=== PATIENT | female | born 1960 | race Caucasian/White ===

== ENCOUNTER → 2017-09-16 09:51 | Outpatient (CLI) | payer OTHER, SELFPAY ==
--- NOTE | 2017-09-16 09:55 | BI_ITS ---
MAMMOGRAPHY - BILATERAL SCREENING REASON FOR EXAM: Female, 57 years old. Routine annual screening examination. PERTINENT HISTORY: Sister with breast cancer. TECHNIQUE: Digital bilateral breast otilia (3D mammographic acquisition) in the CC and MLO projections. 2-D mediolateral oblique (MLO) and craniocaudad (CC) views of both breasts were obtained. CAD: Full Field Digital Mammography with Computer Added Detection was performed. COMPARISON: Comparison is made with prior study dated October 28, 2016 and October 30, 2015. FINDINGS: Breast Composition: The breasts are extremely dense, which lowers the sensitivity of mammography. There are no dominant masses or suspicious calcifications. No other significant abnormalities are identified. There has been no significant change since the prior study. BI/SCREENING MAMM (CAD), BILAT IMPRESSION: Stable bilateral screening mammogram. Yearly follow-up mammogram recommended. (A) ASSESSMENT CATEGORY: BIRADS Category 1: Negative. A letter regarding these results will be sent to the patient by the facility within 30 days. Approximately 10% of breast cancers are not detected by mammography. A normal mammogram should not delay biopsy of a clinically suspicious abnormality. [id number] Electronically Signed: Henrique De Jesus MD at 13:22 EDT Tel [phone], Service support ,
== END ==
PROVIDERS: Family Provider Family Medicine; PCP Family Medicine; Visit Provider Obstetrics & Gynecology
DX: Z12.31 Encounter for screening mammogram for malignant neoplasm of breast (principal)
CPT/HCPCS: 77063; 77067

== ENCOUNTER 2017-09-30 23:34 | Emergency (ER) | payer OTHER, SELFPAY ==
[2017-09-30 23:35] VITALS: BP 136/87; PULSE 87; RESP 16; TEMP 37.1; O2SAT 99; BMI 17.5
[2017-10-01] MEDS: Ondansetron 4 MG/2 ML Vial IV (00:02)
[2017-10-01] MEDS: Ketorolac 30 MG/ML Syringe IV (00:02)
[2017-10-01] MEDS: 0.9% Normal Saline 1,000 ML 250 ML IV (00:02)
--- NOTE | 2017-10-01 00:05 | CT_ITS ---
CT Abdomen And Pelvis W/O Contrast INDICATION: RT FLANK PAIN/BLADDER SPASMS/HX OF KS. COMPARISON: None TECHNIQUE: Noncontrast axial CT examination of the abdomen and pelvis with coronal and sagittal reformatted images. Radiation dose optimization technique applied. FINDINGS: The visualized lung bases are clear. The heart size is normal. The liver, gallbladder, spleen, adrenal glands, and pancreas demonstrate grossly unremarkable noncontrast CT appearance. There is moderate right-sided hydronephrosis and 2 renal calculi are seen in the right distal ureter approximately 2 cm proximal to the right ureterovesicular junction. The calculi measure 3 and 2 mm. A residual 4 mm calculus is present in the mid to inferior pole region of the right kidney. Left kidney is without evidence of nephrolithiasis or hydronephrosis. Bowel loops are nondistended. There is colonic diverticulosis without evidence of acute diverticulitis. The appendix is normal. Urinary bladder is nondistended. Osseous structures are grossly unremarkable. CT/Abdomen/Pelvis without Cont IMPRESSION: 2 calculi (3 and 2 mm) in the right distal ureter approximately 2 cm proximal to the ureterovesicular junction with moderate right-sided hydronephrosis and hydroureter. Residual 3 mm calculus in the right mid to lower pole region. Left kidney without evidence of nephrolithiasis or hydronephrosis. Colonic diverticulosis without evidence of acute diverticulitis. at 0045 Reported and signed by: Katharina Childers MD Electronically Signed: Katharina Childers MD at 0:43 EDT Tel , Service support ,
[2017-10-01 00:07] LABS: Bacteria 0 SEEN /hpf (None Seen); Mucous, Urine 0 SEEN /hpf (<or=2+); Squamous Epithelial Cells - UA 0 SEEN /hpf (5-10); White Blood Cells 0 SEEN /hpf (0-5)
[2017-10-01 00:14] LABS: Color, Urine Yellow (Yellow); Glucose, Dipstick Normal (Normal); Ketone-Dipstick Negative (Negative); Leukocyte Esterase-Dipstick 25 /ul (Negative); Nitrite-Dipstick Positive (Negative); Occult Blood-Urine 150 /ul (Negative); Protein-Dipstick 15 mg/dl (Negative); Specific Gravity, Urine 1.015 (1.002-1.030); Urine Clarity Sl. Cloudy (Clear); Urine Urobilinogen 4 mg/dl (Normal)
[2017-10-01 00:16] LABS: Hematocrit 38.4 % (37-47); Hemoglobin 12.5 g/dl (12.0-15.0); Mean Corp Hgb Conc 32.6 g/gl (32-36); Mean Corpuscular Hgb 29.8 pg (27.0-32.0); Mean Corpuscular Volume 91.4 fL (81-99); Mean Platelet Vol. 10.5 fl (6.2-12.0); POSITIVE COUNT NO; POSITIVE DIFFERENTIAL NO; POSITIVE MORPHOLOGY NO; Platelet Count 248 K/mm3 (150-450); RBC Distribution Width CV 12.7 % (11.6-14.6); RBC Distribution Width SD 41.4 fl (35.1-43.9); White Blood Count 8.2 K/mm3 (4.4-11.0)
[2017-10-01 00:17] LABS: Absolute Lymphocyte Count 2.57 X10^3/ul (0.83-4.51); Absolute Neutrophil Count 4.7 X10^3/uL (2.0-7.7); Basophil# 0.03 X10^3/uL; Basophil% 0.4 % (0-1); Eosinophil# 0.13 X10^3/uL; Eosinophils% 1.6 % (0-5); Lymphocyte # 2.57 X10^3/ul (4.0); Lymphocyte % 31.5 % (19-41); Monocyte# 0.74 X10^3/uL; Monocyte% 9.1 % (0-10); Neutrophil # 4.68 X10^3/uL (2.7-7.7); Neutrophil % 57.3 % (47-70)
[2017-10-01 00:18] LABS: Urine Bilirubin Dipstick 3 mg/dL (Negative)
[2017-10-01 00:19] LABS: Anion Gap 5 (5-15); BUN 16 mg/dL (7-18); BUN/Creat Ratio 22.6 RATIO (10-20); Calcium,Total 9.3 mg/dL (8.5-10.1); Chloride 106 mmol/L (98-107); Creatinine, Serum 0.71 mg/dL (0.55-1.02); EST Glomerular Filtration Rate 90 mL/min (>60); Est Glom Filt Rate - Afr Amer 109 mL/min (>60); Estimated Creatinine Clearance 58.65 ml/min; Glucose 112 mg/dL (74-106); Potassium 3.9 mmol/L (3.5-5.1); Sodium Level 140 mmol/L (136-145)
[2017-10-01 00:28] LABS: Amorphous Sediment 1+; Red Blood Cells-Urine 5-10 SEEN /hpf (0-5)
[2017-10-01] MEDS: Morphine 4 MG/ML Syringe IV (01:04)
--- NOTE | 2017-10-01 01:04 | ED.DCSUM_ITS ---
- ER Visit Summary Date of Service: 10/01/17 Chief Complaint: Right flank pain several days ago. She reports that the pain was then right lower abdomen the following morning. History of Present Illness: The patient is a 57 F who presents with acute right flank pain with radiation to the groin. She now reports spasm and pain in the right lower abdomen. She is presently on Azo. She states that has had no effect. She does report nausea and vomiting. She denies fever, chills night sweats. She denies any HEENT, respiratory or cardiac symptoms. She denies hematemesis, black stool or maroon stool. She does complain of discomfort with urination. She states she feels her bladder is spasming. She reports prior history of kidney stone. Last visit to the ER was 10 years ago. Physical Examination: Vital signs are noted. She appears in obvious discomfort. Head is atraumatic normocephalic. Pupils are equal round reactive. Extraocular muscles are intact. TMs are pearly white with landmarks noted. Nares patent with no drainage. Posterior pharynx without erythema or exudate. Uvula is midline. There is no dysphonia or dysphasia. Trachea is midline. There is no stridor with auscultation of the neck. Heart is regular without murmur, gallop or rub. S1 and S2 are normal. Lungs are clear to auscultation with good movement of air bilaterally. Abdomen is soft nontender with increased bowel sounds. There is no tenderness right lower quadrant. Negative Rovsing sign. She does have right CVA tenderness noted. Test Results: CBC is normal. Electro panels unremarkable. Urine reveals leukoesterase, nitrites and blood; however, the micro reveals 0 WBCs and 0 bacteria. There is no epithelial cells with 5-10 RBCs. There is a comment that there is bilirubin which in my opinion is a false positive result because of the Azo she is taking. CBC and BMP are unremarkable. CT of the abdomen and pelvis without contrast reveals a 2-3 mm right renal calculus. There is also 2 distal ureteral calculi measuring 2 and 3 mm with significant hydroureteronephrosis. Emergency Department Course and Treatment: IV was established and she was treated with 4 mg of Zofran IV push and 30 mrem of Toradol IV push. CT, CBC, BMP and UA was obtained to evaluate her symptoms. Differential includes renal calculi, pyelonephritis, cystitis, ureterolithiasis. Doubt appendicitis. Gynecologic pathology is also in the differential. Treatment Plan: Formed at 0100 that she is having severe pain again. 4 mg of morphine was ordered. Disposition: Was reassessed at 0130. She is pain-free after 2 mg of morphine. She was discharged to home with prescription for Flomax, Percocet and referred to Dr. Rodas Impression: 1. Acute right flank pain secondary to ureterolithiasis with hydroureter and nephrosis 2. Right renal calculus This note was generated with [employer] dictation software. It may contain incorrect words, spelling, and punctuation that were not noted in review of the chart prior to signing ED Disposition - Plan for ED Patient: Disposition: Home or Assisted Living Chief Complaint: Flank Pain Instructions: ED Stone Renal W Colic Prescriptions: Oxycodone HCl/Acetaminophen [Percocet 5/325] 1 tab PO Q6H PRN PRN 5 Days #20 tab PRN Reason: Pain Tamsulosin HCl [Flomax] 0.4 mg PO DAILY #7 cap Naproxen [Naprosyn] 500 mg PO BID #14 tab Referrals: Josesito Sr MD [Primary Care Provider] - Miah Rodas MD [STAFF PHYSICIAN] - 5-7 Days
[2017-10-01] MEDS: oxyCODONE 5 MG Tablet PO (01:56)
[2017-10-01 02:00] VITALS: BP 118/62; PULSE 74; RESP 18; O2SAT 99
== END 2017-10-01 02:01 | disposition home or self-care (01) ==
PROVIDERS: Emergency Provider Emergency Medicine; Family Provider Family Medicine; PCP Family Medicine
DX: N13.2 Hydronephrosis with renal and ureteral calculous obstruction (principal); R10.9 Unspecified abdominal pain; Z87.442 Personal history of urinary calculi; Z79.899 Other long term (current) drug therapy
CPT/HCPCS: 74176; 80048; 81001; 85025; 96361; 96374; 96375; 99282; J7030; J2405

== ENCOUNTER → 2017-10-20 11:59 | Outpatient (CLI) | payer OTHER, SELFPAY ==
[2017-10-24 11:07] LABS: HPV Reflexed? NOT INDICATED
== END ==
PROVIDERS: Visit Provider Obstetrics & Gynecology
DX: Z12.4 Encounter for screening for malignant neoplasm of cervix (principal)
CPT/HCPCS: 88175; G0145

== ENCOUNTER → 2021-01-22 08:34 | Outpatient (CLI) | payer SELFPAY ==
--- NOTE | 2021-01-22 08:39 | BI_ITS ---
MAMMOGRAPHY - BILATERAL SCREENING REASON FOR EXAM: Female, 60 years old. Routine annual screening examination. PERTINENT HISTORY: Sister with breast cancer. TECHNIQUE: Digital bilateral breast otilia (3D mammographic acquisition) in the CC and MLO projections. 2-D mediolateral oblique (MLO) and craniocaudad (CC) views of both breasts were obtained. CAD: Full Field Digital Mammography with Computer Added Detection was performed. COMPARISON: Comparison is made with prior abdomen examination dated 09/16/2017 and 10/28/2016. FINDINGS: Breast Composition: The breasts are extremely dense, which lowers the sensitivity of mammography. There are no dominant masses or suspicious calcifications. No other significant abnormalities are identified. There has been no significant change since the prior study. BI/SCREENING MAMM (CAD), BILAT IMPRESSION: Stable bilateral screening mammogram. Yearly follow-up mammogram recommended. (A) ASSESSMENT CATEGORY: BIRADS Category 1: Negative. A letter regarding these results will be sent to the patient by the facility within 30 days. Approximately 10% of breast cancers are not detected by mammography. A normal mammogram should not delay biopsy of a clinically suspicious abnormality. [id number] Electronically Signed: Henrique De Jesus MD at 9:27 EDT , Service support ,
--- NOTE | 2021-01-22 09:10 | BD_ITS ---
STUDY: DUAL ENERGY X-RAY ABSORPTIOMETRY / DXA REASON FOR EXAM: Female, 60 years old. 733.00OsteoporosisBONE DENSITY REASON FOR EXAM TECHNIQUE: Bone Mineral Density (BMD) measurements of lumbar spine and bilateral hips were obtained. COMPARISON: None. FINDINGS: Lumbar Spine (L1-L4): g/cm2 (0.724) / T-score (-2.9) / Z-score (-1.4) Findings are suggestive of osteoporosis with a high fracture risk. Left Femur Total: g/cm2 (0.500) / T-score (-3.6) / Z-score (-2.5) Left Femoral Neck: g/cm2 (0.406) / T-score (-4.0) / Z-score (-2.6) Right Femur Total: g/cm2 (0.464) / T-score (-3.9) / Z-score (-2.8) Right Femoral Neck: g/cm2 (0.427) / T-score (-3.8) / Z-score (-2.4) BD/Dexa Bone Density Study IMPRESSION: The patient is considered osteoporotic as outlined below according to World Brice Organization (WHO) criteria with a high fracture risk. Reference Information: The T-score is the number of standard deviations above or below the standard which is normal for young adults at their peak bone mineral density. The World Health Organization (WHO) interprets the T-scores as follows: Above -1 Normal bone density Between -1 and -2.5 Osteopenia Equal to / or below -2.5 Osteoporosis As a practical clinical guideline, osteopenia may be graded as follows: Mild -1 through -1.5 Moderate -1.6 through -2.0 Severe -2.1 through -2.4 The Z-score is the number of standard deviations above or below age-matched controls. A Z-score of less than -1.5 would be considered abnormal. References: 1. NIH Osteoporosis and Related Bone Diseases www osteo.org 2. International Society for Clinical Densitometry www iscd.org 3. National Osteoporosis Foundation www nof.org Electronically Signed: Henrique De Jesus MD at 10:58 EDT , Service support ,
== END ==
PROVIDERS: PCP Family Medicine; Referring Provider Family Medicine; Visit Provider Family Medicine
DX: M81.0 Age-related osteoporosis without current pathological fracture (principal); N95.1 Menopausal and female climacteric states; Z12.31 Encounter for screening mammogram for malignant neoplasm of breast
CPT/HCPCS: 77067; 77080

== ENCOUNTER → 2022-01-29 | Outpatient (CLI) | payer SELFPAY ==
--- NOTE | 2022-01-29 08:23 | BI_ITS ---
MAMMOGRAPHY - BILATERAL SCREENING 3-D TOMOSYNTHESIS REASON FOR EXAM: Female, 61 years old. SCREENING PERTINENT HISTORY: No significant family history. TECHNIQUE: 2-D mammograms and 3-D Tomosynthesis of the breast (s) were performed. CAD was performed. COMPARISON: 01/22/2021 FINDINGS: The breast composition is Extermely dense tissue. Scattered benign calcifications are seen. No dense spiculated masses or suspicious microcalcifications are identified. No architectural distortion is identified. There is no skin thickening or retraction. There has been no significant change since the prior study. BI/SCRN MAMM (CAD)W/NASRA BILAT IMPRESSION: No mammographic signs of malignancy. Routine yearly mammograms recommended. ASSESSMENT CATEGORY: BIRADS Category 1: Negative. A letter regarding these results will be sent to the patient by the facility within 30 days. FOLLOW UP RECOMMENDATION: Yearly follow up mammogram recommended. (A) Approximately 10% of breast cancers are not detected by mammography. A normal mammogram should not delay biopsy of a clinically suspicious abnormality. Electronically Signed: Baltazar Beatty MD at 8:23 EDT ,
== END | disposition home or self-care (01) ==
PROVIDERS: PCP Family Medicine; Referring Provider Family Medicine; Visit Provider Family Medicine
DX: Z12.31 Encounter for screening mammogram for malignant neoplasm of breast (principal)
CPT/HCPCS: 77063; 77067

== ENCOUNTER → 2023-01-21 | Outpatient (CLI) | payer SELFPAY ==
--- NOTE | 2023-01-21 12:27 | BI_ITS ---
MAMMOGRAPHY - BILATERAL SCREENING REASON FOR EXAM: Female, 62 years old. Routine annual screening examination. PERTINENT HISTORY: Sister with breast cancer. TECHNIQUE: Digital bilateral breast nasra (3D mammographic acquisition) in the CC and MLO projections. 2-D mediolateral oblique (MLO) and craniocaudad (CC) views of both breasts were obtained. CAD: Full Field Digital Mammography with Computer Added Detection was performed. COMPARISON: Comparison is made with prior study dated January 29, 2022 and January 22, 2021. FINDINGS: Breast Composition: The breasts are extremely dense, which lowers the sensitivity of mammography. There are no dominant masses or suspicious calcifications. Stable small benign-appearing bilateral axillary lymph nodes. No other significant abnormalities are identified. There has been no significant change since the prior study. BI/SCRN MAMM (CAD)W/NASRA BILAT IMPRESSION: Stable bilateral screening mammogram. Yearly follow-up mammogram recommended. (A) ASSESSMENT CATEGORY: BIRADS Category 2: Benign. A letter regarding these results will be sent to the patient by the facility within 30 days. Approximately 10% of breast cancers are not detected by mammography. A normal mammogram should not delay biopsy of a clinically suspicious abnormality. [id number] Electronically Signed: Henrique De Jesus MD at 13:21 EDT ,
== END | disposition home or self-care (01) ==
PROVIDERS: PCP Family Medicine; Referring Provider Family Medicine; Visit Provider Family Medicine
DX: Z12.31 Encounter for screening mammogram for malignant neoplasm of breast (principal); Z80.3 Family history of malignant neoplasm of breast
CPT/HCPCS: 77063; 77067

== ENCOUNTER 2023-11-14 10:00 | Emergency (ER) | payer MEDICARE, BC, SELFPAY ==
[2023-11-14 10:01] VITALS: BP 141/65; PULSE 119; RESP 16; TEMP 36.4; O2SAT 97; BMI 17.5
--- NOTE | 2023-11-14 10:20 | EDS_ITS ---
HPI History of Present Illness Chief Complaint: Back Detail of Chief Complaint: Patient with back pain and palpitations. Informant: patient and spouse/S.O. Onset/Context/Timing Onset: Today and Month(s) Timing: Intermittent Quality: Dull and Aching Location: Lumbar Current Severity: Mild Maximum Severity: Mild Worsened by: improves with Nothing Relieved by: Nothing Associated Symptoms Associated Symptoms: Tingling and Radiation to Right Leg; Negative for Numbness Narrative Narrative: 63-year-old female history of high cholesterol. Since August she has been dealing with lower back pain that she has been seeing a chiropractor for. She is also getting physical therapy. Says at times she has burning discomfort down the right lateral side of her thigh. Denies any fall injury or trauma. No prior back surgery. She is also using a TENS unit. She denies any bowel or bladder incontinence. She denies any weakness to her lower extremities. Denies any fever. No weight change. Today while dealing with her back she had some palpitations. Denies any chest pain. Denies any recent illness. No weight loss or hair loss. Prior similar symptoms: Yes Recent Illness/Hospitalization: No PFSH PFSH Medical History Osteoporosis Hyperlipidemia Family hx of colon cancer Home Medications ?Medication ?Instructions ?Recorded ?Last Taken ?Type atorvastatin 20 mg tablet 20 mg PO QHS 10/01/17 Unknown History multivitamin with folic acid 400 1 tab PO DAILY 10/01/17 Unknown History mcg tablet (Thera) oxycodone-acetaminophen 5 mg-325 1 tab PO Q6H PRN PRN Pain 5 days 10/01/17 Unknown Rx mg tablet #20 tabs tamsulosin 0.4 mg capsule 0.4 mg PO DAILY #7 caps 10/01/17 Unknown Rx alendronate 70 mg tablet 70 mg PO QWEEK 08/23/23 Unknown History Allergy/AdvReac Type Severity Reaction Status Date / Time Sulfa (Sulfonamide Allergy Hives Verified 11/14/23 10:05 Antibiotics) Family History Grandmother Colon cancer Uncle Colon cancer Surgical History Hx of colonoscopy Social History current occupational status: retired Smoking Status: Never smoker substance use type: does not use ROS ROS ED ROS Narrative Denies recent illness. Review of Systems ROS Unobtainable: Denies due to encephalopathy Constitutional Constitutional ED: Denies chills or fever(s) Eyes Eyes: Denies blurry vision ENT ENT ED: Denies ear pain Cardiovascular Cardiovascular: Reports palpitations; Denies chest pain or racing heartbeat Respiratory/Chest Respiratory/Chest: Denies dyspnea Gastrointestinal Gastrointestinal: Denies abdominal pain, constipation, diarrhea, melena, nausea or vomiting Genitourinary Genitourinary ED: Denies dysuria or hematuria Musculoskeletal Musculoskeletal: Reports back pain; Denies arthralgias Integumentary Denies abscess or Abrasions Neurologic Neurologic: Denies headache(s) Psychiatric Psychiatric: Denies anxiety or depression Endocrine Endocrinology: Denies cold intolerance Hematologic/Lymphatic Hematologic/Lymphatic: Denies easy bleeding Allergic/Immunologic Allergic/Immunologic ED: Denies mouth swelling EXAM Physical Exam Narrative Exam Narrative: Well-appearing 63-year-old female. Vital signs are stable afebrile. In triage her heart rate was 119 on my exam it was around 100. Patient is in no acute distress she is sitting upright in bed. at bedside. H EENT exam pupils round reactive light. Moist weeks membranes. Neck nontender no thyromegaly. No lymphadenopathy. Lungs clear to auscultation bilaterally. Heart regular rhythm rate about 100 no murmur. Chest wall and ribs nontender. Abdomen is soft and nontender. Moving all 4 extremities. Calves are nontender without edema or cords. 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 Negative straight leg raise. Normal medial thigh sensation. No cauda equina. 5 out of 5 dorsi and plantarflexion. Back exam there is no cervical, thoracic or lumbar spine tenderness. No soft tissue tenderness. No SI tenderness. No signs of trauma. No redness or warmth. Neurologic exam she is awake and alert with no focal motor deficits. No weakness or numbness. Patient has a very benign unremarkable exam. Const Vital Signs: 11/14/23 10:01 11/14/23 10:33 Temperature 97.6 F L Temperature Source Temporal Pulse Rate 119 H Respiratory Rate 16 Blood Pressure 141/65 H Blood Pressure Mean 90 Pulse Ox 97 Oxygen Delivery Method Room Air Room Air Positive well nourished and well developed; Negative for obese, cachectic, contractures or unkempt General Appearance ED: well developed and NAD; Negative for unkempt, cachectic, contractures or pallor Nutritional Appearance: Negative for cachectic or obese HEENT Reports moist mucous membranes; Denies dry mucous membranes Negative for trauma or tenderness Mouth ED: No dry mucous membranes Mouth: No dry mucous membranes Eyes PERRL and EOMs intact bilaterally General Eye ED: Negative for pale conjunctiva or scleral icterus Neck no lymphadenopathy, supple and no JVD General: Negative for tenderness Thyroid: Negative for other Chest Wall Chest: Negative for other Resp normal respiratory effort and clear to auscultation bilaterally Effort and Inspection: Negative for pain with movement Auscultation: Negative for rales, rhonchi, wheezes or diminished lung sounds Cardio regular rate, regular rhythm, S1 normal heart sound, S2 normal heart sound and no murmurs Rate: Negative for bradycardia or tachycardic Rhythm: Negative for abnormal rhythm Bruits: Negative for other GI normal to inspection, nondistended, normoactive bowel sounds, soft to palpation, non-tender, non-distended and no masses Inspection: Negative for abdominal distention Palpation: Negative for tender, guarding, pulsatile mass or rebound tenderness present Back/Spine normal to inspection and no thoracic nor lumbar tenderness General Back: Negative for CVA tenderness Cervical Spine: Negative for cervical spine tenderness and Negative for paracervical muscle tenderness Thoracic Spine / Upper Back: Negative for paraspinal muscle tenderness Lumbar Spine / Lower Back: Negative for ROM limited Extremity normal to inspection and no clubbing, cyanosis or edema General Extremety ED: Negative for edema or tenderness General Extremity: Negative for edema Neuro oriented x3 and no sensory deficits noted Sensorium / Orientation: alert; Negative for confused, lethargic or stuporous Motor Exam: strength 5/5 throughout; Negative for strength abnormal Psych mental status grossly normal Appearance: Negative for unkempt Attitude: No agitated and No other Mood & Affect: Negative for depressed, sad or tearful Skin no rashes or lesions noted and no wounds General Skin Exam: Negative for jaundice or pallor Lesions: No lesion noted Rashes: No rashes noted Trauma: Negative for abrasion or puncture Wounds: Negative for wounds noted MDM MDM MDM Narrative Medical decision making narrative: 63-year-old female with head back pain intermittently for the last 3 to 4 months. Exam is benign at this time. There is no radiculopathy. There is no weakness or numbness. She can follow-up if this is not improving an MRI of her lumbar spine but at this time she needs no emergent testing for that. This morning she had palpitations currently on my exam she is in sinus rhythm rate of 78. She will undergo cardiac workup for that. Repeat exam patient is doing well. Exam unchanged. She has musculoskeletal back pain and to continue she can follow-up with her primary and he can consider an MRI because she has had this pain intermittently since August but she has a normal exam at this time and no radiculopathy. Normal strength and sensation. Her palpitations that they currently resolved and her cardiac workup is negative. Outpatient follow-up. History & Record Review Discussion w/independent historian: Patient Additional record(s) reviewed:: Prior inpatient record, Prior outpatient record and Prior ED visit Lab Data Attestation: I reviewed the patient's lab results. Lab results narrative: CBC normal. White count of 6. H&H 13 and 40. Platelets 228. Electrolytes show gap 4. Normal BUN and creatinine. Glucose 96. TSH normal at 1.35 and troponin normal at 13. Labs: Laboratory Results - last 24 hr 11/14/23 10:30 WBC 6.2 RBC 4.36 Hgb 13.0 Hct 40.4 MCV 92.7 MCH 29.8 MCHC 32.2 RDW Std Deviation 43.8 RDW Coeff of Kelsie 12.8 Plt Count 228 MPV 10.4 Immature Gran % (Auto) 0.300 Neut % (Auto) 74.4 H Lymph % (Auto) 17.8 L Ramsey % (Auto) 6.5 Eos % (Auto) 0.5 Baso % (Auto) 0.5 Absolute Neuts (auto) 4.6 Absolute Lymphs (auto) 1.10 Nucleated RBC % 0 Sodium 140 Potassium 3.5 Chloride 109 H Carbon Dioxide 27.0 Anion Gap 4 L BUN 12 Creatinine 0.69 Estim Creat Clear Calc 48.19 Est GFR (MDRD) Af Amer 110 Est GFR (MDRD) Non-Af 91 BUN/Creatinine Ratio 17.5 Glucose 96 Calcium 9.3 Troponin I High Sens 13 TSH 1.35 Radiography Chest X-Ray - ED: 1 View, Read by ED Physician, Read by Radiologist, Normal, Heart, Lungs, Mediastinum, Bony Structures and No Acute Disease Diagnostic Testing: Clinical Impression(s) from Imaging Studies Chest X-Ray 11/14/23 10:26 IMPRESSION: Hyperinflation. Prominence of the central pulmonary arteries. Electronically Signed: Henrique De Jesus MD at 11:00 EDT , Chest x-ray, portable, single view interpreted by myself and the radiologist shows no acute abnormality. Normal cardiac silhouette. Normal mediastinum. Rhythm Strip Rhythm Strip: Sinus Rhythm Rate: 78 Ectopy: None EKG Initial EKG: Attestation: I personally reviewed and interpreted this EKG as follows: Interpretation: Sinus Rhythm and No Acute Injury Pattern Comments: Normal sinus rhythm rate of 78. Incomplete left bundle branch block. No acute signs of NH or ischemia. No ST elevation or depression. Discharge Plan Triage Chief Complaint: Back ED Provider: Octavio Skinner Dx/Rx/DC Orders Clinical Impression: Back pain, Heart palpitations Instructions: ED Back Pain (Acute or Chronic), ED Palpitations Prescriptions: No Action alendronate 70 mg tablet 70 mg PO QWEEK atorvastatin 20 MG tablet 20 mg PO QHS multivitamin with folic acid [Thera] 1 TABLET tablet 1 tab PO DAILY oxycodone-acetaminophen 1 TABLET tablet 1 tab PO Q6H PRN PRN (Reason: Pain) 5 Days Qty: 20 0RF tamsulosin 0.4 MG capsule 0.4 mg PO DAILY Qty: 7 0RF Primary Care Provider: Josesito Sr Referrals: Josesito Sr MD [Primary Care Provider] - As soon as possible Activity Restrictions/Additional Instructions: Your test today were normal including your chest x-ray, EKG, heart enzymes, thyroid, electrolytes and blood counts. Your back pain may be musculoskeletal could also be related to a disc. He continues on follow-up your primary care physician and get an MRI to evaluate your back and this more thoroughly. Print Language: Cook Islander Disposition Disposition: Home, Self Care
--- NOTE | 2023-11-14 10:23 | ED.RN ---
NO OLD EKGS
--- NOTE | 2023-11-14 10:26 | RAD_ITS ---
STUDY: X-RAY CHEST REASON FOR EXAM: Female, 63 years old. Chest pain and palpitations. TECHNIQUE: Single AP portable view of the chest. COMPARISON: None. FINDINGS: Hyperinflation. The lungs are clear. There is no demonstrated pleural abnormality. Normal size heart. Normal mediastinum and devora. Prominence of the central pulmonary arteries. Normal visualized aortic arch and descending thoracic aorta. Normal visualized thoracic spine. Normal visualized ribs, clavicles, and shoulders. There is no demonstrated abnormality of the visualized soft tissue structures of the upper abdomen. RAD/Chest 1 View (Portable) IMPRESSION: Hyperinflation. Prominence of the central pulmonary arteries. Electronically Signed: Henrique De Jesus MD at 11:00 EDT ,
--- NOTE | 2023-11-14 10:30 | EKG12_ITS ---
Test Reason : PALP Blood Pressure : / mmHG Vent. Rate : 078 BPM Atrial Rate : 078 BPM P-R Int : 118 ms QRS Dur : 112 ms QT Int : 382 ms P-R-T Axes : 075 -28 088 degrees QTc Int : 435 ms Normal sinus rhythm Incomplete left bundle branch block Nonspecific ST abnormality Abnormal ECG Confirmed by Ayden Orellana ([id number]), supervising editor news reel VANESSA TAO ([id number]) on 11/15/2023 12:51:33 PM Referred By: AJ/LIBERTY Confirmed By:Ayden Orellana
[2023-11-14 10:43] LABS: Absolute Neutrophil Count 4.6 X10^3/uL (2.0-7.7); Basophil# 0.03 X10^3/uL; Basophil% 0.5 % (0-1); Eosinophil# 0.03 X10^3/uL; Eosinophils% 0.5 % (0-5); Hematocrit 40.4 % (37-47); Lymphocyte % 17.8 % (19-41); Mean Corp Hgb Conc 32.2 g/dL (32-36); Mean Corpuscular Hgb 29.8 pg (27.0-32.0); Mean Corpuscular Volume 92.7 fL (81-99); Mean Platelet Vol. 10.4 fl (6.2-12.0); Monocyte% 6.5 % (0-10); NRBC Flagged by Analyzer 0 % (0-5); Neutrophil # 4.61 X10^3/uL (2.7-7.7); Neutrophil % 74.4 % (47-70); Platelet Count 228 K/mm3 (150-450); RBC Distribution Width CV 12.8 % (11.6-14.6); RBC Distribution Width SD 43.8 fl (35.1-43.9); Red Blood Count 4.36 M/mm3 (4.2-5.4); White Blood Count 6.2 K/mm3 (4.4-11.0)
[2023-11-14 11:10] LABS: Anion Gap 4 (5-15); BUN 12 mg/dL (7-18); BUN/Creat Ratio 17.5 RATIO (10-20); Calcium,Total 9.3 mg/dL (8.5-10.1); Chloride 109 mmol/L (98-107); Creatinine, Serum 0.69 mg/dL (0.55-1.02); EST Glomerular Filtration Rate 91 mL/min (>60); Est Glom Filt Rate - Afr Amer 110 mL/min (>60); Estimated Creatinine Clearance 48.19 ml/min; Glucose 96 mg/dL (74-106); Potassium 3.5 mmol/L (3.5-5.1); Sodium Level 140 mmol/L (136-145); Thyroid Stim Hormone (TSH) 1.35 uIU/mL (0.358-3.74); Troponin-I HS 13 pg/mL (3.0-54.0)
[2023-11-14 11:21] VITALS: BP 114/60; PULSE 85; RESP 18; TEMP 36.6; O2SAT 99
== END 2023-11-14 11:26 | disposition home or self-care (01) ==
PROVIDERS: Emergency Provider Emergency Medicine; PCP Family Medicine; Visit Provider Emergency Medicine
DX: M54.9 Dorsalgia, unspecified (principal); E78.00 Pure hypercholesterolemia, unspecified; R00.2 Palpitations
CPT/HCPCS: 71045; 80048; 84443; 84484; 85025; 93005; 99284; A4216

== ENCOUNTER → 2025-01-23 | Outpatient (CLI) | payer MEDICARE, BC, SELFPAY ==
--- NOTE | 2025-01-23 13:17 | BI_ITS ---
EXAM: SCRN MAMM (CAD)W/NASRA BILAT DATE: 01/23/2025 CLINICAL HISTORY: F, Age 64 y/o , SCREENING Sister with breast cancer. TECHNIQUE: Procedure Code: [id number] Modality: MG Procedure: SCRN MAMM (CAD)W/NASRA BILAT COMPARISON: Prior exam(s) dated January 21, 2023.. FINDINGS: TISSUE DENSITY: The breasts are extremely dense, which lowers the sensitivity of mammography. Bilateral Breast Mammographic Findings: No significant masses, calcifications or other abnormalities are identified. No suspicious masses, areas of developing architectural distortion, or suspicious calcifications. There has been no significant interval change. BI/SCRN MAMM (CAD)W/NASRA BILAT IMPRESSION: Stable bilateral screening mammogram. OVERALL FINAL ASSESSMENT BI-RADS 1: NEGATIVE. RECOMMENDATION: Routine annual follow-up in 1 Year A letter with findings and recommendations will be mailed to the patient. Reading Location: [place] [id number]
--- NOTE | 2025-01-23 13:23 | BD_ITS ---
PROCEDURE: DEXA BONE DENSITY STUDY 01/23/2025 REASON FOR EXAM: F, age 64 y/o . Postmenopausal. TECHNIQUE: Procedure Code: BDDBD Modality: DX Procedure: DEXA BONE DENSITY STUDY COMPARISON: Prior study dated January 22, 2021. FINDINGS: BMD and T-SCORES Lumbar spine: 0.744 g/cm2, T-score -2.8 Levels: L1 through L4 Change from prior: Improvement of 2.7%. Left femoral neck: 0.409 g/cm2, T-score -4.0 Femoral neck comparison data not recommended for monitoring change. Left total hip: 0.494 g/cm2, T-score -3.7 Change from prior: Loss of 1.1%. Right femoral neck: 0.413 g/cm2, T-score -3.9 Femoral neck comparison data not recommended for monitoring change. Right total hip: 0.477 g/cm2, T-score -3.8 Change from prior: Improvement of 2.7%. The World Health Organization has defined the following categories based on bone density: Normal bone density: T-score equal to or greater than -1.0 Osteopenia: T-score between -1.0 and -2.5 Osteoporosis: T-score equal to or less than -2.5 FRAX (or Comparable) Fracture Risk Assessment: 10 Year Probability of Fracture: Major Osteoporotic Fracture: 22% Hip Fracture: 10% (Note: FRAX is not to be reported in setting of normal range bone density, osteoporosis on DEXA, known history of osteoporosis, prior osteoporotic hip or vertebral fracture, or for any patient undergoing pharmacological treatment for bone loss.) The National Osteoporosis Foundation (NOF) recommends pharmacological treatment for patients with a FRAX 10-year risk of 3% or higher for a hip fracture, or 20% or higher for a major osteoporotic fracture, to prevent osteoporosis and reduce fracture risk. The patient does meet the pharmacological treatment recommendations for prevention of osteoporosis. BD/Dexa Bone Density Study IMPRESSION: OSTEOPOROSIS. Recommend follow-up as clinically warranted. Reading Location: [place] [id number]
--- OUTSIDE RECORDS SUMMARY | 2025-01-23 20:26 | XMS RPT_ITS | CCD ---
Author Organization 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 Aleah Leon Attending Unavailab le Orin, Dr. Aleah Leon Referring Unavailab le Orin, Dr. Aleah Leon Primary Care Unavailab le ALEAH VILLA Primary Care Unavailable ALEAH VILLA Primary Care Unavailable ALEAH VILLA Primary Care Unavailable Aleah Villa MD Unavailable Zara Santa MD Primary Care Provider Alaeh Villa MD Unavailable [phone] Zara Santa MD Primary Care Provider ZARA SANTA Primary Care Unavailable GUICHO DAVEY Attending Unavailable FARHAT CR Referring Unavailable ALEAH VILLA Primary Care Unavailable ALEAH VILLA Referring Unavailable ALEAH VILLA Primary Care Unavailable ALEAH VILLA Referring Unavailable ALEAH VILLA Primary Care Unavailable ALEAH VILLA Referring Unavailable ALEAH VILLA Primary Care Unavailable ALEAH VILLA Referring Unavailable ALEAH VILLA Primary Care Unavailable ALEAH VILLA Referring Unavailable ALEAH VILLA Primary Care Unavailable ALEAH VILLA Referring Unavailable VILLA, ALEAH O Primary Care Unavailable VILLA, ALEAH O Referring Unavailable VILLA, ALEAH O Primary Care Unavailable VILLA, ALEAH O Referring Unavailable VILLA, ALEAH O Primary Care Unavailable VILLA, ALEAH O Referring Unavailable VILLA, ALEAH O Primary Care Unavailable VILLA, ALEAH O Referring Unavailable VILLA, ALEAH O Primary Care Unavailable VILLA, ALEAH O Referring Unavailable VILLA, ALEAH O Primary Care Unavailable VILLA, ALEAH O Referring Unavailable VILLA, ALEAH O Primary Care Unavailable VILLA, ALEAH O Referring Unavailable VILLA, ALEAH O Primary Care Unavailable VILLA, ALEAH O Referring Unavailable VILLA, ALEAH O Primary Care Unavailable VILLA, ALEAH O Referring Unavailable VILLA, ALEAH O Primary Care Unavailable VILLA, ALEAH O Referring Unavailable VILLA, ALEAH O Primary Care Unavailable VILLA, ALEAH O Referring Unavailable VILLA, ALEAH O Primary Care Unavailable Juan Garrett Attending Unavailable Villa, Aleah O Referring Unavailable Villa, Aleah O Primary Care Unavailable Villa, Aleah O Primary Care Unavailable Zara Santa Referring Unavailable Zara Santa Attending Unavailable VILLAALAEH VENTURA Attending Unavailable VILLAALEAH O Referring Unavailable VILLA, ALEAH O Primary Care Unavailable VILLAALEAH O Attending Unavailable VILLA, ALEAH O Referring Unavailable VILLA, ALEAH O Primary Care Unavailable VILLAALEAH VENTURA O Attending Unavailable VILLAALEAH VENTURA O Referring Unavailable VILLA, ALEAH O Primary Care Unavailable VILLAALEAH VENTURA O Attending Unavailable VILLAALEAH VENTURA O Referring Unavailable VILLA, ALEAH O Primary Care Unavailable VILLAALEAH VENTURA O Attending Unavailable VILLA ALEAH O Primary Care Unavailable MIGUEL A HIGH Attending Unavailable ALEAH VILLA Referring Unavailable ZARA SANTA Primary Care Unavailable ZARA SANTA Attending Unavailable ZARA SANTA Primary Care Unavailable STACY RICHARDSON Attending Unavailable ZARA SANTA Primary Care Unavailable Allergies Allergy Classification Reported Allergen(s) Allergy Type Date of Onset Reaction(s) Facility (9 sources) Sulfonamides (Antibiotic); Translations: [Sulfa Drugs] Allergy to drug (finding) Rash [facility] Work Phone: (5 sources) Sulfonamides (Antibiotic); Translations: [SULFA (SULFONAMIDE ANTIBIOTICS)] Allergy to substance 5 Hives [facility] (17 sources) Sulfonamides (Antibiotic) Drug Intolerance 5 Itching, Rash [facility] (15 sources) Sertraline; Translations: [SERTRALINE] Drug Allergy 4 [facility] Repository (1 source) Sulfonamides (Antibiotic) Drug allergy (disorder) 4 [facility] Repository Medications Current Medications Medication Drug Class(es) Dates Sig (Normalized) Sig (Original) acetaminophen 325 mg / oxyCODONE hydrochloride 5 mg oral tablet (2 sources) Opioid Agonist Start: 10-01-2017 take 1 tablet by mouth every six hours as needed Oxycodone-Acetamino phen Active 1 TABLET PO EVERY 6 HOURS NEEDED 20 October 01, 2017 12:00am alendronic acid 70 mg oral tablet (20 sources) Bisphosphonate Start: 07-11-2023 End: 07-20-2025 alendronate (Fosamax) 70 mg tablet Indications: Osteoporosis, unspecified osteoporosis type, unspecified pathological fracture presence Take 1 tablet (70 mg) by mouth every 7 days. TAKE 1 TABLET ONCE WEEKLY with full glass of water on empty stomach first thing in the morning. To stay upright and avoid eating for 30 min. 12 tablet 3 07/20/2024 07/20/2025 Active Start: 02-04-2021 End: 07-11-2023 alendronate (Fosamax) 70 mg tablet Indications: Osteoporosis, unspecified osteoporosis type, unspecified pathological fracture presence TAKE 1 TABLET ONCE WEEKLY with full glass of water on empty stomach first thing in the morning. To stay upright and avoid eating for 30 min. 12 tablet 3 01/25/2023 07/11/2023 Discontinued (Reorder) atorvastatin 20 mg oral tablet (20 sources) HMG-CoA Reductase Inhibitor Start: 10-01-2017 End: 07-20-2025 take 1 tablet by mouth once daily atorvastatin (Lipitor) 20 mg tablet Indications: Hyperlipidemia, unspecified hyperlipidemia type Take 1 tablet (20 mg) by mouth once daily. 90 tablet 1 07/20/2024 07/20/2025 Active busPIRone hydrochloride 5 mg oral tablet (15 sources) Start: 07-20-2024 take 1 tablet by mouth twice daily busPIRone (Buspar) 5 mg tablet Indications: Mixed anxiety depressive disorder , Tachycardia Take 1 tablet (5 mg) by mouth 2 times a day. 180 tablet 1 07/20/2024 Active Start: 01-23-2024 End: 03-23-2024 take 2 tablets by mouth twice daily busPIRone (Buspar) 5 mg tablet Indications: Mixed anxiety depressive disorder , Tachycardia Take 2 tablets (10 mg) by mouth 2 times a day. 120 tablet 1 01/23/2024 02/22/2024 Discontinued (Dose adjustment) Start: 12-30-2023 End: 12-29-2024 take 1 tablet by mouth twice daily busPIRone (Buspar) 5 mg tablet Indications: Mixed anxiety depressive disorder , Tachycardia Take 1 tablet (5 mg) by mouth 2 times a day. 60 tablet 2 05/30/2024 07/20/2024 Discontinued (Reorder) ciprofloxacin 250 mg oral tablet (20 sources) Quinolone Antimicrobial Start: 01-09-2020 End: 07-11-2023 take 1 tablet by mouth twice daily as needed for urinary tract infection ciprofloxacin (Cipro) 250 mg tablet Indications: Recurrent UTI Take 1 tablet (250 mg) by mouth 2 times a day as needed (uti symptoms). 20 tablet 2 07/11/2023 Active cyclobenzaprine hydrochloride 5 mg oral tablet (4 sources) Muscle Relaxant Start: 07-20-2024 cyclobenzaprine (Flexeril) 5 mg tablet Indications: Lumbar foraminal stenosis Take 1 tablet (5 mg) by mouth if needed for muscle spasms (sciatica). 30 tablet 07/20/2024 Active Start: 05-30-2024 End: 07-20-2024 cyclobenzaprine (Flexeril) 5 mg tablet Indications: Lumbar foraminal stenosis Take 1 tablet (5 mg) by mouth as needed at bedtime for muscle spasms for up to 7 days. 7 tablet 05/30/2024 06/06/2024 Active diazePAM 2 mg oral tablet (8 sources) Benzodiazepine Start: 03-26-2024 End: 04-26-2024 diazePAM (Valium) 2 mg tablet Indications: Mixed anxiety depressive disorder 1/2 tablet 3-4 times per day. 30 tablet 04/26/2024 Active 24 hr metoprolol succinate 25 mg extended release oral tablet (3 sources) beta-Adrenergic Cale Start: 11-23-2023 End: 12-30-2023 take 1 tablet by mouth once daily metoprolol succinate XL (Toprol-XL) 25 mg 24 hr tablet Indications: Tachycardia Take 1 tablet (25 mg) by mouth once daily. Do not crush or chew. 30 tablet 11/23/2023 12/30/2023 Discontinued (Therapy completed) Multivitamin With Folic Acid (Thera) 1 TABLET tablet (2 sources) Start: 10-01-2017 take 1 tablet by mouth once daily Multivitamin With Folic Acid (Thera) 1 TABLET tablet Active 1 TABLET PO DAILY October 01, 2017 12:00am multivitamin with minerals tablet (15 sources) Start: 10-01-2017 take 1 tablet by mouth once daily multivitamin with minerals tablet Take 1 tablet by mouth once daily. 10/01/2017 Active Start: 10-01-2017 take 1 tablet by [facility] once daily multivitamin with minerals tablet Take 1 tablet by mouth once daily. 0 10/01/2017 Active naproxen 500 mg oral tablet (2 sources) Nonsteroidal Anti-inflammatory Drug Start: 10-01-2017 take 500 mg by mouth twice daily Naproxen Active 500 MG PO TWICE A DAY 14 October 01, 2017 12:00am nitrofurantoin, macrocrystals 25 mg / nitrofurantoin, monohydrate 75 mg oral capsule (1 source) Nitrofuran Antibacterial Start: 09-21-2024 End: 09-28-2024 take 1 capsule by mouth twice daily nitrofurantoin, macrocrystal-monoh ydrate, (Macrobid) 100 mg capsule Indications: Dysuria Take 1 capsule (100 mg) by mouth 2 times a day for 7 days. 14 capsule 09/21/2024 09/28/2024 Active saccharomyces boulardii 250 mg oral capsule (2 sources) take 1 capsule by mouth once daily saccharomyces boulardii (Florastor) 250 mg capsule Take 1 capsule (250 mg) by mouth once daily. Active sertraline 25 mg oral tablet (5 sources) Serotonin Reuptake Inhibitor Start: 12-07-2023 End: 12-30-2023 take 1 tablet by mouth once daily sertraline (Zoloft) 25 mg tablet Indications: Mixed anxiety depressive disorder Take 1 tablet (25 mg) by mouth once daily. 30 tablet 1 12/07/2023 12/30/2023 Discontinued (Side effects) Start: 10-01-2017 Sertraline (Zo loft) 25 MG tablet Active 25 MG PO NEEDED October 01, 2017 12:00am tamsulosin hydrochloride 0.4 mg oral capsule (2 sources) alpha-Adrenergic Cale Start: 10-01-2017 take 0.4 mg by mouth once daily Tamsulosin Active 0.4 MG PO DAILY October 01, 2017 12:00am 24 hr venlafaxine 37.5 mg extended release oral capsule (12 sources) Serotonin and Norepinephrine Reuptake Inhibitor Start: 03-26-2024 End: 05-30-2025 take 1 capsule by mouth three times daily venlafaxine XR (Effexor-XR) 37.5 mg 24 hr capsule Indications: Mixed anxiety depressive disorder Take 1 capsule (37.5 mg) by mouth 3 times a day. Do not crush or chew. 90 capsule 11 05/30/2024 05/30/2025 Active Start: 02-22-2024 End: 04-22-2024 take 1 capsule by mouth once daily venlafaxine XR (Effexor-XR) 37.5 mg 24 hr capsule Indications: Mixed anxiety depressive disorder Take 1 capsule (37.5 mg) by mouth once daily. Do not crush or chew. 30 capsule 1 03/26/2024 03/26/2024 Discontinued Completed/Discontinued Medications Medication Drug Class(es) Dates Sig (Normalized) Sig (Original) acyclovir 800 mg oral tablet (4 sources) Herpesvirus Nucleoside Analog DNA Polymerase Inhibitor, Herpes Simplex Virus Nucleoside Analog DNA Polymerase Inhibitor, Herpes Zoster Virus Nucleoside Analog DNA Polymerase Inhibitor Start: 05-29-2020 take 1 tablet by mouth five times daily Acyclovir 800 MG Oral Tablet 1 tab 5 times a day for 7 days Quantity: 35 Refills: 0 Ordered: 29-May-2020 Silvana Loera Start : 29-May-2020 Active amoxicillin 500 mg oral tablet (2 sources) Penicillin-class Antibacterial Start: 07-09-2019 take 2 tablets by mouth twice daily Amoxicillin 500 MG Oral Tablet TAKE 2 TABLETS TWICE DAILY UNTIL GONE. Quantity: 40 Refills: 0 Silvana Loera Start : 09-Jul-2019 Active amoxicillin 875 mg / clavulanate 125 mg oral tablet (2 sources) Penicillin-class Antibacterial Start: 07-06-2019 take 1 tablet by mouth twice daily Amoxicillin-Pot Clavulanate 875-125 MG Oral Tablet Take 1 tablet twice daily Quantity: 20 Refills: 0 Landry ABBYSilvana Start : 06-Jul-2019 Active betamethasone 0.5 mg/ml topical cream (4 sources) Corticosteroid Start: 05-29-2020 Betamethasone Dipropionate 0.05 % External Cream APPLY SPARINGLY TO AFFECTED AREA(S) TWICE DAILY Quantity: 1 Refills: 0 Ordered: 29-May-2020 Silvana Loera Start : 29-May-2020 Active fluconazole 150 mg oral tablet (2 sources) Azole Antifungal Start: 07-06-2019 Fluconazole 150 MG Oral Tablet TAKE 1 TABLET ONCE. MAY REPEAT IN 2 DAYS.. Quantity: 2 Refills: 0 Silvana Loera Start : 06-Jul-2019 Active iohexol (OMNIPaque) 12 mg iodine/mL oral contrast 500 mL (1 source) Start: 01-26-2024 End: 01-26-2024 500 mL, oral, Once in imaging, Starting on Sharda 01/26/24 at 1206, For 1 dose, Administer over 20-60 minutes as directed by imaging protocol and/or imaging provider. CONTRAST - for procedural imaging use only. iohexol (OMNIPaque) 350 mg iodine/mL solution 68 mL (1 source) Start: 01-26-2024 End: 01-26-2024 68 mL, intravenous, Once in imaging, Starting on Sharda 01/26/24 at 1206, For 1 dose LORazepam 0.5 mg oral tablet (7 sources) Benzodiazepine Start: 02-22-2024 End: 03-26-2024 take 0.5 tablet by mouth three times daily LORazepam (Ativan) 0.5 mg tablet Indications: Mixed anxiety depressive disorder Take 0.5 tablets (0.25 mg) by mouth 3 times a day. 45 tablet 02/22/2024 03/26/2024 Discontinued (Med List Cleanup) Start: 01-10-2024 End: 02-22-2024 take 0.5 tablet by mouth twice daily LORazepam (Ativan) 0.5 mg tablet Indications: Mixed anxiety depressive disorder Take 0.5 tablets (0.25 mg) by mouth 2 times a day. 30 tablet 02/02/2024 02/22/2024 Discontinued (Dose adjustment) Start: 12-26-2023 End: 01-25-2024 take 1 tablet by mouth three times daily as needed for anxiety LORazepam (Ativan) 0.5 mg tablet Indications: Mixed anxiety depressive disorder Take 1 tablet (0.5 mg) by mouth 3 times a day as needed for anxiety. 20 tablet 12/26/2023 01/25/2024 Active 72 hr scopolamine 0.0139 mg/hr transdermal system (7 sources) Anticholinergic Start: 07-06-2019 Scopolamine 1 MG/3DAYS Transdermal Patch 72 Hour APPLY 1 PATCH EVERY 3 DAYS as needed Quantity: 4 Refills: 0 Ordered: 06-Jul-2019 Landry MORA Silvana Start : 06-Jul-2019 Active Problems Active Problems Problem Classification Problem Date Documented Date Episodic/Chronic Abdominal pain (2 sources) Unspecified abdominal pain; Translations: [Unspecified abdominal pain] Onset: 01-31-2024 Episodic Allergic reactions (4 sources) Inflammatory dermatosis; Translations: [Contact dermatitis and other eczema, unspecified cause] Episodic Anxiety disorders (20 sources) Mixed anxiety and depressive disorder; Translations: [Anxiety state, unspecified] Onset: 07-11-2023 07-11-2023 Chronic Cardiac and circulatory congenital anomalies (3 sources) Congenital anomaly of pulmonary artery; 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] Onset: 12-09-2023 11-23-2023 Chronic Disorders of lipid metabolism (20 sources) Hyperlipidemia; Translations: [Other and unspecified hyperlipidemia] Onset: 07-07-2023 07-11-2023 Chronic Menopausal disorders (20 sources) Menopausal syndrome; Translations: [Symptomatic menopausal or female climacteric states] Onset: 07-07-2023 07-07-2023 Chronic Nutritional deficiencies (10 sources) Deficiency of macronutrients; Translations: [Unspecified protein-calorie malnutrition] Onset: 03-08-2024 03-08-2024 Chronic Osteoporosis (20 sources) Osteoporosis; Translations: [Osteoporosis, unspecified] Onset: 01-25-2023 01-25-2023 Chronic Other aftercare (6 sources) Patient encounter status; Translations: [Long-term (current) use of other medications] Episodic Other female genital disorders (4 sources) Vaginal irritation; Translations: [Unspecified noninflammatory disorder of vagina] Episodic Other injuries and conditions due to external causes (7 sources) Sea sickness; Translations: [Motion sickness] Episodic Other nervous system disorders (3 sources) Abnormal sensation; Translations: [Other disturbances of skin sensation] 02-22-2024 Episodic Other nutritional; endocrine; and metabolic disorders (1 source) Body mass index less than 20; Translations: [Body Mass Index less than 19, adult] Episodic Other skin disorders (4 sources) Eruption; Translations: [Rash and other nonspecific skin eruption] Episodic Otitis media and related conditions (1 source) Dysfunction of left eustachian tube; Translations: [Other specified disorders of Eustachian tube, left ear] 12-07-2022 Episodic Residual codes; unclassified (2 sources) Menopause present; Translations: [Asymptomatic menopausal state] 07-20-2024 Episodic Spondylosis; intervertebral disc disorders; other back problems (3 sources) Other intervertebral disc displacement, lumbar region; Translations: [Displacement of lumbar intervertebral disc without myelopathy] Onset: 11-18-2023 11-18-2023 Chronic Unclassified (7 sources) Patient encounter status; Translations: [Screening mammogram, encounter for] 07-20-2024 Past or Other Problems Problem Classification Problem Date Documented Date Episodic/Chronic Acute and chronic tonsillitis (9 sources) Tonsillitis; Translations: [Acute tonsillitis] Resolved: 01-09-2020 Episodic Cardiac dysrhythmias (14 sources) Tachycardia, unspecified; Translations: [Tachycardia] Onset: 11-23-2023 Episodic Genitourinary symptoms and ill-defined conditions (20 sources) Urinary crystal, calcium oxalate; Translations: [Other nonspecific findings on examination of urine] Onset: 07-07-2023 07-07-2023 Episodic Nonmalignant breast conditions (15 sources) Mammographic breast tissue appearance; Translations: [Dense breast tissue on mammogram] Onset: 07-07-2023 07-07-2023 Episodic Other circulatory disease (1 source) Elevated blood-pressure reading without diagnosis of hypertension; Translations: [Elevated blood-pressure reading, without diagnosis of hypertension] 12-30-2023 Episodic Other circulatory disease (1 source) Elevated blood-pressure reading, without diagnosis of hypertension; Translations: [Elevated blood-pressure reading, without diagnosis of hypertension] Onset: 02-15-2024 Episodic Other connective tissue disease (13 sources) Pain in buttock; Translations: [Myalgia, other site] Onset: 01-23-2024 01-23-2024 Episodic Other connective tissue disease (2 sources) Myalgia, other site; Translations: [Myalgia, other site] Onset: 01-23-2024 Episodic Other lower respiratory disease (20 sources) Multiple nodules of lung; Translations: [Other nonspecific abnormal finding of lung field] Onset: 07-07-2023 07-07-2023 Episodic Other nervous system disorders (4 sources) Other disturbances of skin sensation; Translations: [Other disturbances of skin sensation] Onset: 02-22-2024 Episodic Other nutritional; endocrine; and metabolic disorders (14 sources) Unintentional weight loss; Translations: [Abnormal weight loss] Onset: 01-23-2024 01-23-2024 Episodic Other nutritional; endocrine; and metabolic disorders (4 sources) Abnormal weight loss; Translations: [Abnormal weight loss] Onset: 01-23-2024 Episodic Other screening for suspected conditions (not mental disorders or infectious disease) (20 sources) Mammographic breast density; Translations: [Other (abnormal) findings on radiological examination of breast] Onset: 01-31-2024 Resolved: 06-18-2021 01-25-2023 Episodic Residual codes; unclassified (3 sources) Asymptomatic menopausal state; Translations: [Asymptomatic menopausal state] Onset: 07-20-2024 Episodic Spondylosis; intervertebral disc disorders; other back problems (20 sources) Stenosis of lumbar vertebral foramen; Translations: [Spinal stenosis, lumbar region without neurogenic claudication] Onset: 12-07-2023 02-22-2024 Episodic Unclassified (9 sources) Drug therapy finding; Translations: [On antibiotic therapy] Resolved: 06-18-2021 Unclassified (15 sources) Onset: 07-11-2023 Resolved: 07-20-2024 07-11-2023 Urinary tract infections (20 sources) Recurrent urinary tract infection; Translations: [Urinary tract infection, site not specified] Onset: 07-07-2023 07-11-2023 Episodic NEGATED: Highlighted row has not occurred!Residual codes; unclassified (3 sources) Disease Episodic Results Test Name Value Interpretation Reference Range Facility CULTURE, URINE, ROUTINEon CULTURE, URINE, ROUTINE SEE NOTE Normal [facility] Comment on above: Result Comment: CULTURE, URINE, ROUTINE Micro Number: [id number] Test Status: Final Specimen Source: Urine Specimen Quality: Adequate Result: No Growth Performed By: #### 3 95 #### [facility] [address], [address] [place] [id number] Concert Promoter: James Pena MD POCT UA (nonautomated w/o mi croscopy) manually resultedOrdered By: Maggy Medeiros on 09-21-2024 Appearance (U) Clear Clear [facility] Glucose Test strip (U) [Mass/Vol] 100 (1+) Abnormal NEGATIVE mg/dl [facility] Hemoglobin Ql (U) Negative NEGATIVE [facility] Interpretation and review of laboratory results Abnormal [facility] Leukocyte esterase Test strip Ql (U) Negative NEGATIVE [facility] Nitrite Ql (U) Positive Abnormal NEGATIVE [facility] pH (U) 6.0 [pH] No Reference Range Established [facility] POC Bilirubin, Urine Negative NEGATIVE [facility] POC Color, Urine Ocean Abnormal Straw, [place] ow, Light-Yellow [facility] POC Ketones, Urine Negative NEGATIVE mg/dl Un [facility] POC Protein, Urine 30 (1+) Abnormal NEGATIVE mg/dl Un [facility] POC Specific [place], Urine 1.010 1.005 - 1.035 [facility] POC Urobilinogen, Urine 1.0 0.2, 1.0 EU/DL [facility] CBC (H/H, RBC, INDICES, WBC, PLT)on 07-12-2024 Erythrocyte distribution width (RBC) [Ratio] 12.9 % Normal 11.0-15.0 [facility] Comment on above: Performed By: #### 1 983, [id number], 1509 #### [facility] [address], [address] [place] [id number] Concert Promoter: James Pena MD Hematocrit (Bld) [Volume fraction] 39.7 % Normal 35.0-45.0 [facility] Comment on above: Performed By: #### 1 759, [id number], 7600 #### [facility] [place] [address] Concert Promoter: James Pena MD Hemoglobin (Bld) [Mass/Vol] 13.1 g/dL Normal 11.7-15.5 [facility] Comment on above: Performed By: #### 1 759, 53083, 7600 #### [facility] [place] [address] Concert Promoter: James Pena MD MCH (RBC) [Entitic mass] 30.8 pg Normal 27.0-33.0 [facility] Comment on above: Performed By: #### 1 499, 66209, 7600 #### [facility] [place] [address] Concert Promoter: James Pena MD MCHC (RBC) [Mass/Vol] 33.0 g/dL Normal 32.0-36.0 [facility] Comment on above: Result Comment: For adults, a slight decrease in the calculated MCHC value (in the range of 30 to 32 g/dL) is most likely not clinically significant; however, it should be interpreted with caution in correlation with other red cell parameters and the patient's clinical condition. Performed By: #### 1 02, 07490, 7600 #### [facility] [place] [address] Concert Promoter: James Pena MD MCV (RBC) [Entitic vol] 93.4 fL Normal 80.0-100.0 [facility] Comment on above: Performed By: #### 1 9, 78598, 7600 #### [facility] [place] [address] Concert Promoter: James Pena MD Platelet mean volume (Bld) [Entitic vol] 10.5 fL Normal 7.5-12.5 [facility] Comment on above: Performed By: #### 1 54, 93791, 7600 #### [facility] of [address], [address] [place] [address] Concert Promoter: James Pena MD Platelets (Bld) [#/Vol] 263 10*3/uL Normal 140-400 [facility] Comment on above: Performed By: #### 1 759, 61510, 7600 #### [facility] of [address], [address] [place] [address] Concert Promoter: James Pena MD RBC (Bld) [#/Vol] 4.25 10*6/uL Normal 3.80-5.10 [facility] Comment on above: Performed By: #### 1 759, 35328, 7600 #### [facility] of [address], [address] [place] [address] Concert Promoter: James Pena MD WBC (Bld) [#/Vol] 5.4 10*3/uL Normal 3.8-10.8 [facility] Comment on above: Performed By: #### 1 759, 90421, 7600 #### [facility] of [place] [address] Concert Promoter: James Pena MD COMPREHENSIVE METABOLIC PANE L W/ANION GAPon 07-12-2024 Albumin [Mass/Vol] 4.6 g/dL Normal 3.6-5.1 [facility] Comment on above: Performed By: #### 1 759, 34919, 7600 #### [facility] of [place] [address] Concert Promoter: James Pena MD ALP [Catalytic activity/Vol] 45 U/L Normal 37-153 [facility] Comment on above: Performed By: #### 1 759, 96452, 7600 #### [facility] of [place] [address] Concert Promoter: James Pena MD ALT [Catalytic activity/Vol] 17 U/L Normal 6-29 [facility] Comment on above: Performed By: #### 1 759, 59457, 7600 #### [facility] of [address], [address] [place] [address] Concert Promoter: James Pena MD AST [Catalytic activity/Vol] 19 U/L Normal 10-35 [facility] Comment on above: Performed By: #### 1 759, 61664, 7600 #### [facility] of [address], [address] [place] [address] Concert Promoter: James Pena MD Bilirubin [Mass/Vol] 0.9 mg/dL Normal 0.2-1.2 [facility] Comment on above: Performed By: #### 1 759, 07684, 7600 #### [facility] of [place] [address] Concert Promoter: James Pena MD Calcium [Mass/Vol] 9.1 mg/dL Normal 8.6-10.4 [facility] Comment on above: Performed By: #### 1 759, 36871, 7600 #### [facility] of [address], [address] [place] [address] Concert Promoter: James Pena MD Chloride [Moles/Vol] 105 mmol/L Normal 98-110 [facility] Comment on above: Performed By: #### 1 759, 19022, 7600 #### [facility] of [place] [address] Concert Promoter: James Pena MD CO2 [Moles/Vol] 27 mmol/L Normal 20-32 [facility] Comment on above: Performed By: #### 1 759, 89609, 7600 #### [facility] of [place] [address] Concert Promoter: James Pena MD Creatinine [Mass/Vol] 0.51 mg/dL Normal 0.50-1.05 [facility] Comment on above: Performed By: #### 1 759, 70557, 7600 #### [facility] of [address] [place] [address] Concert Promoter: James Pena MD ELECTROLYTE BALANCE 8 mmol/L (calc) Normal 7-17 [facility] Comment on above: Performed By: #### 1 759, 88980, 7600 #### [facility] [place] [address] Concert Promoter: James Pena MD GFR/1.73 sq M.predicted among non-blacks MDRD (S/P/Bld) [Vol rate/Area] 104 mL/min/{1.73_m2} Normal > OR = 60 [facility] Comment on above: Performed By: #### 1 759, 89889, 7600 #### [facility] of [place] [address] Concert Promoter: James Pena MD Glucose [Mass/Vol] 87 mg/dL Normal 65-99 [facility] Comment on above: Result Comment: Fasting reference interval Performed By: #### 1 759, 82373, 7600 #### [facility] of [place] [address] Concert Promoter: James Pena MD Potassium [Moles/Vol] 4.6 mmol/L Normal 3.5-5.3 [facility] Comment on above: Performed By: #### 1 759, 07829, 7600 #### [facility] of [place] [address] Concert Promoter: James Pena MD Protein [Mass/Vol] 7.0 g/dL Normal 6.1-8.1 [facility] Comment on above: Performed By: #### 1 759, 57642, 7600 #### [facility] of [place] [address] Concert Promoter: James Pena MD Sodium [Moles/Vol] 140 mmol/L Normal 135-146 [facility] Comment on above: Performed By: #### 1 759, 09355, 7600 #### [facility] of [address] [place] [address] Concert Promoter: James Pena MD Urea nitrogen [Mass/Vol] 13 mg/dL Normal 7-25 [facility] Comment on above: Performed By: #### 1 439, 57623, 7600 #### [facility] [address], [address] [place] [address] Concert Promoter: James Pena MD LIPID PANEL, [facility] 03-0 Cholesterol [Mass/Vol] 197 mg/dL Normal <200 [facility] Comment on above: Order Comment: FASTI NG:YES FASTING: YES Performed By: #### 1 759, 73216, 7600 #### [facility] [address], [address] [place] [address] Concert Promoter: James Pena MD Cholesterol in HDL [Mass/Vol] 59 mg/dL Normal > OR = 50 [facility] Comment on above: Order Comment: FASTI NG:YES FASTING: YES Performed By: #### 1 399, 04245, 7600 #### [facility] [address], [address] [place] [address] Concert Promoter: James Pena MD Cholesterol in LDL [Mass/Vol] 120 mg/dL High [facility] Comment on above: Order Comment: FASTI NG:YES FASTING: YES Result Comment: Refe rence range: <100 Desirable range <100 mg/dL for primary prevention; <70 mg/dL for patients with CHD or diabetic patients with > or = 2 CHD risk factors. LDL-C is now calculated using the Roverto calculation, which is a validated novel method providing better accuracy than the Friedewald equation in the estimation of LDL-C. Michael PETERSEN et al. LORENE. 2013;310(19): 2467-7761 (http://education.CardinalCommerce.Deal In City/faq/UTX539) Performed By: #### 1 419, 53999, 7600 #### [facility] [address], [address] [place] [address] Concert Promoter: James Pena MD Cholesterol.total/ Cholesterol in HDL [Mass ratio] 3.3 {ratio} Normal <5.0 [facility] Comment on above: Order Comment: FASTI NG:YES FASTING: YES Performed By: #### 1 733, 42053, 4310 #### [facility] [address], [address] [place] [address] Concert Promoter: James Pena MD NON HDL CHOLESTEROL 138 mg/dL (calc) High <130 [facility] Comment on above: Order Comment: FASTI NG:YES FASTING: YES Result Comment: For patients with diabetes plus 1 major ASCVD risk factor, treating to a non-HDL-C goal of <100 mg/dL (LDL-C of <70 mg/dL) is considered a therapeutic option. Performed By: #### 1 438, 33626, 2199 #### [facility] [address], [address] [place] [address] Concert Promoter: James Pena MD Triglyceride [Mass/Vol] 84 mg/dL Normal <150 [facility] Comment on above: Order Comment: FASTI NG:YES FASTING: YES Performed By: #### 1 413, 92291, 4099 #### [facility] [address], [address] [place] [address] Concert Promoter: James Pena MD 12 Lead EKG performed by [facility] on 02-15-2024 12 Lead EKG performed by [address] [address] 12 Lead EKG performed by [facility] 02/15/24 0950 MR#: [id number] Acct: [id number] Name: SILVANA PEREA MIGUEL Rep #: [id number] : 1960 63 From: Juan Garrett MD Attending Dr: Dr. Juan Garrett MD Status: DEP A MB Ordering Dr: Juan Garrett MD Date: 02/15/24 Location: [facility] Sex: F C Admitted: [facility]/12 Lead EKG performed by [facility] ECG Report Interpretation --Sinus Rhythm -Short VA syndrome Merlin = [id number] RHYTHMElectronically signed on 02/24/2024 at 09:56 by Juan Garrett Software Version 8610 02/24/2458 Date Juan Garrett MD CC: Dr. Aleah Villa MD Date Dictated: 02/15/24949 Date Transcribed: 02/15/24949 Personal Protection Specialist: [place] Signed Normal [facility] Cardiology Visit Reporton Cardiology Visit Report [facility]. [address] [place] [address] OFFICE VISIT Date of Service: 02/15/24 MR#: [id number] Acct: [id number] Name: SILVANA PEREA MIGUEL Rep #: [id number] : 1960 Provider: Dr. Juan Garrett MD Age/Sex: 63/F Location: [facility] Status: Signed HPI HPI History of Present Illness Details: Pleasant 63-year-old lady with no previous cardiac history but a family history of premature cardiac as well as back discomfort. This has led to some significant anxiety in her life. She had presented to the emergency room with palpitations and markedly elevated blood pressure. She was put on a beta-cale which she was taking as needed. Also as part of her workup she had an echocardiogram done which demonstrated an ejection fraction of 59% normal right ventricular size and pressures were noted the valves were noted to be fairly structurally normal. 3 years ago she had had a coronary CT with a calcium score of 31. Her lipid profile demonstrates a total cholesterol 175 HDL of 56 LDL of 105. She has been on atorvastatin 20 mg a day. An EKG from November of this year demonstrated normal sinus rhythm with a left bundle branch block at 78 bpm and EKG from today demonstrates sinus rhythm with a rate of 93 bpm. Her physical exam is otherwise unremarkable her lab work is also unremarkable. Intake Vital Signs 11/14/23 10:01 02/15/24 09:49 Height 5 ft 2 in 5 ft 2 in Weight: 89 lb BMI 16.2 BP 116/61 Blood Pressure Location Lt brachial Position Sitting Respiration 16 Pulse 93 Pulse Source Monitor Intake Visit Reasons: Tachycardia ([place]) Drug Counselor Required: No Accompanied by: Is patient in pain?: No Allergies Sulfa (Sulfonamide Antibiotics) Allergy (Verified 02/15/24 09:55) Hives sertraline Adverse Reaction (Severe, Verified 02/15/24 09:55) overwhelming tingling, jittery, shakiness, hypertension Medications ???Medication ???Instructions ???Recorded ???Confirmed ???Type atorvastatin 20 mg tablet 20 mg PO QHS 10/01/17 02/15/24 History multivitamin with folic acid 400 1 tab PO DAILY 10/01/17 02/15/24 History mcg tablet (Thera) alendronate 70 mg tablet 70 mg PO QWEEK 08/23/23 02/15/24 History buspirone 5 mg tablet 5 mg PO BID 01/03/24 02/15/24 History lorazepam 0.5 mg tablet 0.25 mg PO TID 02/15/24 02/15/24 History Have you fallen in the past year?: No PFSH Medical History Anxiety Renal calculi Multiple lung nodules Lumbar foraminal stenosis Blood pressure elevated without history of HTN Mixed anxiety depressive disorder Tachycardia Osteoporosis Hyperlipidemia Family hx of colon cancer Surgical History Hx of colonoscopy Family History Grandmother Colon cancer Uncle Colon cancer Social History current occupational status: retired Smoking Status: Never smoker substance use type: does not use ROS Const Const: Positive for fatigue and poor appetite; Negative for weakness, headache(s), daytime sleepiness or difficulty sleeping ENT ENT: Negative for headache(s), dizziness or Nosebleed/epistaxis Cardio Chest Pain: No Palpitations: Yes feels like its: fast Edema: None Resp Respiratory: Positive for SOB at rest (with anxiety); Negative for SOB with activity, SOB orthopnea SOB lying down or Cough GI GI: Negative nausea, vomiting or heartburn Neuro Neuro: Negative for dizziness, lightheadedness, near syncope, headache(s) or weakness Endo Endo: Positive for fatigue Cardiology Exam Const Appearance: cooperative, healthy appearing, no acute distress, well developed and well groomed Nutritional Appearance: average body habitus and well nourished Orientation: alert, awake and oriented x3 Head Head: normal to inspection, normocephalic and atraumatic Ears: hearing grossly normal bilaterally and external ears normal Nose: external nose normal, nares normal, nasal mucous membranes and turbinates normal, septum normal and no nasal discharge Face and Sinus: face symmetric Mouth: oral mucosae normal, tongue normal, oropharynx normal and moist mucous membranes Teeth and gingiva: dentition normal Throat: posterior oropharynx normal, tonsils normal and uvula midline Eyes General: appearance normal, both eyes and all related structures Eyelids: eyelids normal Conjunctivae: conjunctivae normal Pupils: PERRL, normal by confrontation and accommodation normal EOM: EOM intact bilaterally Neck Neck: normal visual inspection, trachea midline and no JVD JVD: +5 Carotids: normal carotid upstroke and bounding pulses Chest Chest inspection (more content not included)... Normal [facility] Urinalysis complete W Reflex Culture panel (U)on 01-31-2024 Appearance (U) Clear Normal Clear [facility] Comment on above: Performed By: #### 5 8077-9 #### SURINDER TURCIOS ([id number]) [facility] ([facility]) [address] [place] [address] Bilirubin (U) [Mass/Vol] Negative Normal NEGATIVE [facility] Comment on above: Performed By: #### 5 8077-9 #### SURINDER TURCIOS ([id number]) [facility] ([facility]) [address] [place] [address] 71016 Color (U) Colorless Normal Light-Yellow, Yellow, Dark-Yellow [facility] Comment on above: Performed By: #### 5 8077-9 #### SURINDER TURCIOS ([id number]) [facility] ([facility]) [address] [place] [address] 90766 Glucose Auto test strip (U) [Mass/Vol] Normal Normal Normal [facility] Comment on above: Performed By: #### 5 8077-9 #### SURINDER TURCIOS ([id number]) [facility] ([facility]) [address] [place] [address] 89369 Ketones (U) [Mass/Vol] Negative Normal NEGATIVE [facility] Comment on above: Performed By: #### 5 8077-9 #### SURINDER TURCIOS ([id number]) [facility] ([facility]) [address] [place] [address] 77898 Leukocyte esterase Auto test strip Ql (U) Negative Normal NEGATIVE [facility] Comment on above: Performed By: #### 5 8077-9 #### SURINDER TURCIOS ([id number]) [facility] ([facility]) [address] [place] [address] 96703 Nitrite Auto test strip Ql (U) Negative Normal NEGATIVE [facility] Comment on above: Performed By: #### 5 8077-9 #### SURINDER TURCIOS ([id number]) [facility] ([facility]) [address] [place] [address] 78482 pH (U) 6.5 [pH] Normal 5.0, 5.5, 6.0, 6.5, 7.0, 7.5, 8.0 [facility] Comment on above: Performed By: #### 5 8077-9 #### SURINDER TURCIOS ([id number]) [facility] ([facility]) [address] [place] [address] 98328 Protein (U) [Mass/Vol] Negative Normal NEGATIVE, 10 (TRACE), 20 (TRACE) [facility] Comment on above: Performed By: #### 5 8077-9 #### SURINDER TURCIOS ([id number]) [facility] ([facility]) [address] [place] [address]73 RBC (U) [#/Vol] Negative Normal NEGATIVE [facility] Comment on above: Performed By: #### 5 8077-9 #### SURINDER TURCIOS ([id number]) [facility] ([facility]) [address] [place] [address] 83623 Specific gravity (U) [Rel density] 1.004 Normal 1.005-1.035 [facility] Comment on above: Performed By: #### 5 8077-9 #### SURINDER TURCIOS ([id number]) [facility] ([facility]) [address] [place] [address] 34585 Urobilinogen (U) [Mass/Vol] Normal Normal Normal [facility] Comment on above: Performed By: #### 5 8077-9 #### SURINDER TURCIOS ([id number]) [facility] ([facility]) [address] [place], [place] [address] CT ABDOMEN PELVIS W IV CONTR Zainab 01-26-2024 CT ABDOMEN PELVIS W IV CONTRAST Interpreted By: Maggie Castañeda and Meyers Emily STUDY: CT ABDOMEN PELVIS W IV CONTRAST; 01/26/2024 12:05 pm INDICATION: Signs/Symptoms:weight loss. ,R63.4 Abnormal weight loss COMPARISON: CT chest without contrast 09/19/2020 ACCESSION NUMBER(S): [id number] ORDERING CLINICIAN: ALEAH VILLA TECHNIQUE: CT of the abdomen and pelvis was performed. Standard contiguous axial images were obtained at 3 mm slice thickness through the abdomen and pelvis. Coronal and sagittal reconstructions at 3 mm slice thickness were performed. 68 mL Omnipaque 350 contrast administered intravenously without immediate complication. In addition, 500 mL oral contrast was also administered. FINDINGS: Abdomen: The liver, gallbladder, spleen, pancreas, and adrenal glands are within normal limits. Small accessory splenule is noted. Mild bilateral hydroureteronephrosis with mild proximal urothelial thickening and enhancement (series 2, image 48 and 65). No evidence of obstruction. Punctate nonobstructing right renal calculi. The bowel is normal caliber, without evidence of obstruction, focal bowel wall thickening, or inflammatory process. The appendix appears normal. No mesenteric or retroperitoneal lymphadenopathy. No ascites. Vascular structures are unremarkable. Pelvis: Disproportionate degree of bladder wall thickening for the amount of bladder distention. The uterus is present. Calcified uterine fibroid at the uterine fundus. No pelvic lymphadenopathy. Bones: No acute osseous abnormality. Lung bases: No focal consolidation, pleural effusion, or pneumothorax within the partially visualized lung bases. Previously noted solid pulmonary nodules measuring up to 0.[address] chest without contrast dated 09/19/2020 are beyond the [id number] on current examination. No new solid pulmonary nodule within the visualized lower lungs. IMPRESSION: 1. Mild bilateral hydroureteronephrosis with mild proximal urothelial thickening and enhancement, findings which in conjunction with disproportionate degree of bladder wall thickening raise concern for pyelonephritis and cystitis. Recommend correlation with urinalysis. 2. Punctate nonobstructing right renal calculi. 3. Calcified fundal uterine fibroid. 4. Additional findings as detailed above. I personally reviewed the images/study, and I agree with the findings as stated above. This study was interpreted at [place], [place]. MACRO: None. Signed by: Maggie Castañeda 01/27/2024 10:24 PM Dictation workstation: [id number] Normal [facility] CBC panel Auto (Bld)on 12-29 Erythrocyte distribution width (RBC) [Ratio] 12.7 % Normal 11.5-14.5 [facility] Comment on above: Performed By: #### 5 8410-2 #### SURINDER TURCIOS ([id number]) [facility] ([facility]) [address] [place] [address]5531 Hematocrit (Bld) [Volume fraction] 40.2 % Normal 36.0-46.0 [facility] Comment on above: Performed By: #### 5 8410-2 #### SURINDER TURCIOS ([id number]) [facility] ([facility]) [address] [place] [address]1669 Hemoglobin (Bld) [Mass/Vol] 12.8 g/dL Normal 12.0-16.0 [facility] Comment on above: Performed By: #### 5 8410-2 #### SURINDER TURCIOS ([id number]) [facility] ([facility]) [address] [place] [address] 43114 MCH (RBC) [Entitic mass] 30.3 pg Normal 26.0-34.0 [facility] Comment on above: Performed By: #### 5 8410-2 #### SURINDER TURCIOS ([id number]) [facility] ([facility]) [address] [place] [address] 44025 MCHC (RBC) [Mass/Vol] 31.8 g/dL Low 32.0-36.0 [facility] Comment on above: Performed By: #### 5 8410-2 #### SURINDER TURCIOS ([id number]) [facility] ([facility]) [address] [place] [address] 06767 MCV (RBC) [Entitic vol] 95 fL Normal 80-100 [facility] Comment on above: Performed By: #### 5 8410-2 #### SURINDER TURCIOS ([id number]) [facility] ([facility]) [address] [place] [address] 36252 Nucleated RBC/100 WBC (Bld) [Ratio] 0.0 /100 WBCs Normal 0.0-0.0 [facility] Comment on above: Performed By: #### 5 8410-2 #### SURINDER TURCIOS ([id number]) [facility] ([facility]) [address] [place] [address] 94196 Platelets (Bld) [#/Vol] 253 x10*3/uL Normal 150-450 [facility] Comment on above: Performed By: #### 5 8410-2 #### SURINDER TURCIOS ([id number]) [facility] ([facility]) [address] [place] [address] 97360 RBC (Bld) [#/Vol] 4.22 x10*6/uL Normal 4.00-5.20 [facility] Comment on above: Performed By: #### 5 8410-2 #### SURINDER TURCIOS ([id number]) [facility] ([facility]) [address] [place] [address] 22670 WBC (Bld) [#/Vol] 6.7 x10*3/uL Normal 4.4-11.3 [facility] Comment on above: Performed By: #### 5 8410-2 #### SURINDER TURCIOS ([id number]) [facility] ([facility]) [address] [place] [address] 62077 Cobalaminson 12-30-2023 Cobalamin (Vitamin B12) [Mass/Vol] 449 pg/mL Normal 211-911 [facility] Comment on above: Performed By: #### 2 132-9 #### SURINDER TURCIOS ([id number]) [facility] ([facility]) [address] [place] [address] 07967 Comprehensive metabolic 2000 panelon 12-30-2023 Albumin BCP dye [Mass/Vol] 4.8 g/dL Normal 3.4-5.0 [facility] Comment on above: Performed By: #### 2 4323-8 #### SURINDER TURCIOS ([id number]) [facility] ([facility]) [address] [place] [address] 61560 ALP [Catalytic activity/Vol] 37 U/L Normal 33-136 [facility] Comment on above: Performed By: #### 2 4323-8 #### SURINDER TURCIOS ([id number]) [facility] ([facility]) [address] [place] [address] 02813 ALT With P-5'-P [Catalytic activity/Vol] 12 U/L Normal 7-45 [facility] Comment on above: Result Comment: Halle ents treated with Sulfasalazine may generate falsely decreased results for ALT. Performed By: #### 2 4323-8 #### SURINDER TURCIOS ([id number]) [facility] ([facility]) [address] [place] [address] 12864 Anion gap [Moles/Vol] 11 mmol/L Normal 10-20 [facility] Comment on above: Performed By: #### 2 4323-8 #### SURINDER TURCIOS ([id number]) [facility] ([facility]) [address] [place] [address] 40576 AST With P-5'-P [Catalytic activity/Vol] 17 U/L Normal 9-39 [facility] Comment on above: Performed By: #### 2 4323-8 #### SURINDER TURCIOS ([id number]) [facility] ([facility]) [address] [place] [address] 91952 Bilirubin [Mass/Vol] 1.1 mg/dL Normal 0.0-1.2 [facility] Comment on above: Performed By: #### 2 4323-8 #### SURINDER TURCIOS ([id number]) [facility] ([facility]) [address] [place] [address] 55459 Calcium [Mass/Vol] 9.9 mg/dL Normal 8.6-10.3 [facility] Comment on above: Performed By: #### 2 4323-8 #### SURINDER TURCIOS ([id number]) [facility] ([facility]) [address] [place] [address] 14346 Chloride [Moles/Vol] 104 mmol/L Normal 98-107 [facility] Comment on above: Performed By: #### 2 4323-8 #### SURINDER TURCIOS ([id number]) [facility] ([facility]) [address] [place] [address] 59804 CO2 [Moles/Vol] 29 mmol/L Normal 21-32 [facility] Comment on above: Performed By: #### 2 4323-8 #### SURINDER TURCIOS ([id number]) [facility] ([facility]) [address] [place] [address] 48894 Creatinine [Mass/Vol] 0.54 mg/dL Normal 0.50-1.05 [facility] Comment on above: Performed By: #### 2 4323-8 #### SURINDER TURCIOS ([id number]) [facility] ([facility]) [address] [place] [address] 61055 GFR/1.73 sq M.predicted MDRD (S/P/Bld) [Vol rate/Area] mL/min/{1.73_m2} Normal >60 [facility] Comment on above: Result Comment: Calc ulations of estimated GFR are performed using the 2020 CKD-EPI Study Refit equation without the race variable for the IDMS-Traceable creatinine methods. https://jasn.asnjournals.org/content//ASN.877730902 8 Performed By: #### 2 4323-8 #### SURINDER TURCIOS ([id number]) [facility] ([facility]) [address] [place] [address] 56125 Glucose [Mass/Vol] 89 mg/dL Normal 74-99 [facility] Comment on above: Performed By: #### 2 4323-8 #### SURINDER TURCIOS ([id number]) [facility] ([facility]) [address] [place] [address] 96821 Potassium [Moles/Vol] 4.3 mmol/L Normal 3.5-5.3 [facility] Comment on above: Performed By: #### 2 4323-8 #### SURINDER TURCIOS ([id number]) [facility] ([facility]) [address] [place] [address] 67814 Protein [Mass/Vol] 7.5 g/dL Normal 6.4-8.2 [facility] Comment on above: Performed By: #### 2 4323-8 #### SURINDER TURCIOS ([id number]) [facility] ([facility]) [address] [place] [address] 77452 Sodium [Moles/Vol] 140 mmol/L Normal 136-145 [facility] Comment on above: Performed By: #### 2 4323-8 #### SURINDER TURCIOS ([id number]) [facility] ([facility]) [address] [place], [place] [phone] Urea nitrogen [Mass/Vol] 8 mg/dL Normal 6-23 [facility] Comment on above: Performed By: #### 2 4323-8 #### SURINDER TURCIOS ([id number]) [facility] ([facility]) [address] [place], [place] [address] [facility]on 12-30-2023 Magnesium [Mass/Vol] 2.28 mg/dL Normal 1.60-2.40 [facility] Comment on above: Performed By: #### 1 9123-9 #### SURINDER TURCIOS ([id number]) [facility] ([facility]) [address] [place], [place] [address] TRANSTHORACIC ECHO (TTE) COM PLETEon 12-09-2023 TRANSTHORACIC ECHO (TTE) [place] [address] [phone], TRANSTHORACIC ECHOCARDIOGRAM REPORT Patient Name: SILVANA PEREA Reading Physician: [id number] Lawrence Lepe MD Study Date: 12/09/2023 Ordering Provider: [id number] ALEAH VILLA MRN/PID: [id number] Fellow: Nurse: Bailey Lopez RN Date of /Age: 3 1960 / 63 years Block Captain: OSBALDO Bain RVT Gender: F Additional Staff: Height: 154.94 cm Admit Date: Weight: 42.64 kg Admission Status: Outpatient BSA / BMI: 1.37 m2 / 17.76 Department Location: [facility] Echo Lab kg/m2 Blood Pressure: 126 /64 mmHg Study Type: TRANSTHORACIC ECHO (TTE) COMPLETE 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 Study Detail: The following Echo studies were performed: 2D, M-Mode, Doppler and color flow. Definity used as a contrast agent for endocardial border definition. Total contrast used for this procedure was 2 mL via IV push. A bubble study was not performed. The patient was awake. PHYSICIAN INTERPRETATION: Left Ventricle: Left ventricular ejection fraction is normal, calculated by Larsen's biplane at 59%. There are no regional wall motion abnormalities. The left ventricular cavity size is normal. Left ventricular diastolic filling was indeterminate. Left Atrium: The left atrium was not well visualized. Right Ventricle: The right ventricle is normal in size. There is normal right ventricular global systolic function. Right ventricle visualized an off axis view; but appears to have grossly normal size and systolic function. Right Atrium: The right atrium was not well visualized. Aortic Valve: The aortic valve was not well visualized. The aortic valve dimensionless index is 0.74. There is no evidence of aortic valve regurgitation. The peak instantaneous gradient of the aortic valve is 5.4 mmHg. The mean gradient of the aortic valve is 3.0 mmHg. Mitral Valve: The mitral valve is normal in structure. There is no evidence of mitral valve regurgitation. Tricuspid Valve: The tricuspid valve is structurally normal. There is trace tricuspid regurgitation. Pulmonic Valve: The pulmonic valve is not well visualized. The pulmonic valve regurgitation was not well visualized. Pericardium: There is a trivial pericardial effusion. Aorta: The aortic root was not well visualized. Systemic Veins: The inferior vena cava appears to be of normal size. There is IVC inspiratory collapse greater than 50%. In comparison to the previous echocardiogram(s): There are no prior studies on this patient for comparison purposes. CONCLUSIONS: 1. Left ventricular ejection fraction is normal, calculated by Larsen's biplane at 59%. 2. Left ventricular diastolic filling was indeterminate. 3. There is normal right ventricular global systolic function. RECOMMENDATIONS: Technically suboptimal and limited study, therefore accuracy of above interpretation could be substantially diminished. Clinical correlation is advised. Consider additional imaging modalities if clinically indicated. QUANTITATIVE DATA SUMMARY: 2D MEASUREMENTS: Normal Ranges: Ao Root d: 2.30 cm (2.0-3.7cm) LAs: 2.10 cm (2.7-4.0cm) IVSd: 0.72 cm (0.6-1.1cm) LVPWd: 0.84 cm (0.6-1.1cm) LVIDd: 3.28 cm (3.9-5.9cm) LVIDs: 2.04 cm LV Mass Index: 47.8 g/m2 LV % FS 37.8 % LA VOLUME: Normal Ranges: LA Vol A4C: 15.6 ml (22+/-6mL/m2) LA Vol A2C: 22.4 ml LA Vol BP: 21.1 ml LA Vol Index A4C: 11.4ml/m2 LA Vol Index A2C: 16.3 ml/m2 LA Vol Index BP: 15.4 ml/m2 LA Area A4C: 7.5 cm2 LA Area A2C: 10.1 cm2 LA Major Oakley A4C: 3.0 cm LA Major Oakley A2C: 3.9 cm LA Volume Index: 16.4 ml/m2 LA Vol A4C: 15.1 ml LA Vol A2C: 22.4 ml LV SYSTOLIC FUNCTION BY 2D PLANIMETRY (MOD): Normal Ranges: EF-A4C View: 60 % (>=55%) EF-A2C View: 58 % EF-Biplane: 59 % LV EF Reported: 59 % LV DIASTOLIC FUNCTION: Normal Ranges: MV Peak E: 0.95 m/s (0.7-1.2 m/s) MV Peak A: 1.13 m/s (0.42-0.7 m/s) E/A Ratio: 0.84 (1.0-2.2) MV e' 0.101 m/s (>8.0) MV lateral e' 0.12 m/s MV medial e' 0.09 m/s E/e' Ratio: 9.45 (<8.0) MITRAL VALVE: Normal Ranges: MV DT: 158 msec (150-240msec) AORTIC VALVE: Normal Ranges: AoV Vmax: 1.16 m/s (<=1.7m/s) AoV Peak P.4 mmHg (<20mmHg) AoV Mean P.0 mmHg (1.7-11.5mmHg) LVOT Max Larry: 0.96 m/s (<=1.1m/s) AoV VTI: 24.50 cm (18-25cm) LVOT VTI: 18.20 cm LVOT Diameter: 1.80 cm (1.8-2.4cm) AoV Area, VTI: 1.89 cm2 (2.5-5.5cm2) AoV Area,Vmax: 2.10 cm2 (2.5-4.5cm2) AoV Dimensionless Index: 0.74 RIGHT VENTRICLE: RV Basal 2.34 cm RV Mid 1.55 cm RV Major 5.2 cm TAPSE: 12.2 mm TRICUSPID VALVE/RVSP: Normal Ranges: Peak TR Velocity: 1.91 m/s RV Syst Pressure: 17.6 mmHg (< 30mmHg) PULMONIC VALVE: Normal Ranges: PV Accel Time: 106 msec (>12 (more content not included)... Normal [facility] MR LUMBAR SPINE WO IV CONTRA STon 11-18-2023 MR LUMBAR SPINE WO IV CONTRAST Interpreted By: Caro Cazares, STUDY: MRI of the lumbar spine without IV contrast; 11/18/2023 12:39 pm INDICATION: Signs/Symptoms:DISC DISPLACEMENT. COMPARISON: None. ACCESSION NUMBER(S): [id number] ORDERING CLINICIAN: INTERFACE UNSPECIFIELDPROVIDER TECHNIQUE: Sagittal and axial STIR and T1-weighted MRI images of the lumbar spine were acquired using a spondylolysis protocol. No contrast was administered. FINDINGS: For counting purposes the last lumbarized vertebral body is labeled L5. There is trace retrolisthesis of L3 on L4. Alignment, vertebral body heights and marrow signal pattern are otherwise within normal limits. Minimal edema along the superior anterior endplate of L2 is likely degenerative. There is desiccated disc signal at L3-L4 and L4-L5 without loss of disc space height. The conus terminates at T12-L1 and is unremarkable. Prevertebral soft tissues are not thickened. Prominent extrarenal pelvis is noted on the right. Evaluation by level: T12-L1: No spinal canal or neural foraminal stenosis. L1-L2: No spinal canal or neural foraminal stenosis. L2-L3: No spinal canal or neural foraminal stenosis. L3-L4: Disc bulge and facet arthrosis. No spinal canal stenosis. Mild neural foraminal stenosis. L4-L5: Disc bulge and facet arthrosis. No spinal canal stenosis. Mild bilateral neural foraminal stenosis L5-S1: No spinal canal or neural foraminal stenosis. IMPRESSION: Mild degenerative changes in the lower lumbar spine without spinal canal stenosis. Mild bilateral neural foraminal stenosis at L3-L4 and L4-L5. I personally reviewed the images/study and I agree with the findings as stated. This study was interpreted at [place], [place]. MACRO: None Signed by: Caro Cazares 11/18/2023 3:08 PM Dictation workstation: [id number] [facility] MR Lumbar spine WO contrasto n 11-18-2023 Mild degenerative changes in the lower lumbar spine without spinal canal stenosis. Mild bilateral neural foraminal stenosis at L3-L4 and L4-L5. I personally reviewed the images/study and I agree with the findings as stated. This study was interpreted at [place], [place]. MACRO: None Signed by: Caro Cazares 11/18/2023 3:08 PM Dictation workstation: [id number] [facility] Interpreted By: Caro Montemayor, STUDY: MRI of the lumbar spine without IV contrast; 11/18/2023 12:39 pm INDICATION: Signs/Symptoms:DISC DISPLACEMENT. COMPARISON: None. ACCESSION NUMBER(S): [id number] ORDERING CLINICIAN: INTERFACE UNSPECIFIELDPROVIDER TECHNIQUE: Sagittal and axial STIR and T1-weighted MRI images of the lumbar spine were acquired using a spondylolysis protocol. No contrast was administered. FINDINGS: For counting purposes the last lumbarized vertebral body is labeled L5. There is trace retrolisthesis of L3 on L4. Alignment, vertebral body heights and marrow signal pattern are otherwise within normal limits. Minimal edema along the superior anterior endplate of L2 is likely degenerative. There is desiccated disc signal at L3-L4 and L4-L5 without loss of disc space height. The conus terminates at T12-L1 and is unremarkable. Prevertebral soft tissues are not thickened. Prominent extrarenal pelvis is noted on the right. Evaluation by level: T12-L1: No spinal canal or neural foraminal stenosis. L1-L2: No spinal canal or neural foraminal stenosis. L2-L3: No spinal canal or neural foraminal stenosis. L3-L4: Disc bulge and facet arthrosis. No spinal canal stenosis. Mild neural foraminal stenosis. L4-L5: Disc bulge and facet arthrosis. No spinal canal stenosis. Mild bilateral neural foraminal stenosis L5-S1: No spinal canal or neural foraminal stenosis. [facility] Caro Cazares MD - 11/18/2023 Interpreted By: Caro Cazares, STUDY: MRI of the lumbar spine without IV contrast; 11/18/2023 12:39 pm INDICATION: Signs/Symptoms:DISC DISPLACEMENT. COMPARISON: None. ACCESSION NUMBER(S): [id number] ORDERING CLINICIAN: INTERFACE UNSPECIFIELDPROVIDER TECHNIQUE: Sagittal and axial STIR and T1-weighted MRI images of the lumbar spine were acquired using a spondylolysis protocol. No contrast was administered. FINDINGS: For counting purposes the last lumbarized vertebral body is labeled L5. There is trace retrolisthesis of L3 on L4. Alignment, vertebral body heights and marrow signal pattern are otherwise within normal limits. Minimal edema along the superior anterior endplate of L2 is likely degenerative. There is desiccated disc signal at L3-L4 and L4-L5 without loss of disc space height. The conus terminates at T12-L1 and is unremarkable. Prevertebral soft tissues are not thickened. Prominent extrarenal pelvis is noted on the right. Evaluation by level: T12-L1: No spinal canal or neural foraminal stenosis. L1-L2: No spinal canal or neural foraminal stenosis. L2-L3: No spinal canal or neural foraminal stenosis. L3-L4: Disc bulge and facet arthrosis. No spinal canal stenosis. Mild neural foraminal stenosis. L4-L5: Disc bulge and facet arthrosis. No spinal canal stenosis. Mild bilateral neural foraminal stenosis L5-S1: No spinal canal or neural foraminal stenosis. IMPRESSION: Mild degenerative changes in the lower lumbar spine without spinal canal stenosis. Mild bilateral neural foraminal stenosis at L3-L4 and L4-L5. I personally reviewed the images/study and I agree with the findings as stated. This study was interpreted at [facility], [place], [place]. MACRO: None Signed by: Caro Cazares 11/18/2023 3:08 PM Dictation workstation: [id number] [facility] Work Phone: Radiology Study observation (narrative) [facility] Work Phone: MR Lumbar spine WO contrastO rdered By: Caro Cazares on 11-18-2023 [facility] Work Phone: CBC W Auto Differential pane l (Bld)on 07-08-2023 Basophils (Bld) [#/Vol] 0.05 x10*3/uL Normal 0.00-0.10 [facility] Comment on above: Performed By: #### 5 7021-8 #### SURINDER TURCIOS ([id number]) [facility] ([facility]) [address] [place] [address] 80253 Basophils/100 WBC (Bld) 1.0 % Normal 0.0-2.0 [facility] Comment on above: Performed By: #### 5 7021-8 #### SURINDER TURCIOS ([id number]) [facility] ([facility]) [address] [place] [address] 23537 Eosinophils (Bld) [#/Vol] 0.15 x10*3/uL Normal 0.00-0.70 [facility] Comment on above: Performed By: #### 5 7021-8 #### SURINDER TURCIOS ([id number]) [facility] ([facility]) [address] [place] [address] 54872 Eosinophils/100 WBC (Bld) 2.9 % Normal 0.0-6.0 [facility] Comment on above: Performed By: #### 5 7021-8 #### SURINDER TURCIOS ([id number]) [facility] ([facility]) [address] [place] [address] 92011 Erythrocyte distribution width (RBC) [Ratio] 12.9 % Normal 11.5-14.5 [facility] Comment on above: Performed By: #### 5 7021-8 #### SURINDER TURCIOS ([id number]) [facility] ([facility]) [address] [place] [address] 76748 Hematocrit (Bld) [Volume fraction] 39.2 % Normal 36.0-46.0 [facility] Comment on above: Performed By: #### 5 7021-8 #### SURINDER TURCIOS ([id number]) [facility] ([facility]) [address] [place] [address] Hemoglobin (Bld) [Mass/Vol] 12.6 g/dL Normal 12.0-16.0 [facility] Comment on above: Performed By: #### 5 7021-8 #### SURINDER TURCIOS ([id number]) [facility] ([facility]) [address] [place], [place] [address] Immature granulocytes (Bld) [#/Vol] 0.01 x10*3/uL Normal 0.00-0.70 [facility] Comment on above: Performed By: #### 5 7021-8 #### SURINDER TURCIOS ([id number]) [facility] ([facility]) [address] [place] [address] 15420 Immature granulocytes/100 WBC (Bld) 0.2 % Normal 0.0-0.9 [facility] Comment on above: Result Comment: Danielle ture Granulocyte Count (IG) includes promyelocytes, myelocytes and metamyelocytes but does not include bands. Percent differential counts (%) should be interpreted in the context of the absolute cell counts (cells/UL). Performed By: #### 5 7021-8 #### SURINDER TURCIOS ([id number]) [facility] ([facility]) [address] [place] [address] 63865 Lymphocytes (Bld) [#/Vol] 1.95 x10*3/uL Normal 1.20-4.80 [facility] Comment on above: Performed By: #### 5 7021-8 #### SURINDER TURCIOS ([id number]) [facility] ([facility]) [address] [place] [address] 90524 Lymphocytes/100 WBC (Bld) 38.2 % Normal 13.0-44.0 [facility] Comment on above: Performed By: #### 5 7021-8 #### SURINDER TURCIOS ([id number]) [facility] ([facility]) [address] [place] [address] 35219 MCH (RBC) [Entitic mass] 29.9 pg Normal 26.0-34.0 [facility] Comment on above: Performed By: #### 5 7021-8 #### SURINDER TURCIOS ([id number]) [facility] ([facility]) [address] [place] [address] 01145 MCHC (RBC) [Mass/Vol] 32.1 g/dL Normal 32.0-36.0 [facility] Comment on above: Performed By: #### 5 7021-8 #### SURINDER TURCIOS ([id number]) [facility] ([facility]) [address] [place] [address] 71964 MCV (RBC) [Entitic vol] 93 fL Normal 80-100 [facility] Comment on above: Performed By: #### 5 7021-8 #### SURINDER TURCIOS ([id number]) [facility] ([facility]) [address] [place] [address] 26277 Monocytes (Bld) [#/Vol] 0.43 x10*3/uL Normal 0.10-1.00 [facility] Comment on above: Performed By: #### 5 7021-8 #### SURINDER TURCIOS ([id number]) [facility] ([facility]) [address] [place] [address] 56184 Monocytes/100 WBC (Bld) 8.4 % Normal 2.0-10.0 [facility] Comment on above: Performed By: #### 5 7021-8 #### SURINDER TURCIOS ([id number]) [facility] ([facility]) [address] [place] [address] 91650 Neutrophils (Bld) [#/Vol] 2.51 x10*3/uL Normal 1.20-7.70 [facility] Comment on above: Result Comment: Perc ent differential counts (%) should be interpreted in the context of the absolute cell counts (cells/uL). Performed By: #### 5 7021-8 #### SURINDER TURCIOS ([id number]) [facility] ([facility]) [address] [place] [address] 41887 Neutrophils/100 WBC (Bld) 49.3 % Normal 40.0-80.0 [facility] Comment on above: Performed By: #### 5 7021-8 #### SURINDER TURCIOS ([id number]) [facility] ([facility]) [address] [place] [address] 34514 Nucleated RBC/100 WBC (Bld) [Ratio] 0.0 /100 WBCs Normal 0.0-0.0 [facility] Comment on above: Performed By: #### 5 7021-8 #### SURINDER TURCIOS ([id number]) [facility] ([facility]) [address] [place] [address] 83800 Platelets (Bld) [#/Vol] 226 x10*3/uL Normal 150-450 [facility] Comment on above: Performed By: #### 5 7021-8 #### SURINDER TURCIOS ([id number]) [facility] ([facility]) [address] [place] [address] 78841 RBC (Bld) [#/Vol] 4.21 x10*6/uL Normal 4.00-5.20 [facility] Comment on above: Performed By: #### 5 7021-8 #### SURINDER TURCIOS ([id number]) [facility] ([facility]) [address] [place] [address] 52704 WBC (Bld) [#/Vol] 5.1 x10*3/uL Normal 4.4-11.3 [facility] Comment on above: Performed By: #### 5 7021-8 #### SURINDER TURCIOS ([id number]) [facility] ([facility]) [address] [place] [address] 32730 Comprehensive metabolic 2000 panelon 03-01-2024 Albumin BCP dye [Mass/Vol] 4.3 g/dL Normal 3.4-5.0 [facility] Comment on above: Performed By: #### 2 4323-8 #### SURINDER TURCIOS ([id number]) [facility] ([facility]) [address] [place] [address] ALP [Catalytic activity/Vol] 42 U/L Normal 33-136 [facility] Comment on above: Performed By: #### 2 4323-8 #### SURINDER TURCIOS ([id number]) [facility] ([facility]) [address] [place] [address] 54476 ALT With P-5'-P [Catalytic activity/Vol] 14 U/L Normal 7-45 [facility] Comment on above: Result Comment: Halle ents treated with Sulfasalazine may generate falsely decreased results for ALT. Performed By: #### 2 4322-8 #### SURINDER TURCIOS ([id number]) [facility] ([facility]) [address] [place] [address] 98929 Anion gap [Moles/Vol] 11 mmol/L Normal 10-20 [facility] Comment on above: Performed By: #### 2 4322-8 #### SURINDER TURCIOS ([id number]) [facility] ([facility]) [facility] [place] [address] AST With P-5'-P [Catalytic activity/Vol] 19 U/L Normal 9-39 [facility] Comment on above: Performed By: #### 2 3-8 #### SURINDER TURCIOS ([id number]) [facility] ([facility]) [facility] [place] [address] Bilirubin [Mass/Vol] 0.7 mg/dL Normal 0.0-1.2 [facility] Comment on above: Performed By: #### 2 4323-8 #### SURINDER TURCIOS ([id number]) [facility] ([facility]) [address] [place] [address] 04422 Calcium [Mass/Vol] 9.6 mg/dL Normal 8.6-10.3 [facility] Comment on above: Performed By: #### 2 4323-8 #### SURINDER TURCIOS ([id number]) [facility] ([facility]) [address] [place] [address] 85158 Chloride [Moles/Vol] 108 mmol/L High 98-107 [facility] Comment on above: Performed By: #### 2 4323-8 #### SURINDER TURCIOS ([id number]) [facility] ([facility]) [address] [place] [address] 34813 CO2 [Moles/Vol] 27 mmol/L Normal 21-32 [facility] Comment on above: Performed By: #### 2 4323-8 #### SURINDER TURCIOS ([id number]) [facility] ([facility]) [address] [place] [address] 57572 Creatinine [Mass/Vol] 0.60 mg/dL Normal 0.50-1.05 [facility] Comment on above: Performed By: #### 2 4323-8 #### SURINDER TURCIOS ([id number]) [facility] ([facility]) [address] [place] [address] 77902 GFR/1.73 sq M.predicted MDRD (S/P/Bld) [Vol rate/Area] mL/min/{1.73_m2} Normal >60 [facility] Comment on above: Result Comment: Calc ulations of estimated GFR are performed using the 2020 CKD-EPI Study Refit equation without the race variable for the IDMS-Traceable creatinine methods. https://jasn.asnjournals.org/content/early//ASN.443035211 8 Performed By: #### 2 4323-8 #### SURINDER TURCIOS ([id number]) [facility] ([facility]) [address] [place] [address] 80982 Glucose [Mass/Vol] 88 mg/dL Normal 74-99 [facility] Comment on above: Performed By: #### 2 4323-8 #### SURINDER TURCIOS ([id number]) [facility] ([facility]) [address] [place] [address] 14538 Potassium [Moles/Vol] 4.3 mmol/L Normal 3.5-5.3 [facility] Comment on above: Performed By: #### 2 4323-8 #### SURINDER TURCIOS ([id number]) [facility] ([facility]) [address] [place] [address] 90270 Protein [Mass/Vol] 6.9 g/dL Normal 6.4-8.2 [facility] Comment on above: Performed By: #### 2 4323-8 #### SURINDER TURCIOS ([id number]) [facility] ([facility]) [address] [place] [address] 33560 Sodium [Moles/Vol] 142 mmol/L Normal 136-145 [facility] Comment on above: Performed By: #### 2 4323-8 #### SURINDER TURCIOS ([id number]) [facility] ([facility]) [address] [place] [address] 83547 Urea nitrogen [Mass/Vol] 12 mg/dL Normal 6-23 [facility] Comment on above: Performed By: #### 2 4323-8 #### SURINDER TURCIOS ([id number]) [facility] ([facility]) [address] [place] [address] 14935 Lipid 1996 panelon 4 Cholesterol [Mass/Vol] 175 mg/dL Normal 0-199 [facility] Comment on above: Result Comment: Age Desirable Borderline High High 0-19 Y 0 - 169 170 - 199 >/= 200 20-24 Y 0 - 189 190 - 224 >/= 225 >24 Y 0 - 199 200 - 239 >/= 240 All ranges are based on fasting samples. Specific therapeutic targets will vary based on patient-specific cardiac risk. Pediatric guidelines reference:Pediatrics 2011, 128(S5).Adult guidelines reference: NCEP ATPIII Guidelines,LORENE 2001, 258:2486-97 Venipuncture immediately after or during the administration of Metamizole may lead to falsely low results. Testing should be performed immediately prior to Metamizole dosing. Performed By: #### 2 4331-1 #### SURINDER TURCIOS ([id number]) [facility] ([facility]) [address] [place] [address] 77247 Cholesterol in HDL [Mass/Vol] 56.0 mg/dL Normal [facility] Comment on above: Result Comment: Age Very Low Low Normal High 0-19 Y < 35 < 40 40-45 ---- 20-24 Y ---- < 40 >45 ---- >24 Y ---- < 40 40-60 >60 Performed By: #### 2 4331-1 #### SURINDER TURCIOS ([id number]) [facility] ([facility]) [address] [place] [address] 84060 Cholesterol in LDL [Mass/Vol] 105 mg/dL High <=99 [facility] Comment on above: Result Comment: Near Borderline AGE Desirable Optimal High High Very High 0-19 Y 0 - 109 --- 110-129 >/= 130 ---- 20-24 Y 0 - 119 --- 120-159 >/= 160 ---- >24 Y 0 - 99 100-129 130-159 160-189 >/=190 Performed By: #### 2 4331-1 #### SURINDER TURCIOS ([id number]) [facility] ([facility]) [address] [place] [address] 28665 Cholesterol in VLDL [Mass/Vol] 14 mg/dL Normal 0-40 [facility] Comment on above: Performed By: #### 2 4331-1 #### SURINDER TURCIOS ([id number]) [facility] ([facility]) [address] [place] [address] 94887 CHOLESTEROL/HDL RATIO 3.1 Normal [facility] Comment on above: Result Comment: Ref Values Desirable < 3.4 High Risk > 5.0 Performed By: #### 2 4331-1 #### SURINDER TURCIOS ([id number]) [facility] ([facility]) [address] [place] [address] 63833 NON HDL CHOLESTEROL 119 mg/dL Normal 0-149 [facility] Comment on above: Result Comment: Age Desirable Borderline High High Very High 0-19 Y 0 - 119 120 - 144 >/= 145 >/= 160 20-24 Y 0 - 149 150 - 189 >/= 190 ---- >24 Y 30 mg/dL above LDL Cholesterol goal Performed By: #### 2 4331-1 #### SURINDER TURCIOS ([id number]) [facility] ([facility]) [facility] [place] [address] Triglyceride [Mass/Vol] 69 mg/dL Normal 0-149 [facility] Comment on above: Result Comment: Age Desirable Borderline High High Very High 0 D-90 D 19 - 174 ---- ---- ---- 91 D- 9 Y 0 - 74 75 - 99 >/= 100 ---- 10-19 Y 0 - 89 90 - 129 >/= 130 ---- 20-24 Y 0 - 114 115 - 149 >/= 150 ---- >24 Y 0 - 149 150 - 199 200- 499 >/= 500 Venipuncture immediately after or during the administration of Metamizole may lead to falsely low results. Testing should be performed immediately prior to Metamizole dosing. Performed By: #### 2 [id number] #### SURINDER TURCIOS ([id number]) [facility] ([facility]) [address] [place] [id number] Office Visiton 06-17-2022 Follow-up visit Diagnoses/Problems BMI less than 19,adult (V85.0) (Z68.1) Screening mammogram, encounter for (V76.12) (Z12.31) Recurrent UTI (599.0) (N39.0) Osteoporosis (733.00) (M81.0) Hyperlipidemia (272.4) (E78.5) Calcium oxalate crystals in urine (791.9) (R82.998) Orders Hyperlipidemia Renew: Atorvastatin Calcium 20 MG Oral Tablet; TAKE 1 TABLET DAILY Follow-up visit in 1 year Outpatient Follow-up Status: Hold For - Scheduling Requested for: 17Jun2022 Comprehensive Metabolic Panel; Status:Active; Requested for:17Jun2023; Lipid Panel; Status:Active; Requested for:17Jun2023; Recurrent UTI Renew: Ciprofloxacin HCl - 250 MG Oral Tablet; Take 1 tablet twice daily Screening mammogram, encounter for Mamm - Screening Mammogram w/ Tomosynthesis; Status:Hold For - Scheduling; Requested for:17Jun2022; Radiologist to Determine Optimal Study : Y What are the patient's signs and symptoms ? : Annual Screening Mammogram Chief Complaint medck History of Present IllnessAnxiety and depression - doing well. She had been on medications for years. Then her son 4 years ago. But has now been able to wean off of it for almost 3 years. Had a bad flight so wondering if something for that but does not want. Can try anti motion sickness. Calcium oxalate crystals in urine - drinking a lot of fluids. No special meds. Last stone spring 2017 and then 10 years before that. Good GFR and CBC Dense breast tissue on mammogram - Normal mammogram 01/29/22 Hyperlipidemia NOS - Med works well without side effects. Up some this year to 201/122. No Chest pain, Dyspnea, palpitations, numbness, weakness, edema, claudications, or double vision/ loss of vision. FMH positive so got CACS 31. 10 year risk 4.5% Feels exercise not as consistent. Multiple lung nodules - all under 5 mm and she is not at risk. No further needed. Osteoporosis - on Fosamax No broken bones. No falls DEXA 01/22/21. T score at hip -4.0. She is on Vitamin D, but calcium constipates her. Is on feet a lot. Recurrent UTI - She will get on Cipro about 2-3 per year for a couple days Colon Cancer - scope in 2013. Rotator Cuff weakness. Good strength. Impingement. So will do exercises Active Problems Calcium oxalate crystals in urine (791.9) (R82.998) Encounter for routine gynecological examination () (Z01.419) Hyperlipidemia (272.4) (E78.5) Medication management (V58.69) (Z79.899) Menopausal state (627.2) (N95.1) Osteoporosis (733.00) (M81.0) Recurrent UTI (599.0) (N39.0) Screening mammogram, encounter for (.12) (Z12.31) Past Medical History History of Blood tests prior to treatment or procedure (V72.63) (Z01.812) Resolved Date: 18 Jun 2021 History of On antibiotic therapy Resolved Date: 18 Jun 2021 History of Screening for breast cancer (V76.10) (Z12.39) Resolved Date: 18 Jun 2021 History of Screening for malignant neoplasm of breast (V76.10) (Z12.39) Resolved Date: 18 Jun 2021 History of Tonsillitis with exudate (463) (J03.90) Resolved Date: 09 Jan 2020 Surgical History History of Colonoscopy Dr. 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 To stay upright and avoid eating for 30 min. Atorvastatin Calcium 20 MG Oral TabletTAKE 1 TABLET DAILY. Ciprofloxacin HCl - 250 MG Oral TabletTake 1 tablet twice daily Vitals Vital Signs Recorded: [id number] 09:38AM Heart Rate76 Uslmiptz380, LUE Eumynjccy67, LUE Height5 ft 1.5 in Kiarbj42 lb BMI Nxyjaaqjou93.22 kg/m2 BSA Calculated1.4 Tobacco Useb) No PHQ-2 #1. Over the last 2 weeks have you felt down, depressed or hopeless? (If yes, answer PHQ-9 below)No PHQ-2 #2. Over the last 2 weeks have you felt little interest or pleasure in doing things? (If yes, answer PHQ-9 below)No Falls Screening (Age 18+)a) No falls within the last year Physical Exam Physical Examination General: Alert and oriented, No acute distress. Eye: Pupils are equal, round and reactive to light, Extraocular movements are intact, Normal conjunctiva. Neck: Supple, Non-tender, No carotid bruit, No jugular venous distention, No lymphadenopathy, No thyromegaly. Carotid pulse: Bilaterally, Strong. Respiratory: Lungs are clear to auscultation, Respirations are non-labored, Breath sounds are equal, Symmetrical chest wall expansion. Cardiovascular: Normal rate, Regular rhythm, No murmur, No gallop, Good pulses equal in all extremities, No edema. Gastrointestinal: Soft, Non-tender, Non-distended, No organomegaly. Bowel sounds: All four quadrants, Present, No bruit present. Integumentary (more content not included)... Normal [employer] Tobacco Screening.on 023 Adult depression screening assessment No [facility] Work Phone: Fall risk assessment a) No falls within the last year [facility] Work Phone: Tobacco use status CP b) No [facility] Work Phone: PHQ-2 VITALSon 06-18-2021 Adult depression screening assessment No [facility] Work Phone: Tobacco use status CPHS b) No [facility] Work Phone: Laboratory - Cytologyon 01-08 Cytology report Cyto stain.thin prep Doc (Cvx/Vag) [facility] Work Phone: Tobacco Screening.on 021 Fall risk assessment a) No falls within the last year [facility] Work Phone: Tobacco use status CP b) No [facility] Work Phone: CT CHEST WO CONTRASTon 09-19 CT CHEST WO CONTRAST Patient Name: SILVANA PEREA STUDY: CT CHEST WO CONTRAST; 09/19/2020 8:21 am INDICATION: A 60-year-old female with several pulmonary nodules; CT of the chest was requested for follow-up. COMPARISON: CT of the chest dated 07/02/2020 ACCESSION NUMBER(S): [id number] ORDERING CLINICIAN: ALEAH VILLA TECHNIQUE: Helical data acquisition of the chest was obtained without IV contrast material. Images were reformatted in axial, coronal, and sagittal planes. FINDINGS: LUNGS AND AIRWAYS: The trachea and central airways are patent. There is no endobronchial lesion. There is no focal consolidation, pleural effusion, or pneumothorax. There is mild pleural apical scarring bilaterally. A 0.4 cm pleural based thickening in left lower lobe (axial image 199 of 350) is stable appearance to prior study. A 0.5 cm nodular pleural thickening in the right lower lobe (axial image 182) is stable compared to June of 2020. A 0.4 cm noncalcified nodule in the right lower lobe on axial image 203 is stable to prior exam. A perifissural 0.3 cm nodule in the right middle lobe is stable to prior examination (axial image 133) A 0.3 cm nodule in the left upper lobe on axial image 138 is unchanged from prior exam. No new/suspicious lung lesions are identified. MEDIASTINUM AND JOSE, LOWER NECK AND AXILLA: The visualized thyroid gland is within normal limits. No evidence of thoracic lymphadenopathy by CT criteria. Several subcentimeter mediastinal nodes lymph nodes are stable in appearance to prior exam. Esophagus appears within normal limits as seen. HEART AND VESSELS: The thoracic aorta is of normal course and caliber without vascular calcifications. Main pulmonary artery and its branches are normal in caliber. Minimal coronary artery calcifications are seen. The study is not optimized for evaluation of coronary arteries. The cardiac chambers are not enlarged. No evidence of pericardial effusion. UPPER ABDOMEN: The visualized subdiaphragmatic structures demonstrate no remarkable findings. CHEST WALL AND OSSEOUS STRUCTURES: There are no suspicious osseous lesions. Soft tissues the chest wall are unremarkable in appearance. IMPRESSION: 1. Redemonstration of several noncalcified pulmonary nodules in the lungs bilaterally, largest measuring up to 0.5 cm in the right lower lobe, unchanged in appearance compared to June of 2020. No new/suspicious lung lesions are present. 2. Several subcentimeter mediastinal lymph nodes are stable in appearance to prior examination. I personally reviewed the images/study and Dr. Daugherty's interpretation and I agree with the findings as stated. This study was analyzed and interpreted at [facility], [place], [place]. *Follow-up recommendations according to the Fleischner Society Criteria ([place] SchillingMahon et al., Guidelines for management of incidental pulmonary nodules detected on CT images: From the Fleischner Society 2017, DOI: http://dx.doi.org/10.114 8/radiol.7212026431.) Dimensions are average of long and short axis, rounded to the nearest millimeter. Consider all relevant risk factors. SOLID NODULES: SINGLE NODULE: Low Risk: < 6 mm No routine follow-up 6-[address] at 6-12 months, then consider CT at 18-24 months > [address] at 3 months, PET/CT, or tissue sampling Nodules <6 mm do not require routine follow-up, but certain patients at high risk with suspicious nodule morphology, upper lobe location, or both may warrant 12-month follow-up (recommendation 1A). High risk: < [address] at 12 months 6-[address] at 6-12 months, then CT at 18-24 months > [address] at 3 months, PET/CT, or tissue sampling Nodules < 6 mm do not require routine follow-up, but certain patients at high risk with suspicious nodule morphology, upper lobe location, or both may warrant 12-month follow-up (recommendation 1A). MULTIPLE NODULES: Low risk: < 6 mm No routine follow-up 6-[address] at 3-6 months, then consider CT at 18-24 months > [address] at 3-6 months, then consider CT at 18-24 months Use most suspicious nodule as guide to management. Follow-up intervals may vary according to size and risk (recommendation 2A). High risk: < [address] at 12 months 6-[address] at 3-6 months, then at 18-24 months > [address] at 3-6 months, then at 18-24 months Use most suspicious nodule as guide to management. Follow-up intervals may vary according to size and risk (recommendation 2A). Electronically signed by: BEATRIZ MCMILLAN MD [facility] CT CHEST W CONTRASTon 2020 CT CHEST W CONTRAST Patient Name: SILVANA PEREA STUDY: CT CHEST W CONTRAST; 07/02/2020 2:37 pm INDICATION: lung nodules noted on Coronary artery calcium screen. COMPARISON: No prior examination available for comparison. If a prior examination becomes available, this examination will be compared to the prior study. Addendum report will be issued. ACCESSION NUMBER(S): [id number] ORDERING CLINICIAN: ALEAH VILLA TECHNIQUE: Helical data acquisition of the chest was obtained without IV contrast material. Images were reformatted in axial, coronal, and sagittal planes. FINDINGS: Prominent pericardial reflection. Heart size is normal. Small right hilar lymph node axial image 23 measuring 9 mm in size. Miniscule pleural tags left lung, statistically benign. 4 mm nodule left lung axial image 25 probably a noncalcified granuloma. 3 mm nodule right lung base axial image 38 posterior basilar segment appears noncalcified. Small pleural tag 4 mm in size right posterior chest axial image 34. Limited view of the upper abdomen shows no abnormality. IMPRESSION: 1. No acute cardiopulmonary process. Small pulmonary nodules presumably noncalcified granulomas. Recommend follow-up based on on Tanner criteria Electronically signed by: AUSTIN CARVER MD Normal [facility] CREATININEon 07-01-2020 Creatinine [Mass/Vol] 0.60 mg/dL Normal 0.50 - 1.05 [facility] Comment on above: Performed By: #### C REAT #### [place] [address] GFR- AM. >60 Normal >60 [facility] Comment on above: Result Comment: CALC ULATIONS OF ESTIMATED GFR ARE PERFORMED USING THE MDRD STUDY EQUATION FOR THE IDMS-TRACEABLE CREATININE METHODS. CLIN CHEM 2007;53:766-72 Performed By: #### C REAT #### [place] [address] GFR-NON AM. >60 Normal >60 [facility] Comment on above: Performed By: #### C REAT #### [place] [id number] UREA NITROGENon 07-01-2020 Urea nitrogen [Mass/Vol] 15 mg/dL Normal 6 - 23 [facility] Comment on above: Performed By: #### U CASSIUS #### [place] [id number] CT CARDIAC SCORINGon 06-[address] CARDIAC SCORING Patient Name: SILVANA PEREA STUDY: CT CARDIAC SCORING; 06/27/2020 9:43 am INDICATION: SCREENING FOR CARDIOVASCULAR DISORDERS. COMPARISON: None. ACCESSION NUMBER(S): [id number] ORDERING CLINICIAN: ALEAH VILLA TECHNIQUE: Using prospective ECG gating, limited CT scan of the coronary arteries was performed without intravenous contrast. Coronary calcium scoring was performed according to the method of Agatston. FINDINGS: The score and distribution of calcium in the coronary arteries is as follows: LM: 0. LAD: 31. LCx: 0. RCA: 0. Total: 31. The visualized segments of the lungs are normally expanded. 4 mm anterior right lung nodule image 11. 4-5 mm pleural-based medial right lower lobe nodule image 23. Mild bibasilar atelectasis. 3-4 mm right lower lobe nodule image 9. Few additional small nodular densities posteriorly on the right up to 3 mm. 4 mm left lower lobe nodule image 31 and 3-4 mm posterior left lower lobe nodule image 27. The visualized mid/lower ascending thoracic aorta measures 2.5 cm in diameter. The heart is borderline enlarged. Trace pericardial effusion. Mildly prominent nonspecific paratracheal nodes up to 6 mm short axis. Small hiatal hernia. IMPRESSION: 1. Coronary artery calcium score of 31 *. 2. Several subcentimeter lung nodules as described for which follow-up to ensure stability recommended. Suggest dedicated complete CT chest for further assessment and detection of possible additional nodules. 3. Additional findings as above. *Coronary artery calcium scoring may be helpful in predicting the risk for future coronary heart disease events. According to the [place] [employer] Clinical Expert Consensus Task Force, such testing provides important prognostic information in patients with more than one coronary heart disease risk factor. The coronary artery calcium score correlates with the annual risk of a non-fatal myocardial infarction or coronary heart disease . Coronary artery score Annual Risk 0-99 0.4% 100-399 1.3% >400 2.4% These three breakpoints correspond to lower, intermediate and high risk states for future coronary events. Such information should be used, along with appropriate clinical judgment, to make decisions regarding the intensity of risk factor management strategies to treat blood lipids and to modify other non-lipid coronary risk factors. Reference: Torres P et al. Circulation. 2007; 115:402-426 Electronically signed by: ANAIS IBARRA, DO Normal [facility] Mamm - Screening Mammogram w / Tomosynthesison 12-19-2019 MG Breast screening [email or web address] click on the link to view the study images Normal [facility] Work Phone: MA Mamm Screen w/CAD if perf and 3D Bilon 12-21-2018 Bilirubin.direct [Mass/Vol] Exam Date/Time: 12/14/2018 09:42 EDT Reason for Exam: SCREENING 3D/NASRA OSTEOPOROSIS;Screening Report STUDY: [place] Mamm Screen w/CAD if perf and 3D Bong; 12/14/2018 9:42 am ACCESSION NUMBER(S): [id number] ORDERING CLINICIAN: Aleah Villa INDICATION: Screening. COMPARISON: 09/16/2017 and 10/28/2016 FINDINGS: 2D and tomosynthesis images were reviewed at 1 mm slice thickness. The breast tissue is extremely dense, which may limit the sensitivity of mammography. No suspicious masses or calcifications are identified. CAD was utilized. IMPRESSION: No mammographic evidence of malignancy. BI-RADS CATEGORY: Category: 2 - Benign Finding. Recommendation: Normal Interval Follow-up, Over Age 40. Recall Interval: 12 Months. Breast Density: Dense. For any future breast imaging appointments, please call [phone]). FINAL REPORT Dictated: 12/21/2018 4:22 pm Damon Ibarra MD Signed (Electronic Signature): 12/21/2018 4:22 pm Signed by: Damon Ibarra MD Technologist: MANUEL Assessment: BI-RADS Category 2-Benign finding Recommendation: Normal interval follow-up Normal [facility] BD Bone Density DEXAon 12-14 BD Bone Density DEXA Exam Date/Time: 12/14/2018 09:23 EDT Reason for Exam: SCREENING 3D/NASRA OSTEOPOROSIS;Osteoporosi s Report STUDY: BD Bone Density DEXA; 12/14/2018 9:23 am INDICATION: Osteoporosis. Evaluate for osteopenia/osteoporosis, ACCESSION NUMBER(S): [id number] ORDERING CLINICIAN: Aleah Villa FINDINGS: Standard measurements were obtained utilizing an [employer] Energy X-ray Absorptiometry bone densitometer. Data obtained includes planar bone density measurements over the left hip and lumbar spine. Comparison of measured data and standardized mean data for a young adult population (when peak bone mass occurs) results in a T score. This represents the number of standard deviations above or below the mean of a young adult population. Comparison of measured data to standards from an age-adjusted population similarly yields a Z score. Left femoral neck Bone density: 0.308 g/cm2 T score: -4.9 Z Score: -3.6 Lumbar Spine (L1-4) Bone density: 0.715 g/cm2 T Score: -3.0 Z Score: -1.6 World Health Organization (WHO) criteria defines normal bone density as that which is less than 1 standard deviation below the mean of a young adult population. Osteopenia is defined as a measured bone density that is between 1 and 2.5 standard deviations below the mean of a young adult population. Osteoporosis is defined as a measured bone density that is greater than or equal to 2.5 standard deviations below the mean of a young adult population. IMPRESSION: According to World Health Organization criteria, bone mineral density of the left femoral neck and lumbar spine is osteoporotic. The patient is at high risk for fracture. Exam Date/Time: 12/14/2018 09:23 EDT Report Left total hip bone mineral density has decreased 20.6 % when compared to the prior study of 12/16/2015. Lumbar spine bone mineral density has decreased 7.0 % when compared to the prior study. FINAL REPORT Dictated: 12/14/2018 11:22 am Jerod Poe MD Signed (Electronic Signature): 12/14/2018 11:22 am Signed by: Jerod Poe MD Technologist: MANUEL Normal [facility] IGP W/hpv Rfx [id number] 12-01 Diagnosis: See Ref Lab Report Normal [facility] Comment on above: Performed By: #### 1 [id number] #### [employer] [address] [place] [address] Lipid Profileon 04-13-2018 Cholesterol [Mass/Vol] 177 mg/dL Normal 0-199 [facility] Comment on above: Result Comment: TOTA L CHOLEESTEROL: <200 NORMAL 200 - 239 BORDERLINE HIGH >240 HIGH Performed By: #### 3 [id number] #### [employer] [facility] [place] [address] Cholesterol in HDL [Mass/Vol] 63 mg/dL High 40-60 [facility] Comment on above: Performed By: #### 3 [id number] #### [employer] [address] [place] [address] Cholesterol in LDL [Mass/Vol] 100 mg/dL Normal 0-130 [facility] Comment on above: Result Comment: <100 OPTIMAL 100-129 NEAR / ABOVE OPTIMAL 130-159 BORDERLINE HIGH 160-189 HIGH >190 VERY HIGH CALC LDL NOT VALID WHEN TRIGLYCERIDE IS >400 MG/DL Performed By: #### 3 [id number] #### [employer] [address] [place] [address] Cholesterol in VLDL [Mass/Vol] 14 mg/dL Normal 0-40 [facility] Comment on above: Performed By: #### 3 [id number] #### [employer] [address] [place] [address] Triglyceride [Mass/Vol] 68 mg/dL Normal 0-149 [facility] Comment on above: Result Comment: AGE DESIRABLE BORDERLINE HIGH 91 D - 9 Y 0 - 74 75 - 99 > 100 10 - 19 Y 0 - 89 90 - 129 > 130 20 -24 Y 0 - 114 115 - 149 > 150 > 25 0 - 149 150 - 199 200 - 499 Performed By: #### 3 [id number] #### [employer] [address] [place] [address] TSHon 04-13-2018 TSH Qn 3.05 mcIU/mL Normal 0.30-5.60 [facility] Comment on above: Performed By: #### 2 [id number] #### [employer] [address] [place] [address] Auto Diffon 01-02-2018 Basophils (Bld) [#/Vol] 0.0 E3/mcL Normal 0.0-0.2 [facility] Comment on above: Order Comment: Order Added by Discern Expert. Performed By: #### 2 [id number] #### [employer] [address] [place] [address] Basophils/100 WBC (Bld) 0.6 % Normal 0.0-2.0 [facility] Comment on above: Order Comment: Order Added by Discern Expert. Performed By: #### 2 [id number] #### [employer] [address] [place] [address] Eos Absolute 0.0 E3/mcL Normal 0.0-0.7 [facility] Comment on above: Order Comment: Order Added by Discern Expert. Performed By: #### 2 [id number] #### [employer] [address] [place] [address] Eosinophils/100 WBC (Bld) 0.8 % Normal 0.0-11.0 [facility] Comment on above: Order Comment: Order Added by Discern Expert. Performed By: #### 2 [id number] #### [employer] [address] [place] [address] Lymphocytes (Bld) [#/Vol] 2.0 E3/mcL Normal 1.2-3.4 [facility] Comment on above: Order Comment: Order Added by Discern Expert. Performed By: #### 2 [id number] #### [employer] [address] [place], [place] [address] Lymphocytes/100 WBC (Bld) 35.9 % Normal 20.0-55.0 [facility] Comment on above: Order Comment: Order Added by Discern Expert. Performed By: #### 2 [id number] #### [employer] [address] [place], [place] [address] Towner Absolute 0.5 E3/mcL Normal 0.0-0.7 [facility] Comment on above: Order Comment: Order Added by Discern Expert. Performed By: #### 2 [id number] #### [employer] [address] [place], [place] [address] Monocytes/100 WBC (Bld) 8.4 % Normal 0.0-10.0 [facility] Comment on above: Order Comment: Order Added by Discern Expert. Performed By: #### 2 [id number] #### [employer] [address] [place], [place] [address] Neutro Absolute 3.0 E3/mcL Normal 1.4-6.5 [facility] Comment on above: Order Comment: Order Added by Discern Expert. Performed By: #### 2 [id number] #### [employer] [address] [place], [place] [address] Neutro Auto 54.3 % Normal 37.0-75.0 [facility] Comment on above: Order Comment: Order Added by Discern Expert. Performed By: #### 2 [id number] #### [employer] [address] [place], [place] [id number] Bili Directon 01-02-2018 Bili Direct .10 mg/dL Normal .00-.20 [facility] Comment on above: Performed By: #### 2 [id number] #### [employer] [address] [place] [address] CBC w/ Auto Diffon Erythrocyte distribution width (RBC) [Ratio] 13.7 % Normal 11.5-14.5 [facility] Comment on above: Performed By: #### 2 [id number] #### [employer] [address] [place] [address] Hematocrit (Bld) [Volume fraction] 39.7 % Normal 36.0-48.0 [facility] Comment on above: Performed By: #### 2 [id number] #### [employer]O [employer] [address] [place] [address] Hemoglobin (Bld) [Mass/Vol] 13.1 g/dL Normal 12.0-16.0 [facility] Comment on above: Performed By: #### 2 [id number] #### YO [employer] [facility] [place] [address] MCH (RBC) [Entitic mass] 29.9 pg Normal 27.0-31.0 [facility] Comment on above: Performed By: #### 2 [id number] #### [employer] [address] [place] [address] MCHC (RBC) [Mass/Vol] 32.9 g/dL Low 33.0-37.0 [facility] Comment on above: Performed By: #### 2 [id number] #### [facility] [address] [place] [address] MCV (RBC) [Entitic vol] 90.8 fL Normal 78.0-100.0 [facility] Comment on above: Performed By: #### 2 [id number] #### [facility] [address] [place] [address] Platelet mean volume (Bld) [Entitic vol] 8.7 fL Normal 7.4-11.0 [facility] Comment on above: Performed By: #### 2 [id number] #### [facility] [address] [place] [address] Platelets (Bld) [#/Vol] 224 E3/mcL Normal 130-400 [facility] Comment on above: Performed By: #### 2 [id number] #### [facility] [address] [place] [address] RBC (Bld) [#/Vol] 4.37 E6/mcL Normal 3.90-5.40 [facility] Comment on above: Performed By: #### 2 [id number] #### [facility] [address] [place] [address] WBC (Bld) [#/Vol] 5.5 E3/mcL Normal 3.6-11.0 [facility] Comment on above: Performed By: #### 2 [id number] #### [facility]O [facility] [address] [place] [address] CMPon 01-02-2018 Albumin [Mass/Vol] 4.4 g/dL Normal 3.2-5.0 [facility] Comment on above: Performed By: #### 2 [id number] #### [facility] [employer] [address] [place] [address] Albumin/Globulin [Mass ratio] 1.4 {ratio} Normal 1.1-1.9 [facility] Comment on above: Performed By: #### 2 [id number] #### [facility] [address] [place] [address] Alk Phos 55 Int._Unit/L Normal 42-121 [facility] Comment on above: Performed By: #### 2 [id number] #### [facility] [address] [place] [address] ALT [Catalytic activity/Vol] 19 Int._Unit/L Normal 10-40 [facility] Comment on above: Performed By: #### 2 [id number] #### [facility] [address] [place] [address] AST [Catalytic activity/Vol] 27 Int._Unit/L Normal 10-42 [facility] Comment on above: Performed By: #### 2 [id number] #### [facility] [address] [place] [address] Bili Total 1.1 mg/dL High 0.2-1.0 [facility] Comment on above: Performed By: #### 2 [id number] #### [facility] [address] [place] [address] Calcium [Mass/Vol] 10.0 mg/dL Normal 8.4-10.2 [facility] Comment on above: Performed By: #### 2 [id number] #### [facility] [address] [place] [address] Chloride [Moles/Vol] 104 mmol/L Normal 98-107 [facility] Comment on above: Performed By: #### 2 [id number] #### [facility] [address] [place] [address] CO2 [Moles/Vol] 29.8 mmol/L Normal 24.0-30.[address] [facility] Comment on above: Performed By: #### 2 [id number] #### [facility] [address] [place] [address] Creatinine [Mass/Vol] 0.6 mg/dL Normal 0.6-1.3 [facility] Comment on above: Performed By: #### 2 [id number] #### [facility] [address] [place] [address] Globulin (S) [Mass/Vol] 3.1 g/dL Normal 2.0-4.0 [facility] Comment on above: Performed By: #### 2 [id number] #### [facility] [address] [place] [address] Glucose [Mass/Vol] 94 mg/dL Normal 70-99 [facility] Comment on above: Performed By: #### 2 [id number] #### [facility] [address] [place] [address] Potassium [Moles/Vol] 4.0 mmol/L Normal 3.5-5.1 [facility] Comment on above: Performed By: #### 2 [id number] #### [facility] [address] [place] [address] Protein [Mass/Vol] 7.5 g/dL Normal 6.4-8.3 [facility] Comment on above: Performed By: #### 2 [id number] #### [facility] [address] [place] [address] Sodium [Moles/Vol] 144 mmol/L Normal 136-145 [facility] Comment on above: Performed By: #### 2 [id number] #### [facility] [employer] [address] [place] [address] Urea nitrogen [Mass/Vol] 13 mg/dL Normal 7-18 [facility] Comment on above: Performed By: #### 2 [id number] #### [facility] [employer] [address] [place] [address] Urea nitrogen/Creatinin e [Mass ratio] 21.7 ratio Normal 5.4-30.0 [facility] Comment on above: Performed By: #### 2 [id number] #### [facility] [employer] [address] [place] [address] UA Completeon 01-02-2018 Color (U) Yellow Normal Yellow [facility] Comment on above: Performed By: #### 8 [id number] #### YO Urinalysis Automated Subsection [address] [place] [address] Glucose (U) [Mass/Vol] Negative Normal Negative [facility] Comment on above: Performed By: #### 8 [id number] #### YO Urinal[facility] Automated Subsection [address] [place], [place] [id number] Ketones Ql (U) Negative Normal Negative [facility] Comment on above: Performed By: #### 8 [id number] #### YO Urinal[facility] Autom[facility] Subsection [address] [place] [address] RBC (U) [#/Vol] 0-3 Normal 0-3 [facility] Comment on above: Performed By: #### 8 [id number] #### YO Urinal[facility]section [address] [place] [address] UA Blood Negative Normal Negative [facility] Comment on above: Performed By: #### 8 [id number] #### YO [facility]section [address] [place] [address] UA Clarity Clear Normal Clear [facility] Comment on above: Performed By: #### 8 [id number] #### YO [facility]inal[facility]section [address] [place] [address] UA Hyal Cast 0-2 Normal 0-2 [facility] Comment on above: Performed By: #### 8 [id number] #### YO Urinal[facility]section [address] [place] [address] UA Leuk Est 2+ Abnormal Negative [facility] Comment on above: Performed By: #### 8 [id number] #### YO Urinalysis [facility]section [address] [place] [address] UA Mucous Trace Abnormal Trace [facility] Comment on above: Performed By: #### 8 [id number] #### YO Urinal[facility]section [address] [place] [address] UA Nitrite Negative Normal Negative [facility] Comment on above: Performed By: #### 8 [id number] #### YO Urinalysis Automated [facility]section [address] [place] [address] UA pH 6.0 Normal 4.6-8.0 [facility] Comment on above: Performed By: #### 8 [id number] #### YO Urinalysis Automated [facility]section [address] [place] [address] UA Protein Negative Normal Negative [facility] Comment on above: Performed By: #### 8 [id number] #### YO Urinalysis Automated Subsection [address] [place] [address] UA Spec Grav 1.015 Normal 1.003-1.030 [facility] Comment on above: Performed By: #### 8 [id number] #### YO Urinalysis Automated Subsection [address] [place] [address] UA Squam Epithelial 0-5 Normal 0-5 [facility] Comment on above: Performed By: #### 8 [id number] #### YO Urinalysis Automated [facility]section [address] [place] [address] UA Transitional Epithelial 0-2 Normal 0-2 [facility] Comment on above: Performed By: #### 8 [id number] #### YO Urinalysis Automated [facility]section [address] [place] [address] UA Urobilinogen Negative Normal [facility] Comment on above: Performed By: #### 8 [id number] #### YO Urinalysis Automated [facility]section [address] [place] [address] UA WBC 10-20 Abnormal 0-5 [facility] Comment on above: Performed By: #### 8 [id number] #### YO Urinalysis Automated Subsection [address] [place] [address] Urobilinogen Qn (U) Negative Normal Negative [facility] Comment on above: Performed By: #### 8 [id number] #### YO Urinal[facility]ated [facility]section [address] [place] [address] eGFRon 01-02-2018 GFR/1.73 sq M predicted among non-blacks MDRD (S/P/Bld) [Vol rate/Area] mL/min/{1.73_m2} Normal [facility] Comment on above: Order Comment: Order added by Discern Expert. Performed By: #### 1 [id number] #### [facility] [address] [place] [address] Vital Signs Date Time Vital Sign Value Performing Clinician Facility 09-21-2024 09:41-0400 Body height 153.7 cm Guicho Davey APRN-FIELD COORDINATOR Work Phone: [facility] 09-21-2024 09:41-0400 Body mass index (BMI) [Ratio] 17.1 kg/m2 Guicho Davey APRN-FIELD COORDINATOR Work Phone: [facility] 09-21-2024 09:41-0400 Body temperature 98.49 [degF] Guicho Davey APRN-FIELD COORDINATOR Work Phone: [facility] 09-21-2024 09:41-0400 Body weight 40.37 kg Guicho Davey APRN-FIELD COORDINATOR Work Phone: [facility] 09-21-2024 09:41-0400 Diastolic blood pressure 76 mm[Hg] Guicho Davey APRN-FIELD COORDINATOR Work Phone: [facility] 09-21-2024 09:41-0400 Heart rate 115 /min Guicho Davey APRN-FIELD COORDINATOR Work Phone: [facility] 09-21-2024 09:41-0400 SaO2% (BldA) [Mass fraction] 99 % Guicho Davey APRN-FIELD COORDINATOR Work Phone: [facility] 09-21-2024 09:41-0400 Systolic blood pressure 150 mm[Hg] Guicho Davey REINFORCED CONCRETE INSPECTOR-FIELD COORDINATOR Work Phone: [facility] 07-20-2024 09:29-0400 Body mass index (BMI) [Ratio] 17.27 kg/m2 Zara Santa MD Work Phone: [facility] 07-20-2024 09:29-0400 Body weight 40.78 kg Zara Santa MD Work Phone: [facility] 07-20-2024 09:29-0400 Diastolic blood pressure 70 mm[Hg] Zara Santa MD Work Phone: [facility] 07-20-2024 09:29-0400 Heart rate 92 /min Zara Santa MD Work Phone: [facility] 07-20-2024 09:29-0400 SaO2% (BldA) [Mass fraction] 99 % Zara Santa MD Work Phone: [facility] 07-20-2024 09:29-0400 Systolic blood pressure 110 mm[Hg] Zara Santa MD Work Phone: [facility] 05-30-2024 14:04-0500 Body height 153.7 cm Miguel A High REINFORCED CONCRETE INSPECTOR-FIELD COORDINATOR Work Phone: [facility] 05-30-2024 14:04-0500 Body mass index (BMI) [Ratio] 16.67 kg/m2 Miguel A High REINFORCED CONCRETE INSPECTOR-FIELD COORDINATOR Work Phone: [facility] 05-30-2024 14:04-0500 Body weight 39.37 kg Miguel A High REINFORCED CONCRETE INSPECTOR-FIELD COORDINATOR Work Phone: [facility] 05-30-2024 14:04-0500 Diastolic blood pressure 78 mm[Hg] Miguel A High REINFORCED CONCRETE INSPECTOR-FIELD COORDINATOR Work Phone: [facility] 05-30-2024 14:04-0500 Heart rate 87 /min Miguel A High REINFORCED CONCRETE INSPECTOR-FIELD COORDINATOR Work Phone: [facility] 05-30-2024 14:04-0500 SaO2% (BldA) [Mass fraction] 97 % Miguel A High REINFORCED CONCRETE INSPECTOR-FIELD COORDINATOR Work Phone: [facility] 05-30-2024 14:04-0500 Systolic blood pressure 130 mm[Hg] Miguel A High REINFORCED CONCRETE INSPECTOR-FIELD COORDINATOR Work Phone: [facility] 04-26-2024 10:21-0500 Body mass index (BMI) [Ratio] 16.53 kg/m2 Aleah Villa MD Work Phone: [facility] 04-26-2024 10:21-0500 Body weight 39.04 kg Aleah Villa MD Work Phone: [facility] 04-26-2024 10:21-0500 Diastolic blood pressure 62 mm[Hg] Aleah Villa MD Work Phone: [facility] 04-26-2024 10:21-0500 Heart rate 112 /min Aleah Villa MD Work Phone: [facility] 04-26-2024 10:21-0500 SaO2% (BldA) [Mass fraction] 96 % Aleah Villa MD Work Phone: [facility] 04-26-2024 10:21-0500 Systolic blood pressure 126 mm[Hg] Aleah Villa MD Work Phone: [facility] 04-12-2024 13:21-0500 Body mass index (BMI) [Ratio] 16.52 kg/m2 Aleah Villa MD Work Phone: [facility] 04-12-2024 13:21-0500 Body weight 39.01 kg Aleah Villa MD Work Phone: [facility] 04-12-2024 13:21-0500 Diastolic blood pressure 76 mm[Hg] Aleah Villa MD Work Phone: [facility] 04-12-2024 13:21-0500 Heart rate 96 /min Aleah Villa MD Work Phone: [phone] [place] [address] 04-12-2024 13:21-0500 SaO2% (BldA) [Mass fraction] 98 % Aleah Villa MD Work Phone: [facility] 04-12-2024 13:21-0500 Systolic blood pressure 124 mm[Hg] Aleah Villa MD Work Phone: [facility] 03-26-2024 14:54-0500 Body mass index (BMI) [Ratio] 16.63 kg/m2 Aleah Villa MD Work Phone: [facility] 03-26-2024 14:54-0500 Body weight 39.26 kg Aleah Villa MD Work Phone: [phone] [place] [address] 03-26-2024 14:54-0500 Diastolic blood pressure 78 mm[Hg] Aleah Villa MD Work Phone: 5([phone])[phone] [place] [address] 03-26-2024 14:54-0500 Heart rate 81 /min Aleah Villa MD Work Phone: [facility] 03-26-2024 14:54-0500 SaO2% (BldA) [Mass fraction] 93 % Aleah Villa MD Work Phone: [facility] 03-26-2024 14:54-0500 Systolic blood pressure 136 mm[Hg] Aleah Villa MD Work Phone: [facility] 03-08-2024 14:28-0400 Body mass index (BMI) [Ratio] 16.78 kg/m2 Aleah Villa MD Work Phone: [facility] 03-08-2024 14:28-0400 Body weight 39.63 kg Aleah Villa MD Work Phone: [facility] 03-08-2024 14:28-0400 Diastolic blood pressure 80 mm[Hg] Aleah Villa MD Work Phone: [facility] 03-08-2024 14:28-0400 Heart rate 116 /min Aleah Villa MD Work Phone: [facility] 03-08-2024 14:28-0400 SaO2% (BldA) [Mass fraction] 97 % Aleah Villa MD Work Phone: [facility] 03-08-2024 14:28-0400 Systolic blood pressure 146 mm[Hg] Aleah Villa MD Work Phone: [facility] 02-22-2024 09:57-0400 Body mass index (BMI) [Ratio] 16.9 kg/m2 Aleah Villa MD Work Phone: [facility] 02-22-2024 09:57-0400 Body weight 39.92 kg Aleah Villa MD Work Phone: [facility] 02-22-2024 09:57-0400 Diastolic blood pressure 70 mm[Hg] Aleah Villa MD Work Phone: [facility] 02-22-2024 09:57-0400 Heart rate 83 /min Aleah Villa MD Work Phone: [facility] 02-22-2024 09:57-0400 SaO2% (BldA) [Mass fraction] 95 % Aleah Villa MD Work Phone: [facility] 02-22-2024 09:57-0400 Systolic blood pressure 112 mm[Hg] Aleah Villa MD Work Phone: [facility] 01-23-2024 09:29-0400 Body mass index (BMI) [Ratio] 17.19 kg/m2 Aleah Villa MD Work Phone: [facility] 01-23-2024 09:29-0400 Body weight 40.6 kg Aleah Villa MD Work Phone: [facility] 01-23-2024 09:29-0400 Diastolic blood pressure 72 mm[Hg] Aleah Villa MD Work Phone: [facility] 01-23-2024 09:29-0400 Heart rate 90 /min Aleah Villa MD Work Phone: [facility] 01-23-2024 09:29-0400 SaO2% (BldA) [Mass fraction] 97 % Aleah Villa MD Work Phone: [facility] 01-23-2024 09:29-0400 Systolic blood pressure 130 mm[Hg] Aleah Villa MD Work Phone: [facility] 12-30-2023 10:30-0400 Body mass index (BMI) [Ratio] 17.36 kg/m2 Aleah Villa MD Work Phone: [facility] 12-30-2023 10:30-0400 Body weight 40.99 kg Aleah Villa MD Work Phone: [facility] 12-30-2023 10:30-0400 Diastolic blood pressure 80 mm[Hg] Aleah Villa MD Work Phone: [facility] 12-30-2023 10:30-0400 Heart rate 77 /min Aleah Villa MD Work Phone: [facility] 12-30-2023 10:30-0400 SaO2% (BldA) [Mass fraction] 98 % Aleah Villa MD Work Phone: [facility] 12-30-2023 10:30-0400 Systolic blood pressure 134 mm[Hg] Aleah Villa MD Work Phone: [facility] 11-23-2023 09:26-0400 Body height 153.7 cm Aleah Villa MD Work Phone: [facility] 11-23-2023 09:26-0400 Body mass index (BMI) [Ratio] 18.16 kg/m2 Aleah Villa MD Work Phone: [facility] 11-23-2023 09:26-0400 Body weight 42.89 kg Aleah Villa MD Work Phone: [facility] 11-23-2023 09:26-0400 Diastolic blood pressure 90 mm[Hg] Aleah Villa MD Work Phone: [facility] 11-23-2023 09:26-0400 Heart rate 86 /min Aleah Villa MD Work Phone: [facility] 11-23-2023 09:26-0400 SaO2% (BldA) [Mass fraction] 99 % Aleah Villa MD Work Phone: [facility] 11-23-2023 09:26-0400 Systolic blood pressure 138 mm[Hg] Aleah Villa MD Work Phone: [facility] 07-11-2023 09:51-0500 Body height 157.5 cm Aleah Villa MD Work Phone: [facility] 07-11-2023 09:51-0500 Body mass index (BMI) [Ratio] 18.29 kg/m2 Aleah Villa MD Work Phone: [facility] 07-11-2023 09:51-0500 Body weight 45.36 kg Aleah Villa MD Work Phone: [facility] 07-11-2023 09:51-0500 Diastolic blood pressure 70 mm[Hg] Aleah Villa MD Work Phone: [facility] 07-11-2023 09:51-0500 Heart rate 72 /min Aleah Villa MD Work Phone: [facility] 07-11-2023 09:51-0500 SaO2% (BldA) [Mass fraction] 99 % Aleah Villa MD Work Phone: [facility] 07-11-2023 09:51-0500 Systolic blood pressure 116 mm[Hg] Aleah Villa MD Work Phone: [facility] 01-25-2023 10:02-0400 Body height 156.2 cm Silvana Landry REINFORCED CONCRETE INSPECTOR-FIELD COORDINATOR Work Phone: [facility] 01-25-2023 10:02-0400 Body mass index (BMI) [Ratio] 18.44 kg/m2 Silvana Mancilla REINFORCED CONCRETE INSPECTOR-FIELD COORDINATOR Work Phone: [facility] 01-25-2023 10:02-0400 Body weight 45 kg Silvana Mancilla REINFORCED CONCRETE INSPECTOR-FIELD COORDINATOR Work Phone: [facility] 01-25-2023 10:02-0400 Diastolic blood pressure 70 mm[Hg] Silvana Mancilla REINFORCED CONCRETE INSPECTOR-FIELD COORDINATOR Work Phone: [facility] 01-25-2023 10:02-0400 Heart rate 81 /min Silvana Mancilla REINFORCED CONCRETE INSPECTOR-FIELD COORDINATOR Work Phone: [facility] 01-25-2023 10:02-0400 SaO2% (BldA) [Mass fraction] 98 % Silvana Mancilla REINFORCED CONCRETE INSPECTOR-FIELD COORDINATOR Work Phone: [facility] 01-25-2023 10:02-0400 Systolic blood pressure 100 mm[Hg] Silvana Mancilla REINFORCED CONCRETE INSPECTOR-FIELD COORDINATOR Work Phone: [facility] 12-07-2022 09:08-0400 Body height 156.2 cm Zara Santa MD Work Phone: [facility] 12-07-2022 09:08-0400 Body mass index (BMI) [Ratio] 18.55 kg/m2 Zara Santa MD Work Phone: [facility] 12-07-2022 09:08-0400 Body weight 45.27 kg Zara Santa MD Work Phone: [facility] 12-07-2022 09:08-0400 Diastolic blood pressure 70 mm[Hg] Zara Santa MD Work Phone: [facility] 12-07-2022 09:08-0400 Heart rate 67 /min Zara Santa MD Work Phone: [facility] 12-07-2022 09:08-0400 SaO2% (BldA) [Mass fraction] 97 % Zara Santa MD Work Phone: [facility] 12-07-2022 09:08-0400 Systolic blood pressure 128 mm[Hg] Zara Santa MD Work Phone: [facility] 06-17-2022 09:38-0500 Body height 156.21 cm Aleah O Villa Work Phone: [facility] Work Phone: 06-17-2022 09:38-0500 Body mass index (BMI) [Ratio] 18.22 kg/m2 Aleah O Villa Work Phone: [facility] Work Phone: 06-17-2022 09:38-0500 Body surface area Derived from formula 1.4 m2 Aleah O Villa Work Phone: [facility] Work Phone: 06-17-2022 09:38-0500 Body weight 44.45 kg Aleah O Villa Work Phone: [facility] Work Phone: 06-17-2022 09:38-0500 Diastolic blood pressure 72 mm[Hg] Aleah O Villa Work Phone: [facility] Work Phone: 06-17-2022 09:38-0500 Heart rate 76 /min Aleah O Villa Work Phone: [facility] Work Phone: 06-17-2022 09:38-0500 Systolic blood pressure 118 mm[Hg] Aleah O Villa Work Phone: [facility] Work Phone: 06-18-2021 08:40-0500 Body height 154.94 cm Aleah O Villa Work Phone: [facility] Work Phone: 06-18-2021 08:40-0500 Body mass index (BMI) [Ratio] 18.71 kg/m2 Aleah O Villa Work Phone: [facility] Work Phone: 06-18-2021 08:40-0500 Body surface area Derived from formula 1.4 m2 Aleah O Villa Work Phone: [facility] Work Phone: 06-18-2021 08:40-0500 Body weight 44.91 kg Aleah O Villa Work Phone: [facility] Work Phone: 06-18-2021 08:40-0500 Diastolic blood pressure 70 mm[Hg] Aleah O Villa Work Phone: [facility] Work Phone: 06-18-2021 08:40-0500 Heart rate 64 /min Aleah O Villa Work Phone: [facility] Work Phone: 06-18-2021 08:40-0500 Systolic blood pressure 124 mm[Hg] Aleah O Villa Work Phone: [facility] Work Phone: 02-04-2021 09:04-0400 Body height 156.84 cm Aleah O Villa Work Phone: [facility] Work Phone: 02-04-2021 09:04-0400 Body mass index (BMI) [Ratio] 18.29 kg/m2 Aleah O Villa Work Phone: [facility] Work Phone: 02-04-2021 09:04-0400 Body surface area Derived from formula 1.41 m2 Aleah O Villa Work Phone: [facility] Work Phone: 02-04-2021 09:04-0400 Body weight 45 kg Aleah O Villa Work Phone: [facility] Work Phone: 02-04-2021 09:04-0400 Diastolic blood pressure 80 mm[Hg] Aleah O Villa Work Phone: [facility] Work Phone: 02-04-2021 09:04-0400 Heart rate 72 /min Aleah O Villa Work Phone: [facility] Work Phone: 02-04-2021 09:04-0400 Systolic blood pressure 122 mm[Hg] Aleah O Villa Work Phone: [facility] Work Phone: 01-16-2020 12:41-0400 BMI (Body Mass Index) 17.89 kg/m2 Silvana Mancilla [facility] Work Phone: 01-16-2020 12:41-0400 Body weight 44 kg Silvana Mancilla [facility] Work Phone: 01-16-2020 12:41-0400 BP Diastolic 62 mm[Hg] Silvana Mancilla [facility] Work Phone: 01-16-2020 12:41-0400 BP Systolic 110 mm[Hg] Silvana Mancilla [facility] Work Phone: 01-16-2020 12:41-0400 BSA (Body Surface Area) 1.4 m2 Silvana Mancilla [facility] Work Phone: 01-16-2020 12:41-0400 Height 156.84 cm Silvana [facility]ancilla [facility] Work Phone: 01-16-2020 12:41-0400 Pulse (Heart Rate) 64 /min Silvana Mancilla [facility] Work Phone: 01-09-2020 13:01-0400 BMI (Body Mass Index) 17.89 kg/m2 [facility] Work Phone: 01-09-2020 13:01-0400 Body Temperature 96.8 [degF] [facility] Work Phone: 01-09-2020 13:01-0400 Body weight 44 kg [facility] Work Phone: 01-09-2020 13:01-0400 BP Diastolic 70 mm[Hg] Silvana [facility]ancilla [facility] Work Phone: Comment on above: Location: [facility]; 01-09-2020 13:01-0400 BP Systolic 112 mm[Hg] [facility] Work Phone: Comment on above: Location: [facility]; 01-09-2020 13:01-0400 BSA (Body Surface Area) 1.4 m2 [facility]ana [facility] Work Phone: 01-09-2020 13:01-0400 Height 156.84 cm [facility] Work Phone: 01-09-2020 13:01-0400 Pulse (Heart Rate) 68 /min Silvana vega [facility] Work Phone: 07-06-2019 10:36-0500 BMI (Body Mass Index) 17.77 kg/m2 [facility] Work Phone: 07-06-2019 10:36-0500 Body Temperature 97.3 [degF] [facility] Work Phone: Comment on above: Method: Oral 07-06-2019 10:36-0500 Body weight 42.67 kg Silvana Mancilla [facility] Work Phone: 07-06-2019 10:36-0500 BP Diastolic 70 mm[Hg] Silvana [facility]ancilla [facility] Work Phone: Comment on above: Location: [facility]UE; 07-06-2019 10:36-0500 BP Systolic 110 mm[Hg] Silvana [facility]ancilla [facility] Work Phone: Comment on above: Location: [facility]UE; 07-06-2019 10:36-0500 BSA (Body Surface Area) 1.37 m2 Silvana Mancilla [facility] Work Phone: 07-06-2019 10:36-0500 Height 154.94 cm Silvana [facility]ancilla [facility] Work Phone: 07-06-2019 10:36-0500 Pulse (Heart Rate) 76 /min Silvana [facility] Work Phone: Encounters Encounter Date Encounter Type Care Provider Facility Start: 01-23-2025 ambulatory Aleah Andrew Villa Facility :[facility] Start: 09-28-2024 End: 09-28-2024 ambulatory [facility] Start: 09-21-2024 End: 09-21-2024 Patient encounter procedure Guicho Davey REINFORCED CONCRETE INSPECTOR-FIELD COORDINATOR Work Phone: [facility] Comment on above: Dysuria (Primary Dx) Start: 09-21-2024 End: 09-21-2024 ambulatory ZARA SANTA [facility] Start: 07-20-2024 End: 07-20-2024 Assay of hemosiderin, quant Zara Santa MD Work Phone: [facility] Work Phone: Start: 07-20-2024 End: 07-20-2024 Patient encounter procedure Zara Santa MD Work Phone: [facility] Comment on above: Routine general medi juan carlos examination at health care facility (Primary Dx); Osteoporosis, unspecified osteoporosis type, unspecified pathological fracture presence; Hyperlipidemia, unspecified hyperlipidemia type; Lumbar foraminal stenosis; Mixed anxiety depressive disorder; Tachycardia; Encounter for screening mammogram for breast cancer; Menopause Start: 07-20-2024 End: 07-20-2024 ambulatory [facility] Start: 07-20-2024 End: 07-20-2024 Encounter for general adult medical examination without abnormal findings [facility] Start: 05-30-2024 End: 05-30-2024 Office outpatient visit 25 minutes Miguel A High REINFORCED CONCRETE INSPECTOR-FIELD COORDINATOR Work Phone: [facility] Comment on above: Lumbar foraminal delon nosis (Primary Dx); Mixed anxiety depressive disorder; Tachycardia Start: 05-30-2024 End: 05-30-2024 ambulatory MIGUEL A HIGH [facility] Start: 04-26-2024 End: 04-26-2024 ambulatory [facility] Start: 04-26-2024 End: 04-26-2024 Office outpatient visit 15 minutes Aleah Villa MD Work Phone: [facility] Comment on above: Weight loss, non-int entional (Primary Dx); Mixed anxiety depressive disorder; Lumbar foraminal stenosis; Gluteal pain Start: 04-26-2024 End: 04-26-2024 ambulatory [facility] Start: 04-24-2024 End: 04-24-2024 ambulatory [facility] Start: 04-20-2024 End: 04-20-2024 ambulatory [facility] Start: 04-17-2024 End: 04-17-2024 ambulatory [facility] Start: 04-12-2024 End: 04-12-2024 Office outpatient visit 15 minutes Aleah Villa MD Work Phone: [facility] Comment on above: Mixed anxiety depres sive disorder Start: 04-12-2024 End: 04-12-2024 ambulatory [facility] Start: 04-09-2024 End: 04-09-2024 ambulatory [facility] Start: 04-03-2024 End: 04-03-2024 [facility] Start: 03-26-2024 End: 03-26-2024 Office outpatient visit 15 minutes Aleah Villa MD Work Phone: [facility] Comment on above: Gluteal pain (Primar y Dx); Mixed anxiety depressive disorder Start: 03-26-2024 End: 03-26-2024 [facility] Start: 03-26-2024 End: 03-26-2024 [facility] Start: 03-21-2024 End: 03-21-2024 [facility] Start: 03-19-2024 End: 03-19-2024 [facility] Start: 03-15-2024 End: 03-15-2024 [facility] Start: 03-13-2024 End: 03-13-2024 [facility] Start: 03-08-2024 End: 03-08-2024 Office outpatient visit 15 minutes Aleah Villa MD Work Phone: [facility] Comment on above: Protein-calorie maln utrition, unspecified severity (Multi) (Primary Dx); Mixed anxiety depressive disorder; Weight loss, non-intentional Start: 03-08-2024 End: 03-08-2024 [facility] Start: 03-07-2024 End: 03-07-2024 [facility] Start: 02-29-2024 End: 02-29-2024 [facility] Start: 02-22-2024 End: 02-22-2024 Office outpatient visit 25 minutes Aleah Villa MD Work Phone: [facility] Comment on above: Lumbar foraminal delon nosis (Primary Dx); Mixed anxiety depressive disorder; Tachycardia; Dysesthesia Start: 02-22-2024 End: 02-22-2024 ambulatory [facility] Start: 02-15-2024 End: 02-15-2024 ambulatory Juan Garrett Facility:[facility] Start: 01-31-2024 End: 01-31-2024 ambulatory [facility] Start: 01-26-2024 End: 01-26-2024 Subsequent hospital visit by physician Benji Oh 2 [facility] Comment on above: Weight loss, non-int entional Start: 01-26-2024 End: 01-26-2024 ambulatory [facility] Start: 01-23-2024 End: 01-23-2024 Office outpatient visit 25 minutes Aleah Villa MD Work Phone: [facility] Comment on above: Weight loss, non-int entional (Primary Dx); Mixed anxiety depressive disorder; Tachycardia; Gluteal pain Start: 12-30-2023 End: 12-30-2023 ambulatory [facility] Start: 12-30-2023 End: 12-30-2023 Office outpatient visit 25 minutes Aleah Villa MD Work Phone: [facility] Comment on above: Tachycardia (Primary Dx); Mixed anxiety depressive disorder; Blood pressure elevated without history of HTN Start: 12-09-2023 End: 12-09-2023 [facility] Start: 11-23-2023 End: 11-23-2023 [facility] Comment on above: Tachycardia Start: 11-23-2023 End: 11-23-2023 ambulatory [facility] Start: 11-23-2023 End: 11-23-2023 Office outpatient visit 40 minutes Aleah Villa MD Work Phone: [facility] Comment on above: Pulmonary artery abn ormality (HHS-HCC) (Primary Dx); Tachycardia; Sciatica of right side Start: 11-18-2023 End: 11-18-2023 Subsequent hospital visit by physician Benji [facility] Comment on above: Other intervertebral disc displacement, lumbar region Start: 11-18-2023 End: 11-18-2023 ambulatory FARHAT CR [facility] Start: 07-11-2023 End: 07-11-2023 Assay of hemosiderin, quant Aleah Villa MD Work Phone: [facility] Work Phone: Start: 07-11-2023 End: 07-11-2023 Patient encounter procedure Aleah Villa MD Work Phone: [facility] Comment on above: Routine general medi juan carlos examination at health care facility (Primary Dx); Osteoporosis, unspecified osteoporosis type, unspecified pathological fracture presence; Recurrent UTI; Hyperlipidemia, unspecified hyperlipidemia type; Screening mammogram, encounter for Start: 07-08-2023 End: 07-08-2023 ambulatory ALEAH VILLA [facility] Start: 01-25-2023 End: 01-25-2023 Patient encounter status Silvana Jason Mancilla REINFORCED CONCRETE INSPECTOR-FIELD COORDINATOR Work Phone: [facility] Work Phone: Start: 01-25-2023 End: 01-25-2023 Periodic preventive med est patient 40-64yrs Silvana Mancilla REINFORCED CONCRETE INSPECTOR-FIELD COORDINATOR Work Phone: [facility] Comment on above: Encounter for gyneco logical examination (general) (routine) without abnormal findings (Primary Dx); Osteoporosis, unspecified osteoporosis type, unspecified pathological fracture presence; Screening mammogram for breast cancer Start: 01-21-2023 End: 01-21-2023 ambulatory [facility] Work Phone: Start: 01-21-2023 End: 01-21-2023 Patient encounter procedure [facility] Work Phone: Start: 12-07-2022 End: 12-07-2022 Office outpatient visit 15 minutes Zara Santa MD Work Phone: [facility] Comment on above: Dysfunction of left eustachian tube (Primary Dx) Start: 06-17-2022 Office outpatient vi sit 15 minutes Aleah Villa Work Phone: [employer] Work Phone: Start: 06-17-[address] Aleah Villa Facility:[id number] Start: 01-29-2022 End: 01-29-2022 ambulatory [facility] Work Phone: Start: 01-29-2022 End: 01-29-2022 Patient encounter procedure [facility] Start: 06-18-2021 Office outpatient vi sit 25 minutes Aleah Villa Work Phone: [employer] Work Phone: Start: 02-18-2021 Chart Update Aleah Villa Work Phone: [employer] [employer] Work Phone: Start: 02-04-2021 Patient encounter procedure Aleah Villa Work Phone: [employer] Work Phone: Start: 02-04-2021 Periodic preventive med est patient 40-64yrs Aleah Villa Work Phone: [employer] Work Phone: Start: 01-16-2020 Patient encounter procedure Silvana Mancilla [employer] [facility] Work Phone: Start: 01-09-2020 Patient encounter procedure Silvana Mancilla [facility] Work Phone: Start: 07-06-2019 Patient encounter procedure Silvana Mancilla [employer] Work Phone: Evaluation finding Aleah casey Work Phone: [facility] Work Phone: End: 06-18-2021 Evaluation finding Aleah Villa Work Phone: [employer] Work Phone: Patient encounter status Aleah Villa Work Phone: [facility] Work Phone: Procedures Date Procedure Procedure Detail Performing Clinician Start: 09-21-2024 Urnls dip stick/tabl et rgnt non-auto w/o micrscp Guicho Davey REINFORCED CONCRETE INSPECTOR-FIELD COORDINATOR Work Phone: Start: 07-11-2024 Lipid 1996 panel - S eleazar or Plasma Zara Santa MD Work Phone: Start: 11-18-2023 Mri spinal canal lum bar w/o contrast material [facility] Work Phone: Start: 07-08-2023 CBC W Auto Different ial panel - Blood ALEAH VILLA Start: 07-08-2023 Comprehensive metabo lic 2000 panel - Serum or Plasma ALEAH VILLA Start: 07-08-2023 Lipid panel ALEAH VENTURA Start: 07-08-2023 Lipid 1996 panel - S eleazar or Plasma Aleah Villa MD Work Phone: Start: 01-25-2023 Microscopic observat ion [Identifier] in Cervix by Cyto stain Aleah Villa MD Work Phone: Start: 01-21-2023 End: 01-21-2023 Mammography Silvana Mancilla REINFORCED CONCRETE INSPECTOR-FIELD COORDINATOR Work Phone: Start: 01-29-2022 End: 01-29-2022 Screening mammography Start: 02-04-2021 Microscopic observat ion [Identifier] in Cervix by Cyto stain Silvana Mancilla REINFORCED CONCRETE INSPECTOR-FIELD COORDINATOR Work Phone: Start: 01-16-2020 Microscopic observat ion [Identifier] in Cervix by Cyto stain.thin prep Silvana Mancilla Start: 01-16-2020 Xray Bone Density, D exa 1 or More Sites Silvana Mancilla Start: 01-09-2020 Basic metabolic 1998 panel - Serum or Plasma Silvana Mancilla Start: 01-09-2020 CT Cardiac Scoring Anuradha Mancilla Start: 01-09-2020 Lipid panel Silvana sim Start: 02-19-2014 End: 02-19-2014 Colonoscopy Silvana Mancilla Start: 02-19-2014 Colonoscopy Aleah herman Work Phone: Comment on above: Dr. Evans in [place] ; Endometrial ablation Silvana Alon blas Plan of Treatment Date Care Activity Detail Author Start: 2033 RSV High Risk: (Elde rly (60+) or Population) (1 - 1-dose 75+ series) RSV High Risk: (Elderly (60+) or Population) (1 - 1-dose 75+ series) [facility] Start: 07-11-2029 Lipid panel Lipid Panel [facility] Start: 07-07-2028 Lipid panel Lipid Panel [facility] Start: 01-25-2026 Screening for malign ant neoplasm of cervix [facility] Start: 07-22-2025 End: 07-22-2025 Patient encounter procedure 07/22/2025 9:20 AM EDT Office Visit [facility] [address] [place] [phone] Zara Santa MD [address] [facility] [address] [place] [id number] [facility] Start: 07-21-2025 Medicare Annual Wellness Visit Medicare Annual Wellness Visit (AWV) [facility] Start: 01-07-2025 Influenza vaccination Influenz a Vaccine (Season Ended) [facility] Start: 07-20-2024 End: 07-20-2025 CBC panel - Blood by Automated count CBC Lab Routine Hyperlipidemia, unspecified hyperlipidemia type Expected: 07/20/2024 (Approximate), Expires: 07/20/2025 [facility] Work Phone: Comment on above: Expected: 07/20/2024 (Approximate), Expires: 07/20/2025 Start: 07-20-2024 End: 07-20-2025 Comprehensive metabolic 2000 panel - Serum or Plasma Comprehensive Metabolic Panel Lab Routine Hyperlipidemia, unspecified hyperlipidemia type Expected: 07/20/2024 (Approximate), Expires: 07/20/2025 [facility] Work Phone: Comment on above: Expected: 07/20/2024 (Approximate), Expires: 07/20/2025 Start: 07-20-2024 End: 09-19-2025 DBT Breast - bilateral BI mammo bilateral screening tomosynthesis Imaging Routine Encounter for screening mammogram for breast cancer Expected: 07/20/2024, Expires: 09/19/2025 [facility] Service Area Work Phone: Comment on above: Expected: 07/20/2024 , Expires: 09/19/2025 Start: 07-20-2024 End: 07-20-2025 DXA Skeletal system Views for bone density XR DEXA bone density Imaging Routine Menopause Expected: 07/20/2024, Expires: 07/20/2025 [facility] Work Phone: Comment on above: Expected: 07/20/2024 , Expires: 07/20/2025 Start: 07-20-2024 End: 07-20-2025 Lipid 1996 panel - Serum or Plasma Lipid Panel Lab Routine Hyperlipidemia, unspecified hyperlipidemia type Expected: 07/20/2024 (Approximate), Expires: 07/20/2025 [facility] Work Phone: Comment on above: Expected: 07/20/2024 (Approximate), Expires: 07/20/2025 Start: 07-20-2024 End: 07-20-2024 Patient encounter procedure 07/20/2024 9:20 AM EDT Office Visit [facility] [address] [place] [phone] Zara Santa MD [address] [facility] [address] [place] [address] [facility] Start: 07-11-2024 Medicare Annual Wellness Visit Medicare Annual Wellness Visit (AWV) [facility] Start: 07-10-2024 End: 07-10-2024 Patient encounter procedure 07/10/2024 9:40 AM EST Office Visit [facility] [address] [place] [phone] Zara Santa MD [address] [facility] [address] [place] [address] [facility] Start: 07-06-2024 End: 07-10-2024 CBC panel - Blood by Automated count CBC Lab Routine Hyperlipidemia, unspecified hyperlipidemia type Expected: 07/06/2024 (Approximate), Expires: 07/10/2024 [facility] Work Phone: Comment on above: Expected: 07/06/2024 (Approximate), Expires: 07/10/2024 Start: 07-06-2024 End: 07-10-2024 Comprehensive metabolic 2000 panel - Serum or Plasma Comprehensive Metabolic Panel Lab Routine Hyperlipidemia, unspecified hyperlipidemia type Expected: 07/06/2024 (Approximate), Expires: 07/10/2024 [facility] Work Phone: Comment on above: Expected: 07/06/2024 (Approximate), Expires: 07/10/2024 Start: 07-06-2024 End: 07-10-2024 Lipid 1996 panel - Serum or Plasma Lipid Panel Lab Routine Hyperlipidemia, unspecified hyperlipidemia type Expected: 07/06/2024 (Approximate), Expires: 07/10/2024 [facility] Work Phone: Comment on above: Expected: 07/06/2024 (Approximate), Expires: 07/10/2024 Start: 04-26-2024 End: 04-26-2024 ambulatory 04/26/2024 2:30 PM EST Treatment [facility] [address] [place] [address] Malena Valentin, PT [address] [place] [address] [facility] Start: 04-26-2024 End: 04-26-2024 Patient encounter procedure 04/26/2024 10:30 AM EST Office Visit [facility] [address] [place] [phone] Aleah Villa MD [address] [facility] [address] [place] [phone] [facility] Start: 04-24-2024 End: 04-24-2024 ambulatory 04/24/2024 10:30 AM EST Treatment [address] [place] [phone] Malena Valentin, PT [address] [facility] [place] [phone] [facility] Start: 04-20-2024 End: 04-20-2024 ambulatory 04/20/2024 12:30 PM EST Treatment [address] [phone] Malena Valentin, PT [address] [facility] [place] [phone] [facility] Start: 04-17-2024 End: 04-17-2024 ambulatory 04/17/2024 11:30 AM EST Treatment [address] [place] [address] Cristian Muhammad, PT [address] [facility] [place] [phone] [facility] Start: 04-12-2024 End: 04-12-2024 ambulatory 04/12/2024 2:45 PM EST Treatment [address] [phone] Cristian Muhammad, PT [address] [place] [address] [facility] Start: 03-29-2024 End: 03-29-2024 ambulatory 03/29/2024 9:45 AM EST Treatment [facility] [place] [address] Malena Valentin, PT [address] [place] [address] [facility] Start: 03-26-2024 End: 03-26-2024 ambulatory 03/26/2024 10:15 AM EST Treatment [facility] [place] [address] Malena Valentin, PT [address] [facility] [place] [place] [address] [facility] Start: 03-21-2024 End: 03-21-2024 ambulatory 03/21/2024 9:45 AM EST Treatment [address] [place] [address] Malena Valentin, PT [address] [facility] [place] [phone] [facility] Start: 03-19-2024 End: 03-19-2024 ambulatory 03/19/2024 10:45 AM EST Treatment [address] [place] [address] Malena Valentin, PT [address] [facility] [place] [place] [address] [facility] Start: 03-15-2024 End: 03-15-2024 ambulatory 03/15/2024 2:00 PM EST Treatment [address] [place] [address] Cristian Muhammad, PT [address] [facility] [place] [phone] [facility] Start: 03-13-2024 End: 03-13-2024 ambulatory 03/13/2024 9:45 AM EST Treatment [facility] [address] [place] [phone] Malena Valentin, PT [address] [facility] [place] [address] [facility] Start: 02-22-2024 End: 02-22-2024 Patient encounter procedure 02/22/2024 10:00 AM EDT Office Visit [facility] [address] [place] [phone] Aleah Villa MD [address] [facility] [address] [place] [address] [facility] Start: 02-20-2024 Screening for malign ant neoplasm of colon [facility] Start: 02-05-2024 Screening for malign ant neoplasm of cervix [facility] Start: 01-23-2024 End: 01-22-2025 CT Abdomen and Pelvis W contrast IV CT abdomen pelvis w IV contrast Imaging Routine Weight loss, non-intentional Expected: 01/23/2024, Expires: 01/22/2025 [facility] Service Area Work Phone: Comment on above: Expected: 01/23/2024 , Expires: 01/22/2025 Start: 01-22-2024 Screening for malign ant neoplasm of breast Mammogram [facility] Start: 01-11-2024 End: 09-09-2024 DBT Breast - bilateral BI mammo bilateral screening tomosynthesis Imaging Routine Screening mammogram, encounter for Expected: 01/11/2024, Expires: 09/09/2024 [facility] Work Phone: Comment on above: Expected: 01/11/2024 , Expires: 09/09/2024 Start: 01-11-2024 End: 07-10-2024 DXA Skeletal system Views for bone density XR DEXA bone density Imaging Routine Osteoporosis, unspecified osteoporosis type, unspecified pathological fracture presence Expected: 01/11/2024, Expires: 07/10/2024 [facility] Service Area Work Phone: Comment on above: Expected: 01/11/2024 , Expires: 07/10/2024 Start: 01-08-2024 COVID-19 Vaccine () COVID-19 Vaccine () [facility] Start: 01-08-2024 COVID-19 Vaccine () COVID-19 Vaccine () [facility] Start: 01-08-2024 Influenza vaccination Influenza Vacc ine (#1) [facility] Start: 12-30-2023 End: 12-29-2024 CBC panel - Blood by Automated count CBC Lab Routine Tachycardia Mixed anxiety depressive disorder Expected: 12/30/2023 (Approximate), Expires: 12/29/2024 [facility] Service Area Work Phone: Comment on above: Expected: 12/30/2023 (Approximate), Expires: 12/29/2024 Start: 12-30-2023 End: 12-29-2024 Cobalamin (Vitamin B12) [Mass/volume] in Serum or Plasma Vitamin B12 Lab Routine Tachycardia Mixed anxiety depressive disorder Expected: 12/30/2023 (Approximate), Expires: 12/29/2024 [facility] Work Phone: Comment on above: Expected: 12/30/2023 (Approximate), Expires: 12/29/2024 Start: 12-30-2023 End: 12-29-2024 Comprehensive metabolic 2000 panel - Serum or Plasma Comprehensive Metabolic Panel Lab Routine Tachycardia Mixed anxiety depressive disorder Expected: 12/30/2023 (Approximate), Expires: 12/29/2024 [facility] Work Phone: Comment on above: Expected: 12/30/2023 (Approximate), Expires: 12/29/2024 Start: 12-30-2023 End: 12-29-2024 Magnesium [Mass/volume] in Serum or Plasma Magnesium Lab Routine Tachycardia Mixed anxiety depressive disorder Expected: 12/30/2023 (Approximate), Expires: 12/29/2024 [facility] Work Phone: Comment on above: Expected: 12/30/2023 (Approximate), Expires: 12/29/2024 Start: 12-09-2023 End: 12-09-2023 Patient encounter procedure 12/09/2023 11:30 AM EDT Appointment [facility] [address] [place] [address] [facility] Start: 12-07-2023 End: 12-07-2023 Patient encounter procedure 12/07/2023 9:00 AM EDT Office Visit [facility] [address] [place] [phone] Aleah Villa MD [address] [facility] [address] [place] [phone] [facility] Start: 11-23-2023 End: 11-22-2024 Holter monitor study [facility] Service Area Work Phone: Comment on above: Expected: 11/23/2023 , Expires: 11/22/2024 Once for 1 Occurrenc es starting 11/23/2023 until 11/23/2023 Start: 11-23-2023 End: 05-25-2024 US Heart Transthoracic Transthoracic Echo Complete Echocardiography Routine Pulmonary artery abnormality ([facility]) Expected: 11/23/2023 (Approximate), Expires: 05/25/2024 [facility] Work Phone: Comment on above: Expected: 11/23/2023 (Approximate), Expires: 05/25/2024 Start: 11-23-2023 End: 11-23-2023 Patient encounter procedure 11/23/2023 9:30 AM EDT Office Visit [facility] [address] [place] [phone] Aleah Villa MD [address] [facility] [address] [place] [phone] [facility] Start: 07-26-2023 Pneumococcal Vaccine : 65+ Years (1 - PCV) Pneumococcal Vaccine: 65+ Years (1 - PCV) [facility] Start: 07-26-2023 Pneumococcal Vaccine : 65+ Years (1 of 1 - PCV) Pneumococcal Vaccine: 65+ Years (1 of 1 - PCV) [facility] Start: 07-11-2023 FUV, Provider: Aleah Villa, Status: Pen, Time: 9:30 AM FUV, Provider: Aleah Villa, Status: Pen, Time: 9:30 AM [facility] Work Phone: Start: 07-11-2023 End: 07-11-2023 Patient encounter procedure 07/11/2023 9:30 AM EST Office Visit [facility] [address] [place] [address] Aleah Villa MD [address] [facility] [address] [place] [address] [facility] Start: 01-29-2023 Screening for malign ant neoplasm of breast Mammogram [facility] Start: 01-25-2023 End: 03-27-2024 DBT Breast - bilateral BI mammo bilateral screening tomosynthesis Imaging Routine Screening mammogram for breast cancer Expected: 01/25/2023, Expires: 03/27/2024 [facility] Service Area Work Phone: Comment on above: Expected: 01/25/2023 , Expires: 03/27/2024 Start: 01-25-2023 End: 01-26-2024 DXA Skeletal system Views for bone density XR DEXA bone density Imaging Routine Osteoporosis, unspecified osteoporosis type, unspecified pathological fracture presence Expected: 01/25/2023, Expires: 01/26/2024 [facility] Work Phone: Comment on above: Expected: 01/25/2023 , Expires: 01/26/2024 Start: 01-07-2023 COVID-19 Vaccine ( season) COVID-19 Vaccine ( season) [facility] Start: 01-07-2023 Influenza vaccination Influenza Vacc ine (#1) [facility] Start: 06-17-2022 EPV, Provider: Aleah Villa, Status: Pen, Time: 9:30 AM EPV, Provider: Aleah Villa, Status: Pen, Time: 9:30 AM [facility] Work Phone: Start: 06-11-2021 COVID-19 Vaccine (4 - Booster for Moderna series) COVID-19 Vaccine (4 - Booster for Moderna series) [facility] Start: 06-11-2021 COVID-19 Vaccine (4 - Moderna series) COVID-19 Vaccine (4 - Moderna series) [facility] Start: 2018 RSV patient s and/or patients aged 60+ years (1 - 1-dose 60+ series) RSV patients and/or patients aged 60+ years (1 - 1-dose 60+ series) [facility] Start: 03-25-2009 MMR Vaccines (1 of 1 - Standard series) MMR Vaccines (1 of 1 - Standard series) [facility] Start: 2008 Pneumococcal vaccination Pneumococcal Vaccine (1 of 1 - PCV) [facility] Start: 2008 Zoster Vaccines (1 o f 2) Zoster Vaccines (1 of 2) [facility] Start: 1980 DTaP/Tdap/Td Vaccine s (1 - Tdap) DTaP/Tdap/Td Vaccines (1 - Tdap) [facility] Start: 07-26-1979 Screening for malign ant neoplasm of cervix [facility] Start: 1976 [facility]: 07-26[facility]1959 MMR Vaccines (1 of 1 - Standard series) MMR Vaccines (1 of 1 - Standard series) [facility] Start: 1960 Annual wellness visit Medicare Initial Physical (IPPE) [facility] Start: 1958 HIV screening HIV Screening [facility] Start: 1958 Lipid panel Lipid Panel [facility] Start: 1960 Screening for malign ant neoplasm of colon [facility] Start: 1958 Screening for osteoporosis Bone Density Scan [facility] Start: 1960 Yearly Adult Physical Yearly Adult P hysical [facility] Bacteria identified in Urine by Culture Urine Culture Microbiology Routine Dysuria Ordered: 09/21/2024 [facility] Service Area Work Phone: Comment on above: Ordered: 09/21/2024 End: 01-26-2024 CT Abdomen and Pelvis W contrast IV [facility] Service Area Work Phone: Comment on above: Once for 1 Occurrenc es starting 01/26/2024 until 01/26/2024 Cytology Cervical or vaginal smear or scraping study THINPREP PAP TEST Pathology and Cytology Routine Encounter for gynecological examination (general) (routine) without abnormal findings Ordered: 01/25/2023 [facility] Work Phone: Comment on above: Ordered: 01/25/2023 Immunizations Immunization Date Immunization Notes Care Provider Nasrin royal 02-22-2023 influenza, injectabl e, quadrivalent, preservative free Aleah Villa MD Work Phone: [facility] Work Phone: 02-22-2023 influenza virus vaccine, unspecified formulation [facility] Work Phone: 04-07-2022 influenza, injectabl e, quadrivalent, preservative free Aleah Villa Work Phone: [facility] Work Phone: 04-07-2022 influenza virus vaccine, unspecified formulation Zara Santa MD Work Phone: [facility] Work Phone: 04-16-2021 Moderna COVID-19 Vaccine 100 MCG/0.5ML Intramuscular Suspension Aleah Villa Work Phone: [facility] Work Phone: 03-10-2021 influenza, injectabl e, quadrivalent, preservative free Aleah Villa Work Phone: [facility] Work Phone: 06-05-2020 Moderna COVID-19 Vaccine 100 MCG/0.5ML Intramuscular Suspension Aleah Villa Work Phone: [facility] Work Phone: 05-08-2020 Moderna COVID-19 Vaccine 100 MCG/0.5ML Intramuscular Suspension Aleah Villa Work Phone: [facility] Work Phone: 02-06-2019 influenza, seasonal, injectable Silvana Mancilla [facility] Work Phone: Comment on above: Series: 02-13-2018 influenza virus vaccine, unspecified formulation; Translations: [influenza virus vaccine, unspecified formulation] Silvana Mancilla [facility] Work Phone: Comment on above: Series: 02-25-2009 novel [id number], preservative-free, injectable Aleah Villa Work Phone: [facility] Work Phone: Payers Date Payer Category Payer Self-pay [id number] 2023 Medicare [id number] 2023 Medicare supplementa l policy (as second payer) [employer] MEDICARE SELECT SUPPLEMENT [id number] 2023 Unknown 2023 Medicare [id number] 2023 Unknown [id number] 1960 Unknown [id number] 2.16.840.1.068755.3.579 .2.356 1958 Unknown [id number] 2.16.840.1.241713.3.579 .2.1244 1958 Unknown [id number] 2.16.840.1.133057.3.579 .2.1244 1958 Unknown [id number] 2.16.840.1.765327.3.579 .2.1244 1958 Unknown [id number] 2.16.840.1.592631.3.579 .2.1242 1958 Unknown [id number] 2.16.840.1.272624.3.579 .2.1242 1958 Unknown [id number] 2.16.840.1.810830.3.579 .2.1242 1958 Unknown [id number] 2.16.840.1.632371.3.579 .2.1242 1958 Unknown [id number] 2.16.840.1.054535.3.579 .2.1242 1958 Unknown [id number] 2.16.840.1.322410.3.579 .2.1242 1958 Unknown [id number] 2.16.840.1.129530.3.579 .2.1242 1958 Unknown [id number] 2.16.840.1.086691.3.579 .2.1242 1958 Unknown [id number] 2.16.840.1.885238.3.579 .2.1243 1958 Unknown [id number] 2.16.840.1.557810.3.579 .2.1242 1958 Unknown [id number] 2.16.840.1.320115.3.579 .2.1242 1958 Unknown [id number] 2.16.840.1.360596.3.579 .2.1242 1958 Unknown [id number] 2.16.840.1.547633.3.579 .2.1242 1958 Unknown [id number] 2.16.840.1.829535.3.579 .2.1242 1958 Unknown [id number] 2.16.840.1.211430.3.579 .2.1242 1958 Unknown [id number] 2.16.840.1.965029.3.579 .2.1242 1958 Unknown [id number] 2.16.840.1.313675.3.579 .2.1242 1958 Unknown [id number] 2.16.840.1.501859.3.579 .2.1242 1958 Unknown [id number] 2.16.840.1.610445.3.579 .2.1242 1958 Unknown [id number] 2.16.840.1.168102.3.579 .2.1243 1958 Unknown [id number] 2.16.840.1.913694.3.579 .2.1243 1958 Unknown [id number] 2.16.840.1.577808.3.579 .2.1243 1958 Unknown [id number] 2.16.840.1.586829.3.579 .2.1243 1958 Unknown [id number] 2.16.840.1.144960.3.579 .2.12431959 Unknown [id number] 2.16.840.1.893699.3.579 .2.1244 1958 Unknown [id number] 2.16.840.1.170793.3.579 .2.1244 1958 Unknown [id number] 2.16.840.1.345975.3.579 .2.1244 Private Health Insurance [employer] [id number] Self-pay [id number] Unknown ANTHJEN [id number] Unknown [facility] PACKAGE PLAN [id number] Unknown [id number] 2.16.840.1.953100.3.579 .2.462 Unknown [id number] 2..840.1.216184.3.579 .2.462 Social History Date Type Detail Facility Start: 12-07-2022 End: 07-20-2024 Never smoker Never smoker [facility] Work Phone: Comment on above: Puneet VERA at [facility] - Retired 09/11/20; Start: 10-01-2017 Tobacco smoking status MTIS Unknown if ever smoked [facility] Start: 1960 Sex Assigned At Female W [facility] Start: 12-07-2022 Tobacco smoking status NHIS Never smoked tobacco [facility] Work Phone: Start: 12-07-2022 Tobacco use and exposure Smokeless tobacco non-user [facility] Work Phone: Start: 12-07-2022 End: 07-20-2024 Tobacco use panel [facility] Work Phone: Start: 1960 Sex Assigned At Not on file [facility] Work Phone: Start: 11-27-2022 End: 09-21-2024 Exposure to SARS-CoV-2 (event) Not sure [facility] Start: 07-11-2023 End: 07-20-2024 Alcohol intake Lifetime non-drinker (finding) [facility] Work Phone: NEGATED: Highlighted row - - [facility] Work Phone: Functional Status Date Assessment Result Facility NEGATED: Highlighted row Functional performance Functional status health issues are not documented Disease [facility] Work Phone: Mental Status Date Assessment Result Facility NEGATED: Highlighted row Cognitive function [Interpretation] Cognitive status health issues are not documented Disease [facility] Work Phone: Clinical Notes 06-17-2018 to 09-21-2024 Guicho Davey, RYLIE-FIELD COORDINATOR - 09/21/2024 9:35 AM EDTAssessment & Plan Note - Zara Santa MD - 07/20/2024 9:20 AM EDTAssessment & Plan Note - Zara Santa MD - 07/20/2024 9:20 AM EDT Note Date & Type Note Facility 09-21-2024 History of Presen t illness Narrative 64 y.o. female presents for evaluation of dysuria. Patient reports 3 days of increased urinary frequency, mild suprapubic discomfort, and 1 episode of hematuria. Patient denies fever, nausea, vomiting, flank pains, vaginal discharge/itching/lesions or other constitutional signs and symptoms. Did take AZO otc x 2 doses. Also took 1 dose of Cipro yesterday that she had from an old Rx. States she used to have recurring UTIs but has not had one for approximately 1 year. No other complaints. Vitals: 09/21/24 0941 BP: 150/76 Pulse: (!) 115 Temp: 36.9 C (98.5 F) SpO2: 99% RX Allergies[1] Medication Documentation Review Audit Reviewed by Maggy Medeiros MA ([place] Manager) on 09/21/24 at 0940 Medication Order Taking? Sig Documenting Provider Last Dose Status alendronate (Fosamax) 70 mg tablet [id number] Yes Take 1 tablet (70 mg) by mouth every 7 days. TAKE 1 TABLET ONCE WEEKLY with full glass of water on empty stomach first thing in the morning. To stay upright and avoid eating for 30 min. Zara Santa MD Active atorvastatin (Lipitor) 20 mg tablet [id number] Yes Take 1 tablet (20 mg) by mouth once daily. Zara Santa MD Active busPIRone (Buspar) 5 mg tablet [id number] Yes Take 1 tablet (5 mg) by mouth 2 times a day. Zara Santa MD Active ciprofloxacin (Cipro) 250 mg tablet [id number] No Take 1 tablet (250 mg) by mouth 2 times a day as needed (uti symptoms). Patient not taking: Reported on 09/21/2024 Aleah Villa MD Taking Active cyclobenzaprine (Flexeril) 5 mg tablet [id number] Yes Take 1 tablet (5 mg) by mouth if needed for muscle spasms (sciatica). Zara Santa MD Active diazePAM (Valium) 2 mg tablet [id number] Yes 1/2 tablet 3-4 times per day. Aleah Villa MD Active multivitamin with minerals tablet [id number] Yes Take 1 tablet by mouth once daily. Historical Provider, Taking Active venlafaxine XR (Effexor-XR) 37.5 mg 24 hr capsule [id number] Yes Take 1 capsule (37.5 mg) by mouth 3 times a day. Do not crush or chew. Miguel A High, REINFORCED CONCRETE INSPECTOR-FIELD COORDINATOR Active Medical History[2] Surgical History[3] ROS See HPI Physical Exam Vitals and nursing note reviewed. Constitutional: General: She is not in acute distress. Appearance: Normal appearance. She is not ill-appearing or toxic-appearing. Cardiovascular: Rate and Rhythm: Normal rate and regular rhythm. Abdominal: General: There is no distension. Palpations: Abdomen is soft. Tenderness: There is abdominal tenderness in the suprapubic area. There is no right CVA tenderness, left CVA tenderness, guarding or rebound. Genitourinary: General: Normal vulva. Vagina: No vaginal discharge. Comments: Per pt report Skin: General: Skin is warm and dry. Neurological: General: No focal deficit present. Mental Status: She is alert and oriented to person, place, and time. Psychiatric: Mood and Affect: Mood normal. Behavior: Behavior normal. Recent Results (from the past hour) POCT UA (nonautomated w/o microscopy) manually resulted Collection Time: 09/21/24 9:46 AM Result Value Ref Range POC Color, Urine Ocean (A) Straw, Yellow, Light-Yellow POC Appearance, Urine Clear Clear POC Glucose, Urine 100 (1+) (A) NEGATIVE mg/dl POC Bilirubin, Urine NEGATIVE NEGATIVE POC Ketones, Urine NEGATIVE NEGATIVE mg/dl POC Specific [place], Urine 1.010 1.005 - 1.035 POC Blood, Urine NEGATIVE NEGATIVE POC PH, Urine 6.0 No Reference Range Established PH POC Protein, Urine 30 (1+) (A) NEGATIVE mg/dl POC Urobilinogen, Urine 1.0 0.2, 1.0 EU/DL Poc Nitrite, Urine POSITIVE (A) NEGATIVE POC Leukocytes, Urine NEGATIVE NEGATIVE Pt did take AZO Assessment/Plan/MDM Silvana was seen today for uti. Diagnoses and all orders for this visit: Dysuria (Primary) - POCT UA (nonautomated w/o microscopy) manually resulted - nitrofurantoin, macrocrystal-monohydrate, (Macrobid) 100 mg capsule; Take 1 capsule (100 mg) by mouth 2 times a day for 7 days. - Urine Culture Will treat today as patient is asymptomatic and [id number] UA is skewed due to use of Azo. Urine sent for culture. Encouraged patient increase water intake, avoid caffeine/energy drinks, void after intercourse, wipe front to back after voiding and bowel movements, avoid baths/hot tubs/pools, avoid tight fitting garments, empty bladder frequently. Patient's clinical presentation is otherwise unremarkable at this time. Patient is discharged with instructions to follow-up with primary care or seek emergency medical attention for worsening symptoms or any new concerns. I did personally review Silvana's past medical history, surgical history, social history, as well as family history (when relevant). In this case, I also oversaw the her drug management by reviewing her medication list, allergy list, as well as the medications that I prescribed during the UC course and/or recommended as an out-patient (including possible OTC medications such as acetaminophen, NSAIDs , etc). After reviewing the items above, I did look at previous medical documentation, such as recent hospitalizations, office visits, and/or recent consultations with PCP/specialist. SDOH: Another factor that I considered in Silvana's care was her Social Determinants of Health (SDOH). During this UC encounter, she did not have social determinants of health. Those SDOH influencing Silvana's care are: none Guicho Davey CNP [facility] [phone] [1] Allergies Allergen Reactions Sertraline Other Overwhelming Tingling, jittery, shakiness, elevated BP Sulfa (Sulfonamide Antibiotics) Itching and Rash [2] Past Medical History: Diagnosis Date Acute tonsillitis, unspecified 07/09/2019 Tonsillitis with exudate Encounter for other screening for malignant neoplasm of breast 02/04/2021 Screening for malignant neoplasm of breast Encounter for other screening for malignant neoplasm of breast 01/16/2020 Screening for breast cancer Encounter for preprocedural laboratory examination 07/01/2020 Blood tests prior to treatment or procedure Other conditions influencing health status 07/06/2019 On antibiotic therapy [3] Past Surgical History: Procedure Laterality Date OTHER SURGICAL HISTORY 07/05/2019 Endometrial ablation OTHER SURGICAL HISTORY 02/19/2014 Colonoscopy documented in this encounter [facility] Work Phone: 07-20-2024 Evaluation + Plan note Associated Problem(s): Osteoporosis Orders: alendronate (Fosamax) 70 mg tablet; Take 1 tablet (70 mg) by mouth every 7 days. TAKE 1 TABLET ONCE WEEKLY with full glass of water on empty stomach first thing in the morning. To stay upright and avoid eating for 30 min. [facility] Work Phone: 07-20-2024 Evaluation + Plan note Associated Problem(s): Hyperlipidemia Orders: atorvastatin (Lipitor) 20 mg tablet; Take 1 tablet (20 mg) by mouth once daily. Comprehensive Metabolic Panel; Future Lipid Panel; Future CBC; Future [facility] Work Phone: 07-20-2024 Evaluation + Plan note Associated Problem(s): Lumbar foraminal stenosis Orders: cyclobenzaprine (Flexeril) 5 mg tablet; Take 1 tablet (5 mg) by mouth if needed for muscle spasms (sciatica). [facility] Work Phone: 07-20-2024 Evaluation + Plan note Associated Problem(s): Mixed anxiety depressive disorder Orders: busPIRone (Buspar) 5 mg tablet; Take 1 tablet (5 mg) by mouth 2 times a day. [facility] Work Phone: 07-20-2024 History of Presen t illness Narrative Subjective Reason for Visit: Silvana Perea is an 63 y.o. female here for a Medicare Wellness visit. Past Medical, Surgical, and Family History reviewed and updated in chart. Reviewed all medications by prescribing practitioner or clinical pharmacist (such as prescriptions, OTCs, herbal therapies and supplements) and documented in the medical record. HPI HPOA and living will yes CODE STATUS undecided Labs reviewed cholesterol total 197 HDL 59 LDL 120 CBC CMP normal High chol has not taken atorvastatin for [address] cardiac 31 in 2020 in the [facility] Echo was nromal 2023 Fxhx Positive Osteoporosis started 2021 On fosamax TAWNYA on buspar Decreased effexor to 75mg in the am 2 weeks ago Sciatica last year goes to chiropracter in [place] Recommend PT and adjustment 2023 Had electrical feeling in legs with legs and felt worse with adjustment and develop right shoulder pain Due to that had anxiety Colonoscopy lyerly will schedule Gen Surgery recommend Dr Vigil Patient Care Team: Zara Santa MD as PCP - General (Family Medicine) Aleah Villa MD as PCP - MSSP ACO Attributed Provider Review of Systems Objective Vitals: BP 110/70 Pulse 92 Wt (!) 40.8 kg (89 lb 14.4 oz) SpO2 99% BMI 17.27 kg/m Physical Exam Vitals reviewed. Constitutional: Appearance: Normal appearance. HENT: Head: Normocephalic and atraumatic. Eyes: Conjunctiva/sclera: Conjunctivae normal. Cardiovascular: Rate and Rhythm: Normal rate and regular rhythm. Pulmonary: Effort: Pulmonary effort is normal. Breath sounds: Normal breath sounds. Musculoskeletal: Cervical back: Neck supple. Skin: General: Skin is warm and dry. Neurological: General: No focal deficit present. Mental Status: She is alert and oriented to person, place, and time. Psychiatric: Mood and Affect: Mood normal. Behavior: Behavior normal. Thought Content: Thought content normal. Judgment: Judgment normal. Assessment & Plan Osteoporosis, unspecified osteoporosis type, unspecified pathological fracture presence Orders: alendronate (Fosamax) 70 mg tablet; Take 1 tablet (70 mg) by mouth every 7 days. TAKE 1 TABLET ONCE WEEKLY with full glass of water on empty stomach first thing in the morning. To stay upright and avoid eating for 30 min. Hyperlipidemia, unspecified hyperlipidemia type Orders: atorvastatin (Lipitor) 20 mg tablet; Take 1 tablet (20 mg) by mouth once daily. Comprehensive Metabolic Panel; Future Lipid Panel; Future CBC; Future Lumbar foraminal stenosis Orders: cyclobenzaprine (Flexeril) 5 mg tablet; Take 1 tablet (5 mg) by mouth if needed for muscle spasms (sciatica). Mixed anxiety depressive disorder Orders: busPIRone (Buspar) 5 mg tablet; Take 1 tablet (5 mg) by mouth 2 times a day. Tachycardia Orders: busPIRone (Buspar) 5 mg tablet; Take 1 tablet (5 mg) by mouth 2 times a day. Routine general medical examination at health care facility Orders: 1 Year Follow Up In Primary Care - Wellness Exam; Future Encounter for screening mammogram for breast cancer Orders: BI mammo bilateral screening tomosynthesis; Future Menopause Orders: XR DEXA bone density; Future documented in this encounter [facility] Work Phone: 07-20-2024 Miscellaneous Notes Associated Problem(s): Osteoporosis Orders: alendronate (Fosamax) 70 mg tablet; Take 1 tablet (70 mg) by mouth every 7 days. TAKE 1 TABLET ONCE WEEKLY with full glass of water on empty stomach first thing in the morning. To stay upright and avoid eating for 30 min. Associated Problem(s): Hyperlipidemia Orders: atorvastatin (Lipitor) 20 mg tablet; Take 1 tablet (20 mg) by mouth once daily. Comprehensive Metabolic Panel; Future Lipid Panel; Future CBC; Future Associated Problem(s): Lumbar foraminal stenosis Orders: cyclobenzaprine (Flexeril) 5 mg tablet; Take 1 tablet (5 mg) by mouth if needed for muscle spasms (sciatica). Associated Problem(s): Mixed anxiety depressive disorder Orders: busPIRone (Buspar) 5 mg tablet; Take 1 tablet (5 mg) by mouth 2 times a day. documented in this encounter [facility] Work Phone: 05-30-2024 History of Presen t illness Narrative Subjective Patient ID: Silvana Perea is a 63 y.o. female who presents for 3 week follow up (Pt is here today for 3 week follow up. Colonoscopy is due, her mammo and dexa scan have been ordered but they need scheduled. AWV due in July. Needs CSA and UDS). Patient presents today for 3-week follow-up after tapering herself off of Xanax. She is previously a patient of Dr. Aleah Villa and is scheduled to see Dr. Santa at a later date. Lumbosacral pain/sciatica: She has been treated in the past for nerve impingement at L3-L4 and L4-L5 radiating down her leg. She had used both Ativan and Xanax for this. Her previous provider discussed discontinuation of these medications with her and she was agreeable. She has now completely tapered off of both and has not been on Xanax for over a week. She did have some mild withdrawal symptoms but they were minimal and short-term. Under current presentation she is having some acute muscle spasms in her right gluteal area. We discussed the nature of these and her facet arthropathy. A full examination of the hip and lower back was performed with no increased pain with movement or palpation. Based off the patient's report is likely this is a muscle spasm caused by 7 to 8 weeks of physical therapy. We discussed multiple treatment methods, she will use a as needed Flexeril at night to relieve spasm. She has a TENS unit, cryo pack and is using massotherapy. All of these are appropriate, she is also used a foam roller in the past. I did discuss with her the nature of chronic back problems and exacerbation of injuries. She is understanding that this is a lifelong management situation. Anxiety: Currently controlled with her Effexor she is going to split her dose throughout the day as she feels that taking all of her medications at 1 time at night is making her a little too sleepy. We did discuss that over time he will be appropriate to begin tapering his medications as well, as she does report that the anxiety was solely related to her back injury and now that that has resolved the anxiety is better. She did also have some concerns about interactions between her other medications and her Effexor which we discussed. Review of Systems Constitutional: Negative for chills, diaphoresis, fatigue and unexpected weight change. HENT: Negative for dental problem, tinnitus and trouble swallowing. Eyes: Negative for visual disturbance. Respiratory: Negative for chest tightness and shortness of breath. Cardiovascular: Negative for chest pain, palpitations and leg swelling. Gastrointestinal: Negative for abdominal pain, constipation, diarrhea, nausea and rectal pain. Endocrine: Negative for polydipsia, polyphagia and polyuria. Genitourinary: Negative for difficulty urinating, frequency and urgency. Musculoskeletal: Negative for arthralgias and myalgias. Skin: Negative for pallor and wound. Neurological: Negative for syncope, weakness, numbness and headaches. Psychiatric/Behavioral: Negative for suicidal ideas. The patient is not nervous/anxious. Objective BP 130/78 Pulse 87 Ht 1.537 m (5' 0.5) Wt (!) 39.4 kg (86 lb 12.8 oz) SpO2 97% BMI 16.67 kg/m Physical Exam Vitals and nursing note reviewed. Constitutional: General: She is not in acute distress. Appearance: Normal appearance. She is normal weight. HENT: Head: Normocephalic. Nose: Nose normal. Mouth/Throat: Mouth: Mucous membranes are moist. Pharynx: Oropharynx is clear. Eyes: General: No scleral icterus. Pupils: Pupils are equal, round, and reactive to light. Cardiovascular: Rate and Rhythm: Normal rate and regular rhythm. Pulses: Normal pulses. Heart sounds: Normal heart sounds. Pulmonary: Effort: Pulmonary effort is normal. Breath sounds: Normal breath sounds. Abdominal: General: Bowel sounds are normal. There is no distension. Palpations: Abdomen is soft. Musculoskeletal: General: Tenderness (Right buttock) present. No swelling, deformity or signs of injury. Normal range of motion. Cervical back: Normal range of motion. Skin: General: Skin is warm and dry. Capillary Refill: Capillary refill takes less than 2 seconds. Coloration: Skin is not jaundiced or pale. Findings: No bruising or erythema. Neurological: General: No focal deficit present. Mental Status: She is alert and oriented to person, place, and time. Mental status is at baseline. Cranial Nerves: No cranial nerve deficit. Sensory: No sensory deficit. Motor: No weakness. Coordination: Coordination normal. Gait: Gait normal. Deep Tendon Reflexes: Reflexes normal. Psychiatric: Mood and Affect: Mood normal. Behavior: Behavior normal. Thought Content: Thought content normal. Judgment: Judgment normal. Assessment/Plan Diagnoses and all orders for this visit: Lumbar foraminal stenosis - cyclobenzaprine (Flexeril) 5 mg tablet; Take 1 tablet (5 mg) by mouth as needed at bedtime for muscle spasms for up to 7 days. Mixed anxiety depressive disorder - Follow Up In Primary Care - Established - venlafaxine XR (Effexor-XR) 37.5 mg 24 hr capsule; Take 1 capsule (37.5 mg) by mouth 3 times a day. Do not crush or chew. - busPIRone (Buspar) 5 mg tablet; Take 1 tablet (5 mg) by mouth 2 times a day. Tachycardia - busPIRone (Buspar) 5 mg tablet; Take 1 tablet (5 mg) by mouth 2 times a day. documented in this encounter [facility] Work Phone: 04-26-2024 History of Presen t illness Narrative Subjective Patient ID: Silvana Perea is a 63 y.o. female who presents for Follow-up. 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 Was on Prednisone for 10 days. Podiatry suggested EMG/NCT She went to chiropractor for acupuncture who did Xrays and felt having herniated disk.. She is to have adjustments, injections with Sarapim, postural therapy. Did an MRI which did show a bulging disks with mild foraminal stenosis of L3-4 and L4-5. But no central stenosis. Does have some facet arthrosis as well at those levels. No numbness in the leg or foot. Worse with shoes on the feet. And seems to affect the thigh for some reason. Now getting trigger points on the thigh as she has the chiropractor treatments and some kind of vagal nerve stimulator Went on vacation that she felt a lot better for that week Developing tingling in the body and then the racing heart Heart rate could not be counted then down to 130 on November 13 When she does anything she goes up to 120 Will feel good and then it will kick in Feels regular BP has been high up to 180/110 To ER at [facility] Normal labs - Troponin, CBC, BMP, TSH, EKG did show incomplete LBBB Feels nervous with that due to sons unexpectedly in the past CXR showed prominent pulmonary arteries Has been noting burning in mouth for months getting worse with this. 12/07/23 Since her last visit she has not done any of the chiropractor treatment for the heart but did have a treatment for a rib pain. She did the Holter but just turned that in. Was feeling better up till about 4 days ago. Then started have pain in the leg and back and the tingling started and anxious feeling. BP and heart rate has been good and did not take metoprolol. The last 2 nights has been waking and feeling jittery and shaking. Feels like she could jump out of skin. Feels she would just like to have it settle down. We discussed last time using Ativan. Has been on Zoloft in the past. Went off due to feeling numb and could not grieve. Will consider Cymbalta at 20 as she is concerned it is not too strong. Was only on 25 of Zoloft. Also will add Ativan 0.5 prn. She is reluctant to go on anything buttermaker. But rather than changing would prefer Zoloft. Continues to have pain in the right hip with triggers. Chiropractor has not helped. Will try US for triggers. Consider pain medicine or PT. MRI shows mild foraminal stenosis. Did have postural therapy with chiropractor. 12/30/23 Has continued to lose weight from 100 down to 90 with BMI of 17. She feels she is eating less. But even with eating she will lose weight. Some nausea with Zoloft. She has stopped that a couple times.. Made her shaky and jittery and tingling and raised BP. Symptoms started about 5 days in each time. She is still on Ativan at 0.25 mg bid. Then Tylenol for discomfort in the buttocks and back. Ativan does take away the symptoms of high BP and pulses as well as the burning in the mouth. Labs as above at [facility]. She is very concerned about polypharmacy. Metoprolol no longer as pulse has settled. Skin feels numb. Does not turn red. And off of the Zoloft the BP does not get as high. Still in 140s and 150 with normal diastolics in AM. Jittery inside She feels that it is more than anxiety. She does not want to be this way she says. She would like to see Dr Garrett and I would agree with that to look as adrenogenic causes. Would like to check labs again. She has the triggers in the glutes. To see chiropractor for laser treatment. 01/23/24 Having good and bad days. Cannot go without the Ativan. 1/2 bid and occasionally a third. She has lost another pound. Will have good spells for hours at a time. Still eating. Tylenol for pain several times a day for pain and helps the tingling and jittery feeling. Ativan helps the burning in the mouth. She is to see Dr Garrett on February 14. She started to Buspar last time and has increased to 5 bid. Appetite still has not been good. She eats when hungry and varies from day to day. BP has been good when on Ativan. When she is jittery will go up to 140. B12 and magnesium and CMP and CBC She is getting laser treatment to the buttocks but not helping like she hope. For now considering Ativan temporary so no CSA or UDS but will need if not able to taper soon Will hold on mammogram and fluvax for now. 02/22/24 She was not able to tolerate the higher dose of the Buspar. Got very jittery. Tolerates the lower dose. Not sure if it is helping. Cannot go without the Ativan. BP and pulse went up. She does need the Ativan 1/2 of 0.5 tid. Has tried Zoloft and got more weak and jittery and emotional. When it is time for Ativan she finds pain increases, burning in mouth, electrical feeling, numb in arms. Dr Garrett on February 14. No cardiac issue identified. Feels tachycardia due to anxiety as Holter, ECHO unremarkable. Will go with neurology referral for the hip pain and the dysesthesia. Has spinal stenosis. She feels that if the hip could be better then he anxiety would be better. So will also send to PT. Continues to lose weight. Was worse with Buspar on high doses. Will wait on UDS to see if she can get off of medication. Will discuss behavioral access clinic. She is wanting to try something else for anxiety So will try her on Effexor as a SNRI She tried to taper off of Buspar and feels it was doing more than she thought. So back on full dose. She is on same dose of Ativan. Does not relax the muscles anymore. She has not been able to taper on Ativan so will switch to Valium to get lower doses and longer duration. The equivalent dosage would be a little about 4 mg per day. So will go with 1/2 tablet 3-4 times per day. Went up on Effexor and went OK at 75 per day so will increase again in a week to 112.5 She is down another pound Has had therapy with dry needling and so far no change Stretches do help 04/12/24 She says it was rough the first 2 days and then fine. Was shaky and jittery. But then settled down. She has cut to 3 per day. Has had been able to stretch to 9 hours. She does not feel she can go to 12 hours. So will try an hour at a time. Try to drop 1/4 pill per day every 4-7 days. She has follow up in 2 weeks to assess progress. 04/26/24 She is now at 1/2 pill in AM. 1/4 at midnight and at 4 PM. She is ready to drop to 1/4 in AM. Starting to feel shaky before she takes the 1/2. Andrea gives her jittery feeling for an hour after taking it. Effexor seems to work well. The hip pain is still having more good than bad days. Chiropractor did adjust a rib that did help. She is almost done with therapy. Dry needling and tissue manipulation of knots. Dry needling did not help first time but did the second time.. Had some thickening of bladder. She has normal UA. MRI showed mild stenosis. She says the foot pain she was having correlates with the hip pain. Has pain still over the ischial tuberosity. They feel that it is bursitis in PT. Tender spot there so can try Voltaren Gel. Weight is unchanged. The anxiety seems to have been set off by the pain in the hip. CSA 02/22/24 I have personally reviewed the patients OARRS report. I have considered the risks of abuse, addiction and diversion. I believe it is clinically appropriate to continue to prescribe this medication. Review of Systems Objective BP 126/62 (BP Location: Left arm, Patient Position: Sitting) Pulse (!) 112 Wt (!) 39 kg (86 lb 1 oz) SpO2 96% BMI 16.53 kg/m Physical Exam Constitutional: Appearance: Normal appearance. Cardiovascular: Rate and Rhythm: Normal rate and regular rhythm. Pulmonary: Effort: Pulmonary effort is normal. No respiratory distress. Breath sounds: Normal breath sounds. Abdominal: General: Abdomen is flat. Palpations: Abdomen is soft. Musculoskeletal: General: Tenderness (right ischial tuberosity) present. Skin: General: Skin is warm and dry. Neurological: Mental Status: She is alert. Assessment/Plan Diagnoses and all orders for this visit: Weight loss, non-intentional Mixed anxiety depressive disorder - venlafaxine XR (Effexor-XR) 37.5 mg 24 hr capsule; Take 1 capsule (37.5 mg) by mouth 3 times a day. Do not crush or chew. - diazePAM (Valium) 2 mg tablet; 1/2 tablet 3-4 times per day. - Follow Up In Primary Care - Established; Future Lumbar foraminal stenosis Gluteal pain documented in this encounter [facility] Work Phone: 04-26-2024 Instructions Aleha Villa MD - 04/26/2024 10:30 AM EST Voltaren gel on the bursa pain 2 times a day documented in this encounter [facility] Work Phone: 04-12-2024 History of Presen t illness Narrative Subjective Patient ID: Silvana Perea is a 63 y.o. female who presents for Follow-up. 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 Was on Prednisone for 10 days. Podiatry suggested EMG/NCT She went to chiropractor for acupuncture who did Xrays and felt having herniated disk.. She is to have adjustments, injections with Sarapim, postural therapy. Did an MRI which did show a bulging disks with mild foraminal stenosis of L3-4 and L4-5. But no central stenosis. Does have some facet arthrosis as well at those levels. No numbness in the leg or foot. Worse with shoes on the feet. And seems to affect the thigh for some reason. Now getting trigger points on the thigh as she has the chiropractor treatments and some kind of vagal nerve stimulator Went on vacation that she felt a lot better for that week Developing tingling in the body and then the racing heart Heart rate could not be counted then down to 130 on November 13 When she does anything she goes up to 120 Will feel good and then it will kick in Feels regular BP has been high up to 180/110 To ER at [facility] Normal labs - Troponin, CBC, BMP, TSH, EKG did show incomplete LBBB Feels nervous with that due to sons unexpectedly in the past CXR showed prominent pulmonary arteries Has been noting burning in mouth for months getting worse with this. 12/07/23 Since her last visit she has not done any of the chiropractor treatment for the heart but did have a treatment for a rib pain. She did the Holter but just turned that in. Was feeling better up till about 4 days ago. Then started have pain in the leg and back and the tingling started and anxious feeling. BP and heart rate has been good and did not take metoprolol. The last 2 nights has been waking and feeling jittery and shaking. Feels like she could jump out of skin. Feels she would just like to have it settle down. We discussed last time using Ativan. Has been on Zoloft in the past. Went off due to feeling numb and could not grieve. Will consider Cymbalta at 20 as she is concerned it is not too strong. Was only on 25 of Zoloft. Also will add Ativan 0.5 prn. She is reluctant to go on anything long-term. But rather than changing would prefer Zoloft. Continues to have pain in the right hip with triggers. Chiropractor has not helped. Will try US for triggers. Consider pain medicine or PT. MRI shows mild foraminal stenosis. Did have postural therapy with chiropractor. 12/30/23 Has continued to lose weight from 100 down to 90 with BMI of 17. She feels she is eating less. But even with eating she will lose weight. Some nausea with Zoloft. She has stopped that a couple times.. Made her shaky and jittery and tingling and raised BP. Symptoms started about 5 days in each time. She is still on Ativan at 0.25 mg bid. Then Tylenol for discomfort in the buttocks and back. Ativan does take away the symptoms of high BP and pulses as well as the burning in the mouth. Labs as above at [facility]. She is very concerned about polypharmacy. Metoprolol no longer as pulse has settled. Skin feels numb. Does not turn red. And off of the Zoloft the BP does not get as high. Still in 140s and 150 with normal diastolics in AM. Jittery inside She feels that it is more than anxiety. She does not want to be this way she says. She would like to see Dr Garrett and I would agree with that to look as adrenogenic causes. Would like to check labs again. She has the triggers in the glutes. To see chiropractor for laser treatment. 01/23/24 Having good and bad days. Cannot go without the Ativan. 1/2 bid and occasionally a third. She has lost another pound. Will have good spells for hours at a time. Still eating. Tylenol for pain several times a day for pain and helps the tingling and jittery feeling. Ativan helps the burning in the mouth. She is to see Dr Garrett on February 14. She started to Buspar last time and has increased to 5 bid. Appetite still has not been good. She eats when hungry and varies from day to day. BP has been good when on Ativan. When she is jittery will go up to 140. B12 and magnesium and CMP and CBC She is getting laser treatment to the buttocks but not helping like she hope. For now considering Ativan temporary so no CSA or UDS but will need if not able to taper soon Will hold on mammogram and fluvax for now. 02/22/24 She was not able to tolerate the higher dose of the Buspar. Got very jittery. Tolerates the lower dose. Not sure if it is helping. Cannot go without the Ativan. BP and pulse went up. She does need the Ativan 1/2 of 0.5 tid. Has tried Zoloft and got more weak and jittery and emotional. When it is time for Ativan she finds pain increases, burning in mouth, electrical feeling, numb in arms. Dr Garrett on February 14. No cardiac issue identified. Feels tachycardia due to anxiety as Holter, ECHO unremarkable. Will go with neurology referral for the hip pain and the dysesthesia. Has spinal stenosis. She feels that if the hip could be better then he anxiety would be better. So will also send to PT. Continues to lose weight. Was worse with Buspar on high doses. Will wait on UDS to see if she can get off of medication. Will discuss behavioral access clinic. She is wanting to try something else for anxiety So will try her on Effexor as a SNRI She tried to taper off of Buspar and feels it was doing more than she thought. So back on full dose. She is on same dose of Ativan. Does not relax the muscles anymore. She has not been able to taper on Ativan so will switch to Valium to get lower doses and longer duration. The equivalent dosage would be a little about 4 mg per day. So will go with 1/2 tablet 3-4 times per day. Went up on Effexor and went OK at 75 per day so will increase again in a week to 112.5 She is down another pound Has had therapy with dry needling and so far no change Stretches do help 04/12/24 She says it was rough the first 2 days and then fine. Was shaky and jittery. But then settled down. She has cut to 3 per day. Has had been able to stretch to 9 hours. She does not feel she can go to 12 hours. So will try an hour at a time. Try to drop 1/4 pill per day every 4-7 days. She has follow up in 2 weeks to assess progress. CSA 02/22/24 I have personally reviewed the patients OARRS report. I have considered the risks of abuse, addiction and diversion. I believe it is clinically appropriate to continue to prescribe this medication. Review of Systems Objective BP 124/76 (BP Location: Left arm, Patient Position: Sitting) Pulse 96 Wt (!) 39 kg (86 lb) SpO2 98% BMI 16.52 kg/m Physical Exam Constitutional: Appearance: Normal appearance. She is normal weight. Cardiovascular: Rate and Rhythm: Normal rate and regular rhythm. Pulmonary: Effort: Pulmonary effort is normal. Breath sounds: Normal breath sounds. Skin: General: Skin is warm and dry. Neurological: General: No focal deficit present. Mental Status: She is alert and oriented to person, place, and time. Psychiatric: Mood and Affect: Mood normal. Behavior: Behavior normal. Thought Content: Thought content normal. Judgment: Judgment normal. Assessment/Plan Diagnoses and all orders for this visit: Mixed anxiety depressive disorder - Follow Up In Primary Care - Established documented in this encounter [facility] Work Phone: 04-12-2024 Instructions Aleah Villa MD - 04/12/2024 1:30 PM EST Go /2: /4; 1/2 for 4-7 days Then /4; 1/4; 1/2 for another 4-7 days Then 1/4; 1/4; 1/4 for another 4-7 days The drop to 1/4 twice a day You can stop and wait at any point. documented in this encounter [facility] Work Phone: 03-26-2024 History of Presen t illness Narrative Subjective Patient ID: Silvana Perea is a 63 y.o. female who presents for Follow-up. 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 Was on Prednisone for 10 days. Podiatry suggested EMG/NCT She went to chiropractor for acupuncture who did Xrays and felt having herniated disk.. She is to have adjustments, injections with Sarapim, postural therapy. Did an MRI which did show a bulging disks with mild foraminal stenosis of L3-4 and L4-5. But no central stenosis. Does have some facet arthrosis as well at those levels. No numbness in the leg or foot. Worse with shoes on the feet. And seems to affect the thigh for some reason. Now getting trigger points on the thigh as she has the chiropractor treatments and some kind of vagal nerve stimulator Went on vacation that she felt a lot better for that week Developing tingling in the body and then the racing heart Heart rate could not be counted then down to 130 on November 13 When she does anything she goes up to 120 Will feel good and then it will kick in Feels regular BP has been high up to 180/110 To ER at [facility] Normal labs - Troponin, CBC, BMP, TSH, EKG did show incomplete LBBB Feels nervous with that due to sons unexpectedly in the past CXR showed prominent pulmonary arteries Has been noting burning in mouth for months getting worse with this. 12/07/23 Since her last visit she has not done any of the chiropractor treatment for the heart but did have a treatment for a rib pain. She did the Holter but just turned that in. Was feeling better up till about 4 days ago. Then started have pain in the leg and back and the tingling started and anxious feeling. BP and heart rate has been good and did not take metoprolol. The last 2 nights has been waking and feeling jittery and shaking. Feels like she could jump out of skin. Feels she would just like to have it settle down. We discussed last time using Ativan. Has been on Zoloft in the past. Went off due to feeling numb and could not grieve. Will consider Cymbalta at 20 as she is concerned it is not too strong. Was only on 25 of Zoloft. Also will add Ativan 0.5 prn. She is reluctant to go on anything long-term. But rather than changing would prefer Zoloft. Continues to have pain in the right hip with triggers. Chiropractor has not helped. Will try US for triggers. Consider pain medicine or PT. MRI shows mild foraminal stenosis. Did have postural therapy with chiropractor. 12/30/23 Has continued to lose weight from 100 down to 90 with BMI of 17. She feels she is eating less. But even with eating she will lose weight. Some nausea with Zoloft. She has stopped that a couple times.. Made her shaky and jittery and tingling and raised BP. Symptoms started about 5 days in each time. She is still on Ativan at 0.25 mg bid. Then Tylenol for discomfort in the buttocks and back. Ativan does take away the symptoms of high BP and pulses as well as the burning in the mouth. Labs as above at [facility]. She is very concerned about polypharmacy. Metoprolol no longer as pulse has settled. Skin feels numb. Does not turn red. And off of the Zoloft the BP does not get as high. Still in 140s and 150 with normal diastolics in AM. Jittery inside She feels that it is more than anxiety. She does not want to be this way she says. She would like to see Dr Garrett and I would agree with that to look as adrenogenic causes. Would like to check labs again. She has the triggers in the glutes. To see chiropractor for laser treatment. 01/23/24 Having good and bad days. Cannot go without the Ativan. 1/2 bid and occasionally a third. She has lost another pound. Will have good spells for hours at a time. Still eating. Tylenol for pain several times a day for pain and helps the tingling and jittery feeling. Ativan helps the burning in the mouth. She is to see Dr Garrett on February 14. She started to Buspar last time and has increased to 5 bid. Appetite still has not been good. She eats when hungry and varies from day to day. BP has been good when on Ativan. When she is jittery will go up to 140. B12 and magnesium and CMP and CBC She is getting laser treatment to the buttocks but not helping like she hope. For now considering Ativan temporary so no CSA or UDS but will need if not able to taper soon Will hold on mammogram and fluvax for now. 02/22/24 She was not able to tolerate the higher dose of the Buspar. Got very jittery. Tolerates the lower dose. Not sure if it is helping. Cannot go without the Ativan. BP and pulse went up. She does need the Ativan 1/2 of 0.5 tid. Has tried Zoloft and got more weak and jittery and emotional. When it is time for Ativan she finds pain increases, burning in mouth, electrical feeling, numb in arms. Dr Garrett on February 14. No cardiac issue identified. Feels tachycardia due to anxiety as Holter, ECHO unremarkable. Will go with neurology referral for the hip pain and the dysesthesia. Has spinal stenosis. She feels that if the hip could be better then he anxiety would be better. So will also send to PT. Continues to lose weight. Was worse with Buspar on high doses. Will wait on UDS to see if she can get off of medication. Will discuss behavioral access clinic. She is wanting to try something else for anxiety So will try her on Effexor as a SNRI She tried to taper off of Buspar and feels it was doing more than she thought. So back on full dose. She is on same dose of Ativan. Does not relax the muscles anymore. She has not been able to taper on Ativan so will switch to Valium to get lower doses and longer duration. The equivalent dosage would be a little about 4 mg per day. So will go with 1/2 tablet 3-4 times per day. Went up on Effexor and went OK at 75 per day so will increase again in a week to 112.5 She is down another pound Has had therapy with dry needling and so far no change Stretches do help CSA 02/22/24 I have personally reviewed the patients OARRS report. I have considered the risks of abuse, addiction and diversion. I believe it is clinically appropriate to continue to prescribe this medication. Review of Systems Objective BP 136/78 (BP Location: Left arm, Patient Position: Sitting) Pulse 81 Wt (!) 39.3 kg (86 lb 9 oz) SpO2 93% BMI 16.63 kg/m Physical Exam Constitutional: Appearance: Normal appearance. She is underweight. Cardiovascular: Rate and Rhythm: Normal rate and regular rhythm. Skin: General: Skin is warm and dry. Neurological: General: No focal deficit present. Mental Status: She is alert. Psychiatric: Mood and Affect: Mood normal. Behavior: Behavior normal. Thought Content: Thought content normal. Judgment: Judgment normal. Assessment/Plan Diagnoses and all orders for this visit: Mixed anxiety depressive disorder Other orders - Follow Up In Primary Care - Established documented in this encounter [facility] Work Phone: 03-26-2024 Instructions Aleah Villa MD - 03/26/2024 3:00 PM EST Take Valium 1 mg (1/2 of a 2 mg tablet) 3 times per day and take the extra if needed In 1 week increase the Effexor to 3 per day of 37.5 mg documented in this encounter [facility] Work Phone: 03-08-2024 History of Presen t illness Narrative Subjective Patient ID: Silvana Perea is a 63 y.o. female who presents for Follow-up (Weak and no energy). 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 Was on Prednisone for 10 days. Podiatry suggested EMG/NCT She went to chiropractor for acupuncture who did Xrays and felt having herniated disk.. She is to have adjustments, injections with Sarapim, postural therapy. Did an MRI which did show a bulging disks with mild foraminal stenosis of L3-4 and L4-5. But no central stenosis. Does have some facet arthrosis as well at those levels. No numbness in the leg or foot. Worse with shoes on the feet. And seems to affect the thigh for some reason. Now getting trigger points on the thigh as she has the chiropractor treatments and some kind of vagal nerve stimulator Went on vacation that she felt a lot better for that week Developing tingling in the body and then the racing heart Heart rate could not be counted then down to 130 on November 13 When she does anything she goes up to 120 Will feel good and then it will kick in Feels regular BP has been high up to 180/110 To ER at [facility] Normal labs - Troponin, CBC, BMP, TSH, EKG did show incomplete LBBB Feels nervous with that due to sons unexpectedly in the past CXR showed prominent pulmonary arteries Has been noting burning in mouth for months getting worse with this. 12/07/23 Since her last visit she has not done any of the chiropractor treatment for the heart but did have a treatment for a rib pain. She did the Holter but just turned that in. Was feeling better up till about 4 days ago. Then started have pain in the leg and back and the tingling started and anxious feeling. BP and heart rate has been good and did not take metoprolol. The last 2 nights has been waking and feeling jittery and shaking. Feels like she could jump out of skin. Feels she would just like to have it settle down. We discussed last time using Ativan. Has been on Zoloft in the past. Went off due to feeling numb and could not grieve. Will consider Cymbalta at 20 as she is concerned it is not too strong. Was only on 25 of Zoloft. Also will add Ativan 0.5 prn. She is reluctant to go on anything buttermaker. But rather than changing would prefer Zoloft. Continues to have pain in the right hip with triggers. Chiropractor has not helped. Will try US for triggers. Consider pain medicine or PT. MRI shows mild foraminal stenosis. Did have postural therapy with chiropractor. 12/30/23 Has continued to lose weight from 100 down to 90 with BMI of 17. She feels she is eating less. But even with eating she will lose weight. Some nausea with Zoloft. She has stopped that a couple times.. Made her shaky and jittery and tingling and raised BP. Symptoms started about 5 days in each time. She is still on Ativan at 0.25 mg bid. Then Tylenol for discomfort in the buttocks and back. Ativan does take away the symptoms of high BP and pulses as well as the burning in the mouth. Labs as above at [facility]. She is very concerned about polypharmacy. Metoprolol no longer as pulse has settled. Skin feels numb. Does not turn red. And off of the Zoloft the BP does not get as high. Still in 140s and 150 with normal diastolics in AM. Jittery inside She feels that it is more than anxiety. She does not want to be this way she says. She would like to see Dr Garrett and I would agree with that to look as adrenogenic causes. Would like to check labs again. She has the triggers in the glutes. To see chiropractor for laser treatment. 01/23/24 Having good and bad days. Cannot go without the Ativan. 1/2 bid and occasionally a third. She has lost another pound. Will have good spells for hours at a time. Still eating. Tylenol for pain several times a day for pain and helps the tingling and jittery feeling. Ativan helps the burning in the mouth. She is to see Dr Garrett on February 14. She started to Buspar last time and has increased to 5 bid. Appetite still has not been good. She eats when hungry and varies from day to day. BP has been good when on Ativan. When she is jittery will go up to 140. B12 and magnesium and CMP and CBC She is getting laser treatment to the buttocks but not helping like she hope. For now considering Ativan temporary so no CSA or UDS but will need if not able to taper soon Will hold on mammogram and fluvax for now. 02/22/24 She was not able to tolerate the higher dose of the Buspar. Got very jittery. Tolerates the lower dose. Not sure if it is helping. Cannot go without the Ativan. BP and pulse went up. She does need the Ativan 1/2 of 0.5 tid. Has tried Zoloft and got more weak and jittery and emotional. When it is time for Ativan she finds pain increases, burning in mouth, electrical feeling, numb in arms. Dr Garrett on February 14. No cardiac issue identified. Feels tachycardia due to anxiety as Holter, ECHO unremarkable. Will go with neurology referral for the hip pain and the dysesthesia. Has spinal stenosis. She feels that if the hip could be better then he anxiety would be better. So will also send to PT. Continues to lose weight. Was worse with Buspar on high doses. Will wait on UDS to see if she can get off of medication. Will discuss behavioral access clinic. She is wanting to try something else for anxiety So will try her on Effexor as a SNRI 03/08/24 She did not do well with the above but did not have Ativan tid. So went back on that and now on Effexor 37.5 daily. Buspar still at 5 mg bid. Would like to get off of that. An hour after she takes that she gets heart racing. Has not skipped a dose. She has not noted any side effects with Effexor. Will go ahead and increase that to 75 mg She has been to therapy a couple of times so far. Still feels weak with no energy She notes the pain is better with Effexor May consider Valium eventually for the Taper. Weight is stable at 84. Did get a supplement She cancelled her appointment for neurology CSA 02/22/24 I have personally reviewed the patients OARRS report. I have considered the risks of abuse, addiction and diversion. I believe it is clinically appropriate to continue to prescribe this medication. Review of Systems Objective BP 146/80 (BP Location: Left arm, Patient Position: Sitting) Pulse (!) 116 Wt (!) 39.6 kg (87 lb 6 oz) SpO2 97% BMI 16.78 kg/m Physical Exam Constitutional: Appearance: Normal appearance. She is underweight. Cardiovascular: Rate and Rhythm: Normal rate and regular rhythm. Heart sounds: No murmur heard. Pulmonary: Effort: Pulmonary effort is normal. No respiratory distress. Breath sounds: Normal breath sounds. No wheezing. Skin: General: Skin is warm and dry. Neurological: Mental Status: She is alert and oriented to person, place, and time. Psychiatric: Mood and Affect: Mood normal. Thought Content: Thought content normal. Judgment: Judgment normal. Assessment/Plan Diagnoses and all orders for this visit: Protein-calorie malnutrition, unspecified severity (Multi) Mixed anxiety depressive disorder - Follow Up In Primary Care - Established Weight loss, non-intentional documented in this encounter [facility] Work Phone: 03-08-2024 Instructions Aleah Villa MD - 03/08/2024 2:30 PM EDT Increase the Effexor to 2 a day (either together or morning and evening In a week, start skipping a dose a day of Buspar Keep on Ativan at 3 times per day Keep up the PT documented in this encounter [facility] Work Phone: 02-22-2024 History of Presen t illness Narrative Subjective Patient ID: Silvana Perea is a 63 y.o. female who presents for Follow-up. 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 Was on Prednisone for 10 days. Podiatry suggested EMG/NCT She went to chiropractor for acupuncture who did Xrays and felt having herniated disk.. She is to have adjustments, injections with Sarapim, postural therapy. Did an MRI which did show a bulging disks with mild foraminal stenosis of L3-4 and L4-5. But no central stenosis. Does have some facet arthrosis as well at those levels. No numbness in the leg or foot. Worse with shoes on the feet. And seems to affect the thigh for some reason. Now getting trigger points on the thigh as she has the chiropractor treatments and some kind of vagal nerve stimulator Went on vacation that she felt a lot better for that week Developing tingling in the body and then the racing heart Heart rate could not be counted then down to 130 on November 13 When she does anything she goes up to 120 Will feel good and then it will kick in Feels regular BP has been high up to 180/110 To ER at [facility] Normal labs - Troponin, CBC, BMP, TSH, EKG did show incomplete LBBB Feels nervous with that due to sons unexpectedly in the past CXR showed prominent pulmonary arteries Has been noting burning in mouth for months getting worse with this. 12/07/23 Since her last visit she has not done any of the chiropractor treatment for the heart but did have a treatment for a rib pain. She did the Holter but just turned that in. Was feeling better up till about 4 days ago. Then started have pain in the leg and back and the tingling started and anxious feeling. BP and heart rate has been good and did not take metoprolol. The last 2 nights has been waking and feeling jittery and shaking. Feels like she could jump out of skin. Feels she would just like to have it settle down. We discussed last time using Ativan. Has been on Zoloft in the past. Went off due to feeling numb and could not grieve. Will consider Cymbalta at 20 as she is concerned it is not too strong. Was only on 25 of Zoloft. Also will add Ativan 0.5 prn. She is reluctant to go on anything long-term. But rather than changing would prefer Zoloft. Continues to have pain in the right hip with triggers. Chiropractor has not helped. Will try US for triggers. Consider pain medicine or PT. MRI shows mild foraminal stenosis. Did have postural therapy with chiropractor. 12/30/23 Has continued to lose weight from 100 down to 90 with BMI of 17. She feels she is eating less. But even with eating she will lose weight. Some nausea with Zoloft. She has stopped that a couple times.. Made her shaky and jittery and tingling and raised BP. Symptoms started about 5 days in each time. She is still on Ativan at 0.25 mg bid. Then Tylenol for discomfort in the buttocks and back. Ativan does take away the symptoms of high BP and pulses as well as the burning in the mouth. Labs as above at [facility]. She is very concerned about polypharmacy. Metoprolol no longer as pulse has settled. Skin feels numb. Does not turn red. And off of the Zoloft the BP does not get as high. Still in 140s and 150 with normal diastolics in AM. Jittery inside She feels that it is more than anxiety. She does not want to be this way she says. She would like to see Dr Garrett and I would agree with that to look as adrenogenic causes. Would like to check labs again. She has the triggers in the glutes. To see chiropractor for laser treatment. 01/23/24 Having good and bad days. Cannot go without the Ativan. 1/2 bid and occasionally a third. She has lost another pound. Will have good spells for hours at a time. Still eating. Tylenol for pain several times a day for pain and helps the tingling and jittery feeling. Ativan helps the burning in the mouth. She is to see Dr Garrett on February 14. She started to Buspar last time and has increased to 5 bid. Appetite still has not been good. She eats when hungry and varies from day to day. BP has been good when on Ativan. When she is jittery will go up to 140. B12 and magnesium and CMP and CBC She is getting laser treatment to the buttocks but not helping like she hope. For now considering Ativan temporary so no CSA or UDS but will need if not able to taper soon Will hold on mammogram and fluvax for now. 02/22/24 She was not able to tolerate the higher dose of the Buspar. Got very jittery. Tolerates the lower dose. Not sure if it is helping. Cannot go without the Ativan. BP and pulse went up. She does need the Ativan 1/2 of 0.5 tid. Has tried Zoloft and got more weak and jittery and emotional. When it is time for Ativan she finds pain increases, burning in mouth, electrical feeling, numb in arms. Dr Garrett on February 14. No cardiac issue identified. Feels tachycardia due to anxiety as Holter, ECHO unremarkable. Will go with neurology referral for the hip pain and the dysesthesia. Has spinal stenosis. She feels that if the hip could be better then he anxiety would be better. So will also send to PT. Continues to lose weight. Was worse with Buspar on high doses. Will wait on UDS to see if she can get off of medication. Will discuss behavioral access clinic. She is wanting to try something else for anxiety So will try her on Effexor as a SNRI CSA 02/22/24 Review of Systems Objective BP 112/70 (BP Location: Left arm, Patient Position: Sitting) Pulse 83 Wt (!) 39.9 kg (88 lb) SpO2 95% BMI 16.90 kg/m Physical Exam Constitutional: Appearance: Normal appearance. She is underweight. Cardiovascular: Rate and Rhythm: Normal rate and regular rhythm. Heart sounds: No murmur heard. Pulmonary: Effort: Pulmonary effort is normal. No respiratory distress. Breath sounds: Normal breath sounds. Abdominal: General: Abdomen is flat. Bowel sounds are normal. There is no distension. Palpations: Abdomen is soft. Tenderness: There is no abdominal tenderness. There is no guarding. Musculoskeletal: General: Tenderness (right buttock area.) present. No swelling. Normal range of motion. Skin: General: Skin is warm and dry. Neurological: General: No focal deficit present. Mental Status: She is alert and oriented to person, place, and time. Psychiatric: Mood and Affect: Mood normal. Thought Content: Thought content normal. Judgment: Judgment normal. Comments: Weepy with discouragement Assessment/Plan Diagnoses and all orders for this visit: Lumbar foraminal stenosis Mixed anxiety depressive disorder - Follow Up In Primary Care - Established - busPIRone (Buspar) 5 mg tablet; Take 1 tablet (5 mg) by mouth 2 times a day. - LORazepam (Ativan) 0.5 mg tablet; Take 0.5 tablets (0.25 mg) by mouth 3 times a day. Tachycardia - busPIRone (Buspar) 5 mg tablet; Take 1 tablet (5 mg) by mouth 2 times a day. Dysesthesia documented in this encounter [facility] Work Phone: 01-23-2024 History of Presen t illness Narrative Subjective Patient ID: Silvana Perea is a 63 y.o. female who presents for Follow-up. 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 Was on Prednisone for 10 days. Podiatry suggested EMG/NCT She went to chiropractor for acupuncture who did Xrays and felt having herniated disk.. She is to have adjustments, injections with Sarapim, postural therapy. Did an MRI which did show a bulging disks with mild foraminal stenosis of L3-4 and L4-5. But no central stenosis. Does have some facet arthrosis as well at those levels. No numbness in the leg or foot. Worse with shoes on the feet. And seems to affect the thigh for some reason. Now getting trigger points on the thigh as she has the chiropractor treatments and some kind of vagal nerve stimulator Went on vacation that she felt a lot better for that week Developing tingling in the body and then the racing heart Heart rate could not be counted then down to 130 on November 13 When she does anything she goes up to 120 Will feel good and then it will kick in Feels regular BP has been high up to 180/110 To ER at [facility] Normal labs - Troponin, CBC, BMP, TSH, EKG did show incomplete LBBB Feels nervous with that due to sons unexpectedly in the past CXR showed prominent pulmonary arteries Has been noting burning in mouth for months getting worse with this. 12/07/23 Since her last visit she has not done any of the chiropractor treatment for the heart but did have a treatment for a rib pain. She did the Holter but just turned that in. Was feeling better up till about 4 days ago. Then started have pain in the leg and back and the tingling started and anxious feeling. BP and heart rate has been good and did not take metoprolol. The last 2 nights has been waking and feeling jittery and shaking. Feels like she could jump out of skin. Feels she would just like to have it settle down. We discussed last time using Ativan. Has been on Zoloft in the past. Went off due to feeling numb and could not grieve. Will consider Cymbalta at 20 as she is concerned it is not too strong. Was only on 25 of Zoloft. Also will add Ativan 0.5 prn. She is reluctant to go on anything buttermaker. But rather than changing would prefer Zoloft. Continues to have pain in the right hip with triggers. Chiropractor has not helped. Will try US for triggers. Consider pain medicine or PT. MRI shows mild foraminal stenosis. Did have postural therapy with chiropractor. 12/30/23 Has continued to lose weight from 100 down to 90 with BMI of 17. She feels she is eating less. But even with eating she will lose weight. Some nausea with Zoloft. She has stopped that a couple times.. Made her shaky and jittery and tingling and raised BP. Symptoms started about 5 days in each time. She is still on Ativan at 0.25 mg bid. Then Tylenol for discomfort in the buttocks and back. Ativan does take away the symptoms of high BP and pulses as well as the burning in the mouth. Labs as above at [facility]. She is very concerned about polypharmacy. Metoprolol no longer as pulse has settled. Skin feels numb. Does not turn red. And off of the Zoloft the BP does not get as high. Still in 140s and 150 with normal diastolics in AM. Jittery inside She feels that it is more than anxiety. She does not want to be this way she says. She would like to see Dr Garrett and I would agree with that to look as adrenogenic causes. Would like to check labs again. She has the triggers in the glutes. To see chiropractor for laser treatment. 01/23/24 Having good and bad days. Cannot go without the Ativan. 1/2 bid and occasionally a third. She has lost another pound. Will have good spells for hours at a time. Still eating. Tylenol for pain several times a day for pain and helps the tingling and jittery feeling. Ativan helps the burning in the mouth. She is to see Dr Garrett on February 14. She started to Buspar last time and has increased to 5 bid. Appetite still has not been good. She eats when hungry and varies from day to day. BP has been good when on Ativan. When she is jittery will go up to 140. B12 and magnesium and CMP and CBC She is getting laser treatment to the buttocks but not helping like she hope. For now considering Ativan temporary so no CSA or UDS but will need if not able to taper soon Will hold on mammogram and fluvax for now. Review of Systems Objective BP 130/72 (BP Location: Left arm, Patient Position: Sitting) Pulse 90 Wt (!) 40.6 kg (89 lb 8 oz) SpO2 97% BMI 17.19 kg/m Physical Exam Vitals reviewed. Constitutional: Appearance: Normal appearance. HENT: Head: Normocephalic. Eyes: Extraocular Movements: Extraocular movements intact. Conjunctiva/sclera: Conjunctivae normal. Pupils: Pupils are equal, round, and reactive to light. Neck: Vascular: No carotid bruit. Cardiovascular: Rate and Rhythm: Normal rate and regular rhythm. Pulses: Normal pulses. Heart sounds: No murmur heard. Pulmonary: Effort: Pulmonary effort is normal. No respiratory distress. Breath sounds: Normal breath sounds. Abdominal: General: Abdomen is flat. Bowel sounds are normal. Palpations: Abdomen is soft. Musculoskeletal: Cervical back: Normal range of motion and neck supple. No tenderness. Lymphadenopathy: Cervical: No cervical adenopathy. Skin: General: Skin is warm and dry. Neurological: Mental Status: She is alert and oriented to person, place, and time. Psychiatric: Mood and Affect: Mood normal. Behavior: Behavior normal. Thought Content: Thought content normal. Judgment: Judgment normal. Assessment/Plan Diagnoses and all orders for this visit: Weight loss, non-intentional - CT abdomen pelvis w IV contrast; Future Mixed anxiety depressive disorder - Follow Up In Primary Care - Established - busPIRone (Buspar) 5 mg tablet; Take 2 tablets (10 mg) by mouth 2 times a day. - Follow Up In Primary Care - Established; Future Tachycardia - busPIRone (Buspar) 5 mg tablet; Take 2 tablets (10 mg) by mouth 2 times a day. Gluteal pain documented in this encounter [facility] Work Phone: 12-30-2023 History of Presen t illness Narrative Subjective Patient ID: Silvana Perea is a 63 y.o. female who presents for Follow-up. 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 Was on Prednisone for 10 days. Podiatry suggested EMG/NCT She went to chiropractor for acupuncture who did Xrays and felt having herniated disk.. She is to have adjustments, injections with Sarapim, postural therapy. Did an MRI which did show a bulging disks with mild foraminal stenosis of L3-4 and L4-5. But no central stenosis. Does have some facet arthrosis as well at those levels. No numbness in the leg or foot. Worse with shoes on the feet. And seems to affect the thigh for some reason. Now getting trigger points on the thigh as she has the chiropractor treatments and some kind of vagal nerve stimulator Went on vacation that she felt a lot better for that week Developing tingling in the body and then the racing heart Heart rate could not be counted then down to 130 on November 13 When she does anything she goes up to 120 Will feel good and then it will kick in Feels regular BP has been high up to 180/110 To ER at [facility] Normal labs - Troponin, CBC, BMP, TSH, EKG did show incomplete LBBB Feels nervous with that due to sons unexpectedly in the past CXR showed prominent pulmonary arteries Has been noting burning in mouth for months getting worse with this. 12/07/23 Since her last visit she has not done any of the chiropractor treatment for the heart but did have a treatment for a rib pain. She did the Holter but just turned that in. Was feeling better up till about 4 days ago. Then started have pain in the leg and back and the tingling started and anxious feeling. BP and heart rate has been good and did not take metoprolol. The last 2 nights has been waking and feeling jittery and shaking. Feels like she could jump out of skin. Feels she would just like to have it settle down. We discussed last time using Ativan. Has been on Zoloft in the past. Went off due to feeling numb and could not grieve. Will consider Cymbalta at 20 as she is concerned it is not too strong. Was only on 25 of Zoloft. Also will add Ativan 0.5 prn. She is reluctant to go on anything buttermaker. But rather than changing would prefer Zoloft. Continues to have pain in the right hip with triggers. Chiropractor has not helped. Will try US for triggers. Consider pain medicine or PT. MRI shows mild foraminal stenosis. Did have postural therapy with chiropractor. 12/30/23 Has continued to lose weight from 100 down to 90 with BMI of 17. She feels she is eating less. But even with eating she will lose weight. Some nausea with Zoloft. She has stopped that a couple times.. Made her shaky and jittery and tingling and raised BP. Symptoms started about 5 days in each time. She is still on Ativan at 0.25 mg bid. Then Tylenol for discomfort in the buttocks and back. Ativan does take away the symptoms of high BP and pulses as well as the burning in the mouth. Labs as above at [facility]. She is very concerned about polypharmacy. Metoprolol no longer as pulse has settled. Skin feels numb. Does not turn red. And off of the Zoloft the BP does not get as high. Still in 140s and 150 with normal diastolics in AM. Jittery inside She feels that it is more than anxiety. She does not want to be this way she says. She would like to see Dr Garrett and I would agree with that to look as adrenogenic causes. Would like to check labs again. She has the triggers in the glutes. To see chiropractor for laser treatment. Review of Systems Objective BP 134/80 (BP Location: Left arm, Patient Position: Sitting) Pulse 77 Wt (!) 41 kg (90 lb 6 oz) SpO2 98% BMI 17.36 kg/m Physical Exam Constitutional: Appearance: Normal appearance. She is underweight. Cardiovascular: Rate and Rhythm: Normal rate and regular rhythm. Heart sounds: No murmur heard. Pulmonary: Effort: Pulmonary effort is normal. No respiratory distress. Breath sounds: Normal breath sounds. Musculoskeletal: General: Tenderness (right gluteus) present. Skin: General: Skin is warm and dry. Neurological: General: No focal deficit present. Mental Status: She is alert and oriented to person, place, and time. Psychiatric: Mood and Affect: Mood normal. Behavior: Behavior normal. Thought Content: Thought content normal. Judgment: Judgment normal. Assessment/Plan Diagnoses and all orders for this visit: Tachycardia - Referral to Cardiology; Future - CBC; Future - Comprehensive Metabolic Panel; Future - Magnesium; Future - busPIRone (Buspar) 5 mg tablet; Take 1 tablet (5 mg) by mouth 2 times a day. - Vitamin B12; Future Mixed anxiety depressive disorder - Referral to Cardiology; Future - CBC; Future - Comprehensive Metabolic Panel; Future - Magnesium; Future - busPIRone (Buspar) 5 mg tablet; Take 1 tablet (5 mg) by mouth 2 times a day. - Vitamin B12; Future - Follow Up In Primary Care - Established; Future Blood pressure elevated without history of HTN - Referral to Cardiology; Future documented in this encounter [facility] Work Phone: 11-23-2023 History of Presen t illness Narrative Subjective Patient ID: Silvana Perea is a 63 y.o. female who presents for Follow-up (ER for elevated BP, fast heart rate, shaky). 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 Was on Prednisone for 10 days. Podiatry suggested EMG/NCT She went to chiropractor for acupuncture who did Xrays and felt having herniated disk.. She is to have adjustments, injections with Sarapim, postural therapy. Did an MRI which did show a bulging disks with mild foraminal stenosis of L3-4 and L4-5. But no central stenosis. Does have some facet arthrosis as well at those levels. No numbness in the leg or foot. Worse with shoes on the feet. And seems to affect the thigh for some reason. Now getting trigger points on the thigh as she has the chiropractor treatments and some kind of vagal nerve stimulator Went on vacation that she felt a lot better for that week Developing tingling in the body and then the racing heart Heart rate could not be counted then down to 130 on November 13 When she does anything she goes up to 120 Will feel good and then it will kick in Feels regular BP has been high up to 180/110 To ER at [place] Normal labs - Troponin, CBC, BMP, TSH, EKG did show incomplete LBBB Feels nervous with that due to sons unexpectedly in the past CXR showed prominent pulmonary arteries Has been noting burning in mouth for months getting worse with this. Review of Systems Objective BP 138/90 (BP Location: Left arm, Patient Position: Sitting) Pulse 86 Ht 1.537 m (5' 0.5) Wt (!) 42.9 kg (94 lb 9 oz) SpO2 99% BMI 18.16 kg/m Physical Exam Vitals reviewed. Constitutional: General: She is not in acute distress. Appearance: Normal appearance. HENT: Head: Normocephalic. Right Ear: Tympanic membrane, ear canal and external ear normal. Left Ear: Tympanic membrane, ear canal and external ear normal. Nose: Nose normal. Mouth/Throat: Mouth: Mucous membranes are moist. Pharynx: Oropharynx is clear. Eyes: Extraocular Movements: Extraocular movements intact. Conjunctiva/sclera: Conjunctivae normal. Pupils: Pupils are equal, round, and reactive to light. Neck: Vascular: No carotid bruit. Cardiovascular: Rate and Rhythm: Normal rate and regular rhythm. Pulses: Normal pulses. Heart sounds: Normal heart sounds. No murmur heard. Pulmonary: Effort: Pulmonary effort is normal. No respiratory distress. Breath sounds: Normal breath sounds. Abdominal: General: Abdomen is flat. Bowel sounds are normal. There is no distension. Palpations: Abdomen is soft. There is no mass. Tenderness: There is no abdominal tenderness. Musculoskeletal: General: No swelling, tenderness or deformity. Normal range of motion. Cervical back: Normal range of motion and neck supple. No tenderness. Lymphadenopathy: Cervical: No cervical adenopathy. Skin: General: Skin is warm and dry. Findings: No rash. Neurological: General: No focal deficit present. Mental Status: She is alert and oriented to person, place, and time. Sensory: No sensory deficit. Motor: No weakness. Coordination: Coordination normal. Deep Tendon Reflexes: Reflexes normal. Psychiatric: Mood and Affect: Mood normal. Behavior: Behavior normal. Thought Content: Thought content normal. Judgment: Judgment normal. Assessment/Plan Diagnoses and all orders for this visit: Pulmonary artery abnormality ([facility]) - Transthoracic Echo Complete; Future Tachycardia - Holter or Event Carpenter; Future - metoprolol succinate XL (Toprol-XL) 25 mg 24 hr tablet; Take 1 tablet (25 mg) by mouth once daily. Do not crush or chew. Sciatica of right side documented in this encounter [facility] Work Phone: 11-23-2023 Instructions Aleah Villa MD - 11/23/2023 9:30 AM EDT I wont you to get the Holter to monitor the rhythm. Until that is done or you have several racing heart spells, only take the metoprolol if a spell will not settle down after 30 minutes. If no response in 2 hours can take a second dose. For the thigh use heat for now. For the burning in the mouth try a B Complex vitamin documented in this encounter [facility] Work Phone: 07-11-2023 History of Presen t illness Narrative Subjective Reason for Visit: Silvana Perea is an 62 y.o. female here for a Medicare Wellness visit. Past Medical, Surgical, and Family History reviewed and updated in chart. Reviewed all medications by prescribing practitioner or clinical pharmacist (such as prescriptions, OTCs, herbal therapies and supplements) and documented in the medical record. HPI Calcium oxalate crystals in urine - drinking a lot of fluids. No special meds. Last stone spring 2017 and then 10 years before that. Good GFR and CBC Dense breast tissue on mammogram - Normal mammogram 01/29/22 Hyperlipidemia NOS - Med works well without side effects. No Chest pain, Dyspnea, palpitations, numbness, weakness, edema, claudications, or double vision/ loss of vision. FMH positive so got CACS 31. 10 year risk 3.8% Feels exercise not as consistent. Multiple lung nodules - all under 5 mm and she is not at risk. No further needed. Osteoporosis - on Fosamax No broken bones. No falls DEXA 01/22/21. T score at hip -4.0. She is on Vitamin D, but calcium constipates her. Is on feet a lot. Recurrent UTI - She will get on Cipro about 2-3 per year for a couple days Colon Cancer - scope in 2013. Dr Evans. Due this year. She will think about Cologuard DEXA 01/22/21 Mammogram 01/21/23 Prevnar 20 will get when 63. Living Will and DPA yes and son Patient Care Team: Aleah Villa MD as PCP - General Review of Systems Objective Vitals: BP 116/70 (BP Location: Left arm, Patient Position: Sitting) Pulse 72 Ht 1.575 m (5' 2) Wt 45.4 kg (100 lb) SpO2 99% BMI 18.29 kg/m Physical Exam Vitals reviewed. Constitutional: General: She is not in acute distress. Appearance: Normal appearance. HENT: Head: Normocephalic. Right Ear: Tympanic membrane, ear canal and external ear normal. Left Ear: Tympanic membrane, ear canal and external ear normal. Nose: Nose normal. Mouth/Throat: Mouth: Mucous membranes are moist. Pharynx: Oropharynx is clear. Eyes: Extraocular Movements: Extraocular movements intact. Conjunctiva/sclera: Conjunctivae normal. Pupils: Pupils are equal, round, and reactive to light. Neck: Vascular: No carotid bruit. Cardiovascular: Rate and Rhythm: Normal rate and regular rhythm. Pulses: Normal pulses. Heart sounds: Normal heart sounds. No murmur heard. Pulmonary: Effort: Pulmonary effort is normal. No respiratory distress. Breath sounds: Normal breath sounds. Abdominal: General: Abdomen is flat. Bowel sounds are normal. There is no distension. Palpations: Abdomen is soft. There is no mass. Tenderness: There is no abdominal tenderness. Musculoskeletal: Cervical back: Normal range of motion and neck supple. No tenderness. Lymphadenopathy: Cervical: No cervical adenopathy. Skin: General: Skin is warm and dry. Findings: No rash. Neurological: General: No focal deficit present. Mental Status: She is alert and oriented to person, place, and time. Psychiatric: Mood and Affect: Mood normal. Thought Content: Thought content normal. Judgment: Judgment normal. Assessment/Plan Problem List Items Addressed This Visit Hyperlipidemia Relevant Medications atorvastatin (Lipitor) 20 mg tablet Osteoporosis Relevant Medications alendronate (Fosamax) 70 mg tablet Other Relevant Orders XR DEXA bone density Recurrent UTI Relevant Medications ciprofloxacin (Cipro) 250 mg tablet Other Visit Diagnoses Screening mammogram, encounter for - Primary Relevant Orders BI mammo bilateral screening tomosynthesis documented in this encounter [facility] Work Phone: 01-25-2023 Note 71 Date of Procedure: 01/25/2023 Pathologist: [facility], Cytology Date Reported: 02/08/2023 Date Received: 01/25/2023 Submitting Physician: SILVANA L. LANDRY, FIELD COORDINATOR FINAL CYTOLOGICAL INTERPRETATION A. THINPREP PAP CERVICAL: Specimen adequacy: SATISFACTORY FOR EVALUATION. Quality Indicator: Endocervical/transformation zone component is present. General Categorization: NEGATIVE FOR INTRAEPITHELIAL LESION OR MALIGNANCY. Descriptive Interpretation: CELLULAR CHANGES CONSISTENT WITH ATROPHY. HIGH RISK HPV TEST RESULT: HPV GENOTYPE 16 NEGATIVE HPV GENOTYPE 18 NEGATIVE HPV GENOTYPE OTHER NEGATIVE Reference Range: Negative Slide(s) initially screened by a Tank Storage Supervisor at [facility], [address] [place], [place] [id number] QC review performed at [facility], [address], [place] [address] Testing for high-risk (HR) type of human papilloma virus (HPV) is performed by the Brunilda peggy HPV Test. The peggy HPV Test is a qualitative polymerase chain reaction that amplifies DNA of HPV16, HPV18 and 12 other high-risk HPV types (31, 33, 35, 39, 45, 51, 52, 56, 58, 59, 66, and 68) associated with cervical cancer and its precursor lesions. A positive result indicates the presence of HPV DNA due to one or more of the 14 genotypes: 16, 18, 31, 33, 35, 39, 45, 51, 52, 56, 58, 59, 66, and 68. Negative results indicate HPV DNA concentrations are undetectable or below the pre-set threshold for detection. False negative results may be associated with unoptimized sampling. A negative HR HPV result does not exclude the possibility of future cytologic HSIL or underlying CIN2-3 or cancer. This test is approved for cervical specimens by the US Food and Drug Administration. Results of this test should be interpreted in conjunction with the patient?s Pap test results. Please refer to ASCCP current guidelines for the use of HPV DNA testing, result interpretation, and patient management. The performance of this test was verified by the Molecular Diagnostic Laboratory at [facility]. The lab is certified under the Clinical Laboratory Amendments of 1988 (CLIA 88) as qualified to perform high complexity clinical laboratory testing. Electronically Signed Out By [facility], Cytology//LSM/SLD By the signature on this report, the individual or group listed as making the Final Interpretation/Diagnosis certifies that they have reviewed this case. Diagnostic interpretation performed at [facility] [address] [place] [id number] Educational Note: Cervical cytology is a screening procedure primarily for squamous cancers and precursors and has associated false-negative and false-positive results as evidenced by published data. Your patient?s test should be interpreted in this context, together with patient?s history and clinical findings. Regular sampling and follow-up of unexplained clinical signs and symptoms are recommended to minimize false negative results. Clinical History Date of Last Menstrual Period: N/A Other Clinical Conditions: COTEST HPV(Genotype) except for ASC-H, HSIL, Carcinoma - Include HPV Genotype testing Bloody Prep - Reprocessed with addition of Glacial Acetic Acid EPIC Order Description: GYNECOLOGIC CYTOLOGY CONSULTATION Specimen Information: ThinPrep, CERVIX, SCREENING Clinical Diagnosis History: Z01.419-Encounter for gynecological examination (general) (routine) without abnormal findings Perform HPV HR test? Cotest (if Negative, ASCUS, or LSIL) Include HPV Genotype? Yes Source of Specimen A: THINPREP PAP CERVICAL [facility] Department of Pathology [id number] [place] [address] Comment on above: Performed By: #### C #### 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 Current Complaints: None. Personal Health Questionnaire Reviewed: yes Gynecologic History LMP Ablation 2009 Contraception: post menopausal status Last Pap: 02/04/21 Results: normal Last Mammogram: 01/21/23 Results: normal Healthy Diet: yes Reg. Dental Visit : yes Vision Care : yes Exercise : yes Immunization Up to Date : yes Colonoscopy : yes 2013 Will be due next year. DEXA : yes 01/22/21 Obstetric History : 2 Para: 2 AB: 0 Subjective Patient ID: Silvana Perea is a 62 y.o. female who presents for Well Women Visit. Here for Routine women's health visit. No concerns Had Mammogram done 01/21/23 at [place]. Results reviewed/normal Due for DEXA, but would like to wait and have it done next year. Continuing on Fosamax, weight bearind exercise and calcium intake Review of Systems Constitutional: Negative. HENT: Negative. Respiratory: Negative. Cardiovascular: Negative. Gastrointestinal: Negative. Skin: Negative. Psychiatric/Behavioral: Negative. Objective Physical Exam Constitutional: Appearance: Normal appearance. HENT: Head: Normocephalic. Right Ear: Tympanic membrane normal. Left Ear: Tympanic membrane normal. Nose: Nose normal. Mouth/Throat: Pharynx: Oropharynx is clear. Eyes: Conjunctiva/sclera: Conjunctivae normal. Cardiovascular: Rate and Rhythm: Normal rate and regular rhythm. Heart sounds: Normal heart sounds. Pulmonary: Effort: Pulmonary effort is normal. Breath sounds: Normal breath sounds. Chest: Breasts: Right: No inverted nipple, mass or nipple discharge. Left: No inverted nipple, mass or nipple discharge. Abdominal: General: Bowel sounds are normal. Palpations: Abdomen is soft. Genitourinary: Labia: Right: No rash, tenderness or lesion. Left: No rash, tenderness or lesion. Vagina: Normal. Cervix: No cervical motion tenderness, discharge, friability or lesion. Cervical bleeding: dexa. Uterus: Normal. Adnexa: Right adnexa normal and left adnexa normal. Comments: Vaginal atrophy Os closed Musculoskeletal: Cervical back: Neck supple. Skin: General: Skin is warm and dry. Neurological: Mental Status: She is alert. Psychiatric: Mood and Affect: Mood normal. Assessment/Plan Diagnoses and all orders for this visit: Encounter for gynecological examination (general) (routine) without abnormal findings - THINPREP PAP TEST Osteoporosis, unspecified osteoporosis type, unspecified pathological fracture presence - alendronate (Fosamax) 70 mg tablet; TAKE 1 TABLET ONCE WEEKLY with full glass of water on empty stomach first thing in the morning. To stay upright and avoid eating for 30 min. - XR DEXA bone density; Future Screening mammogram for breast cancer - BI mammo bilateral screening tomosynthesis; Future Other orders - Follow Up In Primary Care - Health Maintenance; Future Prefers to get her DEXA next year with her Mammogram Recent Mammogram at [place] normal Pap done Follow up yearly for women's health documented in this encounter [facility] Work Phone: 12-07-2022 History of Presen t illness Narrative Subjective Patient ID: Silvana Murphy Sedane is a 62 y.o. female who presents for Earache (Pt c/o left ear pain and fluid in the ear.). Earache Pertinent negatives include no sore throat. Yesterday sore not throbbing and worse yesterday Last week while walking had a deer fly Swelling Had a LN the next day for 2 to 3 days swollen but now better Fullness in the left ear Took decongestant but 1 hour Temp neg vitals normal Had rapid and better with deep breathes Sudafed PE HR 130 bu asymptomatc no cp no sob no lightheadednss or dizziness No hearing loss Warmth No drainage On loratadine for seasonal allergies Review of Systems HENT: Positive for ear pain. Negative for sinus pressure, sinus pain, sneezing, sore throat and tinnitus. Objective BP 128/70 Pulse 67 Ht 1.562 m (5' 1.5) Wt 45.3 kg (99 lb 12.8 oz) SpO2 97% BMI 18.55 kg/m Physical Exam Vitals reviewed. Constitutional: Appearance: Normal appearance. HENT: Head: Normocephalic and atraumatic. Right Ear: Tympanic membrane, ear canal and external ear normal. There is no impacted cerumen. Left Ear: Tympanic membrane, ear canal and external ear normal. There is no impacted cerumen. Ears: Comments: Difficult to get mobility of left TM has scarring ? Serous otitis kumar and rinne are normal Nose: Nose normal. Mouth/Throat: Mouth: Mucous membranes are moist. Pharynx: Oropharynx is clear. No oropharyngeal exudate or posterior oropharyngeal erythema. Eyes: Conjunctiva/sclera: Conjunctivae normal. Pulmonary: Effort: Pulmonary effort is normal. Breath sounds: Normal breath sounds. Musculoskeletal: Cervical back: Neck supple. Skin: General: Skin is warm and dry. Neurological: General: No focal deficit present. Mental Status: She is alert and oriented to person, place, and time. Psychiatric: Mood and Affect: Mood normal. Behavior: Behavior normal. Thought Content: Thought content normal. Judgment: Judgment normal. Assessment/Plan Diagnoses and all orders for this visit: Dysfunction of left eustachian tube Recommend inhaled nasal steroid documented in this encounter [facility] Work Phone: 01-16-2020 History of Presen t illness Narrative Last Visit: Last Visit: 01/16/2020.Interval Events: Past medical, surgical, social and family history reviewed and updated.Interval Care: She has regular dental visits. She receives routine vision care. Immunizations up to date.Lifestyle: She consumes a diverse and healthy diet. She does not have any weight concerns. She denies alcohol use. She does not use tobacco. She is sexually active. She is monogamous with a male partner and Same partner x 42 years.Exercise: 7 times a week. Walking. Walks about 3 miles daily.Female Health: Date of last period: Ablation 2009. : 2. full term: 2. The patient is postmenopausal. Date of last pap smear: 11/27/18. Previous pap tests in [place]. Has them done yearly and have been good. Discussed new guidelines for pap screens every 3 years if 3 normal paps in the previous 10 year and prefers to have it done today.Screening Mammogram: Date of Last Screening Mammogram: 01/22/21.Screening DEXA: Date of last DEXA: 01/22/21.Screening Colonoscopy: Date of last colonoscopy: 2013 in [place].Lifestyle Safety Elements: uses seat belts.There are no concerns today.The patient's health since the last visit is described as good.Additional History: Discussed her osteoporosis and will start Fosamax. [facility] Work Phone: 01-16-2020 History of Presen t illness Narrative Last Visit: Last Visit: 01/16/2020.Interval Events: Past medical, surgical, social and family history reviewed and updated.Interval Care: She has regular dental visits. She receives routine vision care. Immunizations up to date.Lifestyle: She consumes a diverse and healthy diet. She does not have any weight concerns. She denies alcohol use. She does not use tobacco. She is sexually active. She is monogamous with a male partner and Same partner x 42 years.Exercise: 7 times a week. Walking. Walks about 3 miles daily.Female Health: Date of last period: Ablation 2009. : 2. full term: 2. The patient is postmenopausal. Date of last pap smear: 11/27/18. Previous pap tests in [place]. Has them done yearly and have been good. Discussed new guidelines for pap screens every 3 years if 3 normal paps in the previous 10 year and prefers to have it done today.Screening Mammogram: Date of Last Screening Mammogram: 01/22/21.Screening DEXA: Date of last DEXA: 01/22/21.Screening Colonoscopy: Date of last colonoscopy: 2013 in [place].Lifestyle Safety Elements: uses seat belts.There are no concerns today.The patient's health since the last visit is described as good.Additional History: Discussed her osteoporosis and will start Fosamax. -[facility] Work Phone: 06-18-2018 History of Presen t illness Narrative Anxiety and depression - doing well. She had been on medications for years. Then her son 3 years ago. But has now been able to wean off of it for almost 3 yearsCalcium oxalate crystals in urine - drinking a lot of fluids. No special meds. Last spring and then 10 years before that. .Dense breast tissue on mammogram - Normal mammogram 01/22/21Hyperlipidemia NOS - Med works well without side effects. No Chest pain, Dyspnea, palpitations, numbness, weakness, edema, claudications, or double vision/ loss of vision. FMH positive so got CACS 31. 10 year risk 4.5%Multiple lung nodules - all under 5 mm and she is not at risk. No further needed.Osteoporosis - on Fosamax No broken bones. No falls DEXA 01/22/21. T score at hip -4.0. She is on Vitamin D, but calcium constipates her. Is on feet a lot.Recurrent UTI - She will get on Cipro about 2-3 per year for a couple daysColon Cancer - to get Hemoccult . [facility]-2018 History of Presen t illness Narrative Anxiety and depression - doing well. She had been on medications for years. Then her son 4 years ago. But has now been able to wean off of it for almost 3 years. Had a bad flight so wondering if something for that but does not want. Can try anti motion sickness.Calcium oxalate crystals in urine - drinking a lot of fluids. No special meds. Last spring and then 10 years before that. Good GFR and CBCDense breast tissue on mammogram - Normal mammogram 01/29/22Hyperlipidemia NOS - Med works well without side effects. Up some this year to 201/122. No Chest pain, Dyspnea, palpitations, numbness, weakness, edema, claudications, or double vision/ loss of vision. FMH positive so got CACS 31. 10 year risk 4.5% Feels exercise not as consistent.Multiple lung nodules - all under 5 mm and she is not at risk. No further needed.Osteoporosis - on Fosamax No broken bones. No falls DEXA 01/22/21. T score at hip -4.0. She is on Vitamin D, but calcium constipates her. Is on feet a lot.Recurrent UTI - She will get on Cipro about 2-3 per year for a couple daysColon Cancer - scope in 2013.Rotator Cuff weakness. Good strength. Impingement. So will do exercises -[facility] Work Phone: Evaluation note No assessment inform ation available [facility] Work Phone: Evaluation note Diagnosis Dysfunction of left eustachian tube- Primary documented in this encounter [facility] Work Phone: Evaluation note* Diagnosis Encounter for gynecological examination (general) (routine) without abnormal findings- Primary Osteoporosis, unspecified osteoporosis type, unspecified pathological fracture presence Screening mammogram for breast cancer documented in this encounter [facility] Work Phone: Evaluation note* Diagnosis Routine general medical examination at health care facility- Primary Routine general medical examination at a health care facility Osteoporosis, unspecified osteoporosis type, unspecified pathological fracture presence Recurrent UTI Urinary tract infection, site not specified Hyperlipidemia, unspecified hyperlipidemia type Screening mammogram, encounter for documented in this encounter [facility] Work Phone: Evaluation note* Diagnosis Lumbar foraminal stenosis- Primary Mixed anxiety depressive disorder Tachycardia Unspecified tachycardia Dysesthesia Disturbance of skin sensation documented in this encounter [facility] Work Phone: Evaluation note* Diagnosis Protein-calorie malnutrition, unspecified severity (Multi)- Primary Mixed anxiety depressive disorder Weight loss, non-intentional Loss of weight documented in this encounter [facility] Work Phone: Evaluation note* Diagnosis Gluteal pain- Primary Mixed anxiety depressive disorder documented in this encounter [facility] Work Phone: [phone] note* Diagnosis Mixed anxiety depressive disorder documented in this encounter [facility] Work Phone: [phone] note* Diagnosis Other intervertebral disc displacement, lumbar region documented in this encounter [facility] Work Phone: [phone] note* Diagnosis Pulmonary artery abnormality (HHS-HCC)- Primary Tachycardia Unspecified tachycardia Sciatica of right side documented in this encounter [facility] Work Phone: [phone] note* Diagnosis Tachycardia Unspecified tachycardia documented in this encounter [facility] Work Phone: [phone] note* Diagnosis Tachycardia- Primary Unspecified tachycardia Mixed anxiety depressive disorder Blood pressure elevated without history of HTN documented in this encounter [facility] Work Phone: [phone] note* Diagnosis Weight loss, non-intentional- Primary Loss of weight Mixed anxiety depressive disorder Tachycardia Unspecified tachycardia Gluteal pain documented in this encounter [facility] Work Phone: [phone] note* Diagnosis Weight loss, non-intentional Loss of weight documented in this encounter [facility] Work Phone: [phone] note* Diagnosis Weight loss, non-intentional- Primary Loss of weight Mixed anxiety depressive disorder Lumbar foraminal stenosis Gluteal pain documented in this encounter [facility] Work Phone: [phone] note* Diagnosis Lumbar foraminal stenosis- Primary Mixed anxiety depressive disorder Tachycardia Unspecified tachycardia documented in this encounter [facility] Work Phone: [phone] note* Diagnosis Routine general medical examination at health care facility- Primary Routine general medical examination at a health care facility Osteoporosis, unspecified osteoporosis type, unspecified pathological fracture presence Hyperlipidemia, unspecified hyperlipidemia type Lumbar foraminal stenosis Mixed anxiety depressive disorder Tachycardia Unspecified tachycardia Encounter for screening mammogram for breast cancer Menopause Symptomatic menopausal or female climacteric states documented in this encounter [facility] Work Phone: [phone] note* Diagnosis Routine general medical examination at health care facility- Primary Routine general medical examination at a health care facility Osteoporosis, unspecified osteoporosis type, unspecified pathological fracture presence Hyperlipidemia, unspecified hyperlipidemia type Lumbar foraminal stenosis Mixed anxiety depressive disorder Tachycardia Unspecified tachycardia Encounter for screening mammogram for breast cancer Menopause Symptomatic menopausal or female climacteric states Dysuria- Primary documented in this encounter [facility] Work Phone: Reason for referral (narrative)* Consultation (Routine) - Authorized Specialty Diagnoses / Procedures Referred By Contac t Referred To Contact Primary Care Procedures Follow Up In Primary Care - Health Maintenance Silvana Mancilla APRN-CNP [address] [facility] [place] [address] Referral ID Status Reason Start Date Expiration Date V isits Requested Visits Authorized [id number] Authorized 01/25/2023 07/24/2023 1 1 * Imaging (Routine) - Authorized Specialty Diagnoses / Procedures Referred By Contac t Referred To Contact Radiology Diagnoses Osteoporosis, unspecified osteoporosis type, unspecified pathological fracture presence Procedures XR DEXA bone density Silvana Mancilla APRN-CNP [address] [facility], [place] [id number] Referral ID Status Reason Start Date Expiration Date Visits Requested Visits Authorized [id number] Authorized Perform Procedure 01/25/2023 07/24/2023 1 1 * Imaging (Routine) - Authorized Specialty Diagnoses / Procedures Referred By Contac t Referred To Contact Radiology Diagnoses Screening mammogram for breast cancer Procedures BI mammo bilateral screening tomosynthesis Silvana Mancilla APRN-CNP [address] [facility], [place] [id number] Referral ID Status Reason Start Date Expiration Date Visits Requested Visits Authorized [id number] Authorized Perform Procedure 01/25/2023 07/24/2023 1 1 [facility] Work Phone: Reason for referral (narrative)* Consultation (Routine) - Authorized Specialty Diagnoses / Procedures Referred By Contac t Referred To Contact Primary Care Diagnoses Routine general medical examination at health care facility Procedures 1 Year Follow Up In Primary Care - Wellness Exam Aleah Villa MD [address] [facility], [place] [address] [place] [phone] Referral ID Status Reason Start Date Expiration Date V isits Requested Visits Authorized [id number] Authorized 07/11/2023 07/10/2024 1 1 * Imaging (Routine) - Authorized Specialty Diagnoses / Procedures Referred By Contac t Referred To Contact Radiology Diagnoses Screening mammogram, encounter for Procedures BI mammo bilateral screening tomosynthesis Aleah Villa MD [address] [facility] [place] [address] [place] [phone] Referral ID Status Reason Start Date Expiration Date Visits Requested Visits Authorized [id number] Authorized Perform Procedure 07/11/2023 07/10/2024 1 1 * Imaging (Routine) - Pending Review Specialty Diagnoses / Procedures Referred By Contac t Referred To Contact Radiology Diagnoses Osteoporosis, unspecified osteoporosis type, unspecified pathological fracture presence Procedures XR DEXA bone density Aleah Villa MD [address] [facility] [place] [address] [place] [address] Referral ID Status Reason Start Date Expiration Date Visits Requested Visits Authorized [id number] Pending Review Perform Procedure 07/11/2023 07/10/2024 1 1 [facility] Work Phone: reason for referral (narrative)* Consultation (Routine) - Authorized Specialty Diagnoses / Procedures Referred By Contac t Referred To Contact Primary Care Procedures Follow Up In Primary Care - Established Aleah Villa MD [address] [facility], [place] [address] Phone: tel: fax: Referral ID Status Reason Start Date Expiration Date V isits Requested Visits Authorized [id number] Authorized 03/08/2024 03/08/2025 1 1 [facility] Work Phone: reason for referral (narrative)* Consultation (Routine) - Authorized Specialty Diagnoses / Procedures Referred By Contac t Referred To Contact Primary Care Procedures Follow Up In Primary Care - Established Aleah Villa MD [address] [facility], [place] [address] Referral ID Status Reason Start Date Expiration Date V isits Requested Visits Authorized [id number] Authorized 11/23/2023 11/22/2024 1 1 * CV Imaging (Routine) - Pending Review Specialty Diagnoses / Procedures Referred By Contac t Referred To Contact Cardiology Diagnoses Pulmonary artery abnormality (HHS-HCC) Procedures Transthoracic Echo Complete VA ECHO TTHRC R-T 2D W/WOM-MODE COMPL SPEC&COLR D Aleah Villa MD [address] [facility], [place] [address] Referral ID Status Reason Start Date Expiration Date Visits Requested Visits Authorized [id number] Pending Review Perform Procedure 11/23/2023 11/22/2024 1 1 * Cardiac Stress Testing (Routine) - Pending Review Specialty Diagnoses / Procedures Referred By Contac t Referred To Contact Cardiology Diagnoses Tachycardia 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 Aleah Villa MD [address] [facility] [place] [address] [place] [address] Referral ID Status Reason Start Date Expiration Date V isits Requested Visits Authorized [id number] Pending Review 11/23/2023 11/22/2024 1 1 [facility] Work Phone: Regwcx for referral (narrative)* Consultation (Routine) - Authorized Specialty Diagnoses / Procedures Referred By Contac t Referred To Contact Primary Care Diagnoses Mixed anxiety depressive disorder Procedures Follow Up In Primary Care - Established Aleah Villa MD [address] [facility], [place] [phone] Referral ID Status Reason Start Date Expiration Date V isits Requested Visits Authorized [id number] Authorized 12/30/2023 12/29/2024 1 1 * Consultation (Routine) - Authorized Specialty Diagnoses / Procedures Referred By Contac t Referred To Contact Cardiology Diagnoses Tachycardia Mixed anxiety depressive disorder Blood pressure elevated without history of HTN Aleah Villa MD [address] [facility], [place] [phone] Juan Garrett MD [address] [facility] [address] [address] Referral ID Status Reason Start Date Expiration Date Visits Requested Visits Authorized [id number] Authorized Specialty Services Required 12/30/2023 12/29/2024 1 1 [facility] Work Phone: Reunmp for referral (narrative)* Consultation (Routine) - Authorized Specialty Diagnoses / Procedures Referred By Contac t Referred To Contact Primary Care Diagnoses Mixed anxiety depressive disorder Procedures Follow Up In Primary Care - Established Aleah Villa MD [address] [facility], [place] [address] Referral ID Status Reason Start Date Expiration Date V isits Requested Visits Authorized [id number] Authorized 01/23/2024 01/22/2025 1 1 * Imaging (Routine) - Authorized Specialty Diagnoses / Procedures Referred By Contac t Referred To Contact Radiology Diagnoses Weight loss, non-intentional Procedures CT abdomen pelvis w IV contrast Aleah Villa MD [address] [facility], [place] [phone] Referral ID Status Reason Start Date Expiration Date Visits Requested Visits Authorized [id number] Authorized Perform Procedure 01/23/2024 01/22/2025 1 1 [facility] Work Phone: Summary Purpose Family History No Family History Records Found Mother Name Dates Details Family history of hyperlipid emia(V18.19, Z83.438) Status:Active Father Name Dates Details Family history of hyperlipid emia(V18.19, Z83.438) Status:Active Family history of cardiac di sorder(V17.49, Z82.49) Status:Active Family history of S/P CABG ( coronary artery bypass graft)(V45.81, Z95.1) Status:Active Family history of congestive heart failure(V17.49, Z82.49) Status:Active Family history of acute myoc ardial infarction(V17.3, Z82.49) Status:Active Sister Name Dates Details Family history of hyperlipid emia(V18.19, Z83.438) Status:Active Family history of malignant neoplasm of breast(V16.3, Z80.3) Status:Active Brother Name Dates Details Family history of hyperlipid emia(V18.19, Z83.438) Status:Active Mother Name Dates Details Family history of hyperlipid emia(V18.19, Z83.438) Status:Active Father Name Dates Details Family history of hyperlipid emia(V18.19, Z83.438) Status:Active Family history of cardiac di sorder(V17.49, Z82.49) Status:Active Family history of S/P CABG ( coronary artery bypass graft)(V45.81, Z95.1) Status:Active Family history of congestive heart failure(V17.49, Z82.49) Status:Active Family history of acute myoc ardial infarction(V17.3, Z82.49) Status:Active Sister Name Dates Details Family history of hyperlipid emia(V18.19, Z83.438) Status:Active Family history of malignant neoplasm of breast(V16.3, Z80.3) Status:Active Brother Name Dates Details Family history of hyperlipid emia(V18.19, Z83.438) Status:Active Mother Name Dates Details Family history of hyperlipid emia(V18.19, Z83.438) Status:Active Father Name Dates Details Family history of hyperlipid emia(V18.19, Z83.438) Status:Active Family history of cardiac di sorder(V17.49, Z82.49) Status:Active Family history of S/P CABG ( coronary artery bypass graft)(V45.81, Z95.1) Status:Active Family history of congestive heart failure(V17.49, Z82.49) Status:Active Family history of acute myoc ardial infarction(V17.3, Z82.49) Status:Active Sister Name Dates Details Family history of hyperlipid emia(V18.19, Z83.438) Status:Active Family history of malignant neoplasm of breast(V16.3, Z80.3) Status:Active Brother Name Dates Details Family history of hyperlipid emia(V18.19, Z83.438) Status:Active Family history of malignant neoplasm of prostate(V16.42, Z80.42) Status:Active Unknown Family Member Name Dates Details Family history of hyperlipid emia: Mother, Father, Sister, Brother(V18.19, Z83.438) Status:Active Family history of cardiac di sorder: Father(V17.49, Z82.49) Status:Active S/P CABG (coronary artery by pass graft): Father(V45.81, Z95.1) Status:Active Family history of congestive heart failure: Father(V17.49, Z82.49) Status:Active Family history of acute myoc ardial infarction: Father(V17.3, Z82.49) Status:Active Family history of malignant neoplasm of prostate: Brother(V16.42, Z80.42) Status:Active Family history of malignant neoplasm of breast: Sister, Paternal Cousin(V16.3, Z80.3) Status:Active Family history of lung cance r: Paternal Cousin(V16.1, Z80.1) Status:Active Unknown Family Member Name Dates Details Family history of hyperlipid emia: Mother, Father, Sister, Brother(V18.19, Z83.438) Status:Active Family history of cardiac di sorder: Father(V17.49, Z82.49) Status:Active S/P CABG (coronary artery by pass graft): Father(V45.81, Z95.1) Status:Active Family history of congestive heart failure: Father(V17.49, Z82.49) Status:Active Family history of acute myoc ardial infarction: Father(V17.3, Z82.49) Status:Active Family history of malignant neoplasm of prostate: Brother(V16.42, Z80.42) Status:Active Family history of malignant neoplasm of breast: Sister, Paternal Cousin(V16.3, Z80.3) Status:Active Family history of lung cance r: Paternal Cousin(V16.1, Z80.1) Status:Active Unknown Family Member Name Dates Details Family history of hyperlipid emia: Mother, Father, Sister, Brother(V18.19, Z83.438) Status:Active Family history of cardiac di sorder: Father(V17.49, Z82.49) Status:Active S/P CABG (coronary artery by pass graft): Father(V45.81, Z95.1) Status:Active Family history of congestive heart failure: Father(V17.49, Z82.49) Status:Active Family history of acute myoc ardial infarction: Father(V17.3, Z82.49) Status:Active Family history of malignant neoplasm of prostate: Brother(V16.42, Z80.42) Status:Active Family history of malignant neoplasm of breast: Sister, Paternal Cousin(V16.3, Z80.3) Status:Active Family history of lung cance r: Paternal Cousin(V16.1, Z80.1) Status:Active Unknown Family Member Name Dates Details Family history of hyperlipid emia: Mother, Father, Sister, Brother(V18.19, Z83.438) Status:Active Family history of cardiac di sorder: Father(V17.49, Z82.49) Status:Active S/P CABG (coronary artery by pass graft): Father(V45.81, Z95.1) Status:Active Family history of congestive heart failure: Father(V17.49, Z82.49) Status:Active Family history of acute myoc ardial infarction: Father(V17.3, Z82.49) Status:Active Family history of malignant neoplasm of prostate: Brother(V16.42, Z80.42) Status:Active Family history of malignant neoplasm of breast: Sister, Paternal Cousin(V16.3, Z80.3) Status:Active Family history of lung cance r: Paternal Cousin(V16.1, Z80.1) Status:Active Unknown Family Member Name Dates Details Family history of hyperlipid emia: Mother, Father, Sister, Brother(V18.19, Z83.438) Status:Active Family history of cardiac di sorder: Father(V17.49, Z82.49) Status:Active S/P CABG (coronary artery by pass graft): Father(V45.81, Z95.1) Status:Active Family history of congestive heart failure: Father(V17.49, Z82.49) Status:Active Family history of acute myoc ardial infarction: Father(V17.3, Z82.49) Status:Active Family history of malignant neoplasm of prostate: Brother(V16.42, Z80.42) Status:Active Family history of malignant neoplasm of breast: Sister, Paternal Cousin(V16.3, Z80.3) Status:Active Family history of lung cance r: Paternal Cousin(V16.1, Z80.1) Status:Active Family history of Alzheimer' s disease: Mother(V17.2, Z82.0) Status:Active Unknown Family Member Name Dates Details Family history of hyperlipid emia: Mother, Father, Sister, Brother(V18.19, Z83.438) Status:Active Family history of cardiac di sorder: Father(V17.49, Z82.49) Status:Active S/P CABG (coronary artery by pass graft): Father(V45.81, Z95.1) Status:Active Family history of congestive heart failure: Father(V17.49, Z82.49) Status:Active Family history of acute myoc ardial infarction: Father(V17.3, Z82.49) Status:Active Family history of malignant neoplasm of prostate: Brother(V16.42, Z80.42) Status:Active Family history of malignant neoplasm of breast: Sister, Paternal Cousin(V16.3, Z80.3) Status:Active Family history of lung cance r: Paternal Cousin(V16.1, Z80.1) Status:Active Family history of Alzheimer' s disease: Mother(V17.2, Z82.0) Status:Active Advance Directives No Advanced Directives Records Found Advance Directive Response Recorded Date/ Time Living Will No October 01, 2017 1 2:04am 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 October 01, 2017 12:04am Chief Complaint [facility] Chief Complaint and Reason for Visit Chief Complaint SCREENING Reason for Referral Specialty Diagnoses / Procedures Referred By Amanda t Referred To Contact Radiology Diagnoses Other intervertebral disc displacement, lumbar region Procedures MR lumbar spine wo IV contrast [address] [place] [address] Referral ID Status Reason Start Date Expiration Date Visits Requested Visits Authorized [id number] Pending Review Perform Procedure 11/18/2023 11/17/2024 1 1 Specialty Diagnoses / Procedures Referred By Amanda t Referred To Contact Cardiology Diagnoses Tachycardia 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 Aleah Villa MD [address] [facility] [place] [address] Referral ID Status Reason Start Date Expiration Date V isits Requested Visits Authorized [id number] Pending Review 11/23/2023 11/22/2024 1 1 Specialty Diagnoses / Procedures Referred By Contac t Referred To Contact Radiology Diagnoses Weight loss, non-intentional Procedures CT abdomen pelvis w IV contrast Aleah Villa MD [address] [facility] [place] [address] [place] [phone] Referral ID Status Reason Start Date Expiration Date Visits Requested Visits Authorized [id number] Authorized Perform Procedure 01/23/2024 01/22/2025 1 1 Additional Source Comments INFORMATION SOURCE (unrecogn ized section and content) DATE CREATED AUTHOR 12/21/2018 [facility] DATE CREATED AUTHOR AUTHOR'S ORGANIZ ATION 02/19/2021 [facility] DATE CREATED AUTHOR AUTHOR'S ORGANIZ ATION 06/18/2022 [employer] DATE CREATED AUTHOR AUTHOR'S ORGANIZ ATION 02/12/2023 [facility] DATE CREATED AUTHOR AUTHOR'S ORGANIZ ATION 02/05/2024 [facility] DATE CREATED AUTHOR AUTHOR'S ORGANIZ ATION 09/23/2024 [facility] DATE CREATED AUTHOR AUTHOR'S ORGANIZ ATION 09/24/2024 [facility] DATE CREATED AUTHOR AUTHOR'S ORGANIZ ATION 01/20/2025 [facility] DATE CREATED AUTHOR AUTHOR'S ORGANIZ ATION 01/22/2025 [facility] Ambulatory Goals (unrecognized section and content) Goals may be documented in a n alternate sectionGoals may be documented in an alternate section Reason for Visit (unrecogniz ed section and content) Reason Comments Earache Pt c/o left ear pain and fluid in the ear. Reason Comments Well Women Visit Reason Comments Medicare Annual Wellness Visit Initial Reason Comments Follow-up Specialty Diagnoses / Procedures Referred By Contac t Referred To Contact Primary Care Diagnoses Mixed anxiety depressive disorder Procedures Follow Up In Primary Care - Established Aleah Villa MD [address] [facility] [place] [address] [place] [phone] Phone: tel: fax: Referral ID Status Reason Start Date Expiration Date V isits Requested Visits Authorized [id number] Authorized 01/23/2024 01/22/2025 1 1 Reason Comments Follow-up Weak and no energy Specialty Diagnoses / Procedures Referred By Contac t Referred To Contact Primary Care Diagnoses Mixed anxiety depressive disorder Procedures Follow Up In Primary Care - Established Follow Up In Primary Care - Established Aleah Villa MD [address] [facility], [place] [phone] Phone: tel: fax: Referral ID Status Reason Start Date Expiration Date V isits Requested Visits Authorized [id number] Authorized 02/22/2024 02/21/2025 1 1 Reason Comments Follow-up Specialty Diagnoses / Procedures Referred By Contac t Referred To Contact Primary Care Procedures Follow Up In Primary Care - Established Aleah Villa MD [address] [place] [phone] Phone: tel: fax: Referral ID Status Reason Start Date Expiration Date V isits Requested Visits Authorized [id number] Authorized 03/08/2024 03/08/2025 1 1 Reason Comments Follow-up Specialty Diagnoses / Procedures Referred By Contac t Referred To Contact Primary Care Diagnoses Mixed anxiety depressive disorder Procedures Follow Up In Primary Care - Established Aleah Villa MD [address] [place] [id number] Phone: tel: fax: Referral ID Status Reason Start Date Expiration Date V isits Requested Visits Authorized [id number] Authorized 03/26/2024 03/26/2025 1 1 Specialty Diagnoses / Procedures Referred By Contac t Referred To Contact Radiology Diagnoses Other intervertebral disc displacement, lumbar region Procedures MR lumbar spine wo IV contrast [address], [address] [place] [address] Referral ID Status Reason Start Date Expiration Date Visits Requested Visits Authorized [id number] Pending Review Perform Procedure 11/18/2023 11/17/2024 1 1 Reason Comments Follow-up ER for elevated BP, fast heart rate, shaky Specialty Diagnoses / Procedures Referred By Contac t Referred To Contact Cardiology Diagnoses Tachycardia 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 Aleah Villa MD [address] [facility], [place] [id number] Referral ID Status Reason Start Date Expiration Date V isits Requested Visits Authorized [id number] Pending Review 11/23/2023 11/22/2024 1 1 Specialty Diagnoses / Procedures Referred By Contac t Referred To Contact Primary Care Diagnoses Mixed anxiety depressive disorder Procedures Follow Up In Primary Care - Established Aleah Villa MD [address] [facility], [place] [id number] Referral ID Status Reason Start Date Expiration Date V isits Requested Visits Authorized [id number] Authorized 12/30/2023 12/29/2024 1 1 Specialty Diagnoses / Procedures Referred By Contac t Referred To Contact Radiology Diagnoses Weight loss, non-intentional Procedures CT abdomen pelvis w IV contrast Aleah Villa MD [address] [facility], [place] [id number] Referral ID Status Reason Start Date Expiration Date Visits Requested Visits Authorized [id number] Authorized Perform Procedure 01/23/2024 01/22/2025 1 1 Reason Comments Follow-up Reason Comments 3 week follow up Pt is here today for 3 week follow up. Colonoscopy is due, her mammo and dexa scan have been ordered but they need scheduled. AWV due in July. Needs CSA and UDS Specialty Diagnoses / Procedures Referred By Contac t Referred To Contact Primary Care Diagnoses Mixed anxiety depressive disorder Procedures Follow Up In Primary Care - Established Aleah Villa MD [address] [facility], [address] [address] Phone: tel: fax: Referral ID Status Reason Start Date Expiration Date V isits Requested Visits Authorized [id number] Authorized 04/26/2024 04/26/2025 1 1 Reason Comments Hyperlipidemia Osteoporosis Last bone scan was Medicare Annual Wellness Visit Subsequen t Reason Comments UTI Dysuria and urgency X 3 days Care Teams (unrecognized sec tion and content) 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 Aleah Villa MD Family Provider Active Dr. Aleah Villa MD Primary Care Provider Active Team Status: Inactive Member Role Status Dates Dr. 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 Relationship Specialty Start Date End Date Aleah Villa MD [address] [facility], [place] [address] [place] [address] PCP - General 07/06/19 Aleah Villa MD [address] [facility], [place] [address] [place] [address] PCP - MSSP ACO Attributed Provider 05/09/23 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 Relationship Specialty Start Date End Date Aleah Villa MD [address] [facility], [place] [address] [place] [address] PCP - General 07/06/19 Aleah Villa MD [address] [facility], [place] [address] [place] [address] PCP - MSSP ACO Attributed Provider 05/09/23 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 Relationship Specialty Start Date End Date Aleah Villa MD [address] [facility], [place] [address] [place] [address] PCP - General 07/06/19 Aleah Villa MD [address] [facility], [place] [address] [place] [address] PCP - MSSP ACO Attributed Provider 05/09/23 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 Relationship Specialty Start Date End Date Aleah Villa MD [address] [facility], [place] [address] [place] [address] PCP - General 07/06/19 Aleah Villa MD [address] [facility], [place] [address] [place] [address] PCP - MSSP ACO Attributed Provider 05/09/23 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 Relationship Specialty Start Date End Date Aleah Villa MD [address] [facility], [place] [address] [place] [address] PCP - General 07/06/19 Aleah Villa MD [address] [facility], [place] [address] [place] [address] PCP - MSSP ACO Attributed Provider 05/09/23 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 Relationship Specialty Start Date End Date Aleah Villa MD [address] [facility], [place] [address] [place] [address] PCP - General 07/06/19 Aleah Villa MD [address] [facility], [place] [address] [place] [address] PCP - MSSP ACO Attributed Provider 05/09/23 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 Relationship Specialty Start Date End Date Aleah Villa MD [address] [facility], [place] [address] [place] [address] PCP - General 07/06/19 Aleah Villa MD [address] [facility], [place] [address] [place] [address] PCP - MSSP ACO Attributed Provider 05/09/23 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 Relationship Specialty Start Date End Date Villa, Aleah O, MD [address] [facility], [place] [address] [place] [address] PCP - General 07/06/19 Aleah Villa MD [address] [facility], [place] [address] [place] [address] PCP - MSSP ACO Attributed Provider 05/09/23 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 Relationship Specialty Start Date End Date Aleah Villa MD [address] [facility], [place] [address] [place] [address] PCP - MSSP ACO Attributed Provider 05/09/23 Zara Santa MD [address] [facility], [place] [address] [place] [address] PCP - General Family Medicine 05/30/24 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 Relationship Specialty Start Date End Date Aleah Villa MD [address] [facility], [place] [address] [place] [address] PCP - MSSP ACO Attributed Provider 05/09/23 Zara Santa MD [address] [facility], [place] [address] [place] [address] PCP - General Family Medicine 05/30/24 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 This clinical summary was aggregated from multiple sources. Caution should be exercised in using it in the provision of clinical care. This summary normalizes information from multiple sources, and as a consequence, information in this document may materially change the coding, format and clinical context of patient data. In addition, data may be omitted in some cases. CLINICAL DECISIONS SHOULD BE BASED ON THE PRIMARY CLINICAL RECORDS. [facility]. provides no warranty or guarantee of the accuracy or completeness of information in this document.
== END | disposition home or self-care (01) ==
LOC: OPBI 13:15
PROVIDERS: PCP Family Medicine; Referring Provider Family Medicine; Visit Provider Family Medicine
DX: Z12.31 Encounter for screening mammogram for malignant neoplasm of breast (principal); Z78.0 Asymptomatic menopausal state
CPT/HCPCS: 77063; 77067; 77080